=== PATIENT | female | born 1985 | race Caucasian/White ===

== ENCOUNTER 2023-04-09 16:00 | Outpatient (REF) | payer MEDICARE, MEDICAID, SELFPAY ==
[2023-04-10 11:42] LABS: Bilirubin Urine NEGATIVE (NEGATIVE); Blood Urine MODERATE (NEGATIVE); Clarity Urine CLEAR (CLEAR); Color Urine LT. YELLOW (YELLOW); Glucose Urine UA NEGATIVE (NEGATIVE); Ketones Urine NEGATIVE (NEGATIVE); Leukocyte Esterase Urine NEGATIVE (NEGATIVE); Nitrite Urine NEGATIVE (NEGATIVE); Protein Urine NEGATIVE (NEG/TRACE); Urobilinogen Urine 0.2 EU/dL (0.2-1.0)
[2023-04-10 11:44] LABS: Urine Microscopic Indicated YES
[2023-04-10 12:25] LABS: WBC Urine NONE SEEN #/HPF (NONE SEEN)
[2023-04-10 12:26] LABS: Bacteria Urine NONE SEEN #/HPF (NONE SEEN); Crystals Seen? None Seen #/HPF (None Seen); Mucus Urine NONE SEEN (NONE SEEN); Squamous Epithelial Cell Urine FEW #/LPF (NONE/RARE); Transitional Epi Cells Urine RARE #/LPF (NONE SEEN)
[2023-04-10 12:27] LABS: Cast Seen? NONE SEEN #/LPF (NONE SEEN); Urine Culture Indicated NO
== END 2023-04-09 16:01 ==
LOC: LAB 16:00
PROVIDERS: PCP Family Medicine; Visit Provider Family Medicine
DX: R53.1 Weakness (principal); R45.1 Restlessness and agitation; F50.89 Other specified eating disorder
CPT/HCPCS: 81003; 81015

== ENCOUNTER 2023-04-19 06:52 | Outpatient (OUT) | payer MEDICARE, MEDICAID, SELFPAY ==
[2023-04-19 07:39] LABS: Basophils Absolute Auto 0.1 10^3/uL (0.0-0.1); Basophils Percent Auto 2.2 % (0.2-2.0); Eosinophils Percent Auto 0.7 % (0.9-7.0); Hematocrit 38.1 % (36.0-48.0); Hemoglobin 12.7 g/dL (12.0-16.0); Lymphocytes Absolute Auto 1.2 10^3/uL (1.2-3.8); Mean Corpuscular HGB Conc 33.3 g/dL (29.9-35.2); Mean Corpuscular Hemoglobin 27.8 pg (26.7-34.0); Mean Corpuscular Volume 83.4 fL (81.0-99.0); Mean Platelet Volume 10.4 fL (9.5-13.5); Monocytes Absolute Auto 0.4 10^3/uL (0.3-0.8); Monocytes Percent Auto 16.3 % (1.7-12.0); Neutrophils Percent Auto 37.8 % (43.0-75.0); Platelet Count 140 10^3/uL (150-450); Red Blood Count 4.57 10^6/uL (4.20-5.40); Red Cell Distribution Width 12.6 % (11.0-15.0); White Blood Count 2.7 10^3/uL (4.0-11.0)
[2023-04-19 08:58] LABS: Alanine Aminotransferase 26 U/L (14-59); Albumin Globulin Ratio 1.1; Albumin Level 3.6 g/dL (3.4-5.0); Alkaline Phosphatase 105 U/L (46-116); Anion Gap 11.7; Aspartate Amino Transferase 19 U/L (15-37); BUN Creatinine Ratio 21.3; Bilirubin Total 0.3 mg/dL (0.2-1.0); Chloride 103 mmol/L (98-107); Estimated GFR (African America >60 (>=60); Estimated GFR (Non-African Ame >60 (>=60); Globulin 3.4 g/dL; Glucose 86 mg/dL (74-106); Potassium 4.7 mmol/L (3.5-5.1); Sodium 136 mmol/L (136-145)
== END 2023-04-19 06:53 ==
LOC: LAB 06:55
PROVIDERS: PCP Family Medicine; Visit Provider Family Medicine
DX: Z79.899 Other long term (current) drug therapy (principal); K29.70 Gastritis, unspecified, without bleeding
CPT/HCPCS: 36415; 80053; 85025

== ENCOUNTER 2023-12-13 09:22 | Outpatient (OUT) | payer MEDICARE, MEDICAID, SELFPAY ==
[2023-12-13 10:07] LABS: HCG Qualitative NEGATIVE (NEGATIVE)
[2023-12-13 10:36] LABS: HCG Quantitative 2 mIU/mL
[2023-12-14 06:10] LABS: HIV Ab/p24 Ag Screen Non Reactive (Non Reactive)
[2023-12-14 10:11] LABS: Rapid Plasma Reagin, Quant Non Reactive titer (NonRea<1:1)
== END 2023-12-13 09:23 | disposition home or self-care (01) ==
LOC: LAB 09:22
PROVIDERS: PCP Family Medicine; Visit Provider Family Medicine
DX: T76.21XA Adult sexual abuse, suspected, initial encounter (principal); Z32.00 Encounter for pregnancy test, result unknown
CPT/HCPCS: 36415; 84702; 84703; 86592; 87389

== ENCOUNTER 2024-01-15 06:29 | Outpatient (OUT) | payer MEDICARE, MEDICAID, SELFPAY ==
--- OUTSIDE RECORDS SUMMARY | 2024-01-15 06:33 | XMS_ITS | CCD ---
Author Name Unknown Address [address] [place] [address] Organization [facility] Care Team Providers Care Bull Riveter Name Role Phone Unavailable Primary Care Provider UnavailEriberto Edgar Primary Care Provider [phone] Eriberto Layne Primary Care Provider [phone] MD Stephane House Attending Provider ROVERTO, DR ERIBERTO Taylor Primary Care Unavailable CORPUS CHRISTI, DR ROBERT Damian Consulting Unavailable DEVANTE FOSTER Admitting Unavailable DEVANTE FOSTER Attending Unavailable JN ., DEVANTE Consulting Unavailable ROBERT STAHL Consulting Unavailable LAYNE, DR ERIBERTO Taylor Consulting Unavailable LAYNE, DR ERIBERTO Taylor Attending Unavailable LAYNE, DR ERIBERTO Taylor Admitting Unavailable LAYNE, DR ERIBERTO Taylor Primary Care Unavailable KENDRICK, DR ELEANOR Pierre Admitting Unavailable LANGSTON, DR ELEANOR Pierre Consulting Unavailable LANGSTON, DR ELEANOR Pierre Attending Unavailable LAYNE, DR ERIBERTO Taylor Primary Care Unavailable AHOT, LALO Consulting Unavailable April Garnica Attending Unavailable April Garnica Admitting Unavailable Lacy, Stephane Attending Unavailable Stephane House Admitting Unavailable NON STAFF Primary Care Unavailable LIDIA Garnica Attending Provider ERIBERTO LAYNE Primary Care Physician PROVIDER, UNKNOWN Admitting Unavailable PROVIDER, UNKNOWN Attending Unavailable NILDA DAVENPORT Referring Unavailable NILDA DAVENPORT Admitting Unavailable NILDA DAVENPORT Attending Unavailable Unavailable Primary Care Provider UnavailERIBERTO Edgar Attending Unavailable ERIBERTO LAYNE Referring Unavailable ERIBERTO LAYNE Admitting Unavailable LAYNEERIBERTO MEJIA Attending Unavailable LAYNEERIBERTO MEJIA Admitting Unavailable Layne Eriberto OVERTON Primary Care Provider ANTIONETTE DORMAN Attending Unavailable LAYNE, ERIBERTO PARKER Primary Care Unavailab le AL BANMEME, DENISE Attending Unavailable LAYNE, ERIBERTO PARKER Primary Care Unavailab le AL BANNA, DENISE Attending Unavailable NIYA LANDAVERDE Referring Unavailable LAYNE, ERIBERTO PARKER Primary Care Unavailab le RYBARCZJESUS, SUSAN Referring Unavailable LAYNE, ERIBERTO PARKER Primary Care Unavailab le ROSALINA, SUSAN Referring Unavailable LAYNE, ERIBERTO PARKER Primary Care Unavailab le MELISSA, BELLA Escoto Admitting Unavailable SANCHEZ, BELLA Escoto Attending Unavailable LAYNE, ERIBERTO PARKER Primary Care Unavailab le LAYNE, ERIBERTO PARKER Primary Care Unavailab le RYGONZÁLEZ, SUSAN Referring Unavailable LAYNE, ERIBERTO PARKER Primary Care Unavailab le CORIE, KEITH Attending Unavailable LAYNE, ERIBERTO PARKER [facility] Unavailab le BETO, REBECCA Attending Unavailable CORIE, KEITH Referring Unavailable LAYNE, ERIBERTO PARKER Primary Care Unavailab le ROSALINA, SUSAN Attending Unavailable RIA LANGSTON Referring Unavailable LAYNE, ERIBERTO PARKER [facility] Unavailab le LAKIA, ANTIONETTE Pierre Attending Unavailable LAKIA, ANTIONETTE Pierre Referring Unavailable LAYNE, ERIBERTO PARKER [facility] Unavailab le LAKIA, ANTIONETTE Pierre Attending Unavailable LAKIA, ANTIONETTE Pierre Referring Unavailable LAYNE, ERIBERTO PARKER Primary [facility] Unavailab le Unavailable Primary Care Provider Unavailabl e Allergies Allergy Classification Reported Allergen(s) Allergy Type Date of Onset Reaction(s) Facility (13 sources) Lactose; Translations: [LACTOSE] Drug Allergy 5 Diarrhea, GI Upset [facility] (1 source) Lactose Drug Allergy 9 [facility] Medications Current Medications Medication Drug Class(es) Dates Sig (Normalized) Sig (Original) amoxicillin 500 mg oral capsule (1 source) Penicillin-class Antibacterial Start: 08-18-2022 End: 08-25-2022 take 1 capsule by mouth three times daily amoxicillin (AMOXIL) 500 MG capsule Take 1 Capsule by mouth 3 times daily for 7 days. 21 Capsule 0 08/18/2022 08/25/2022 Active chlorhexidine gluconate 1.2 mg/ml mouthwash (5 sources) Start: 09-30-2012 chlorhexidine (PERIDEX) 0.12 % oral solution Soak toothbrush with oral solution and brush 3x/daily. 1 Bottle 3 09/30/2012 Active docusate sodium 100 mg oral tablet (20 sources) Start: 08-02-2022 take 2 tablets by mouth twice daily DOK 100 MG TABS TAKE TWO TABLETS BY MOUTH TWICE A DAY 0 08/02/2022 Active Start: 08-29-2013 End: 09-24-2023 take 1 capsule by mouth three times daily docusate sodium (COLACE) 100 mg capsule Take 1 capsule by mouth three times daily. 0 08/29/2013 09/24/2023 Discontinued take 2 capsules by m out three times daily docusate sodium (COLACE) 100 MG capsule Take 200 mg by mouth 3 times daily. 0 Active Comment on above: Take 1 capsule by mo nch three times daily. ethinyl estradiol 0.035 mg / norethindrone acetate 1 mg oral tablet (4 sources) Estrogen Start: 08-02-2022 take 1 tablet by mouth once daily Nortrel 1/35, 28, 1-35 MG-MCG tablet TAKE ONE TABLET BY MOUTH ONCE DAILY FOR 21 DAYS, SKIP SUGAR PILLS. TAKE SUGAR PILLS EVERY THIRD PACK 0 08/02/2022 Active Start: 07-01-2009 norethindrone- ethinyl estrad(NORTREL 1/35 (21) 1 MG-35 MCG TAB) Take one(1) tablet daily. 0 07/01/2009 Suspended Comment on above: Take one(1) tablet d aily. ibuprofen 600 mg oral tablet (5 sources) Nonsteroidal Anti-inflammatory Drug Start: 2013 take 1 tablet by mouth every six hours as needed for pain ibuprofen (MOTRIN) 600 MG tablet Take 1 Tab by mouth every 6 hours as needed for Pain. 30 Tab 3 01/09/2014 Active iv contrast (will be provided with radiology test) (1 source) Start: 2021 End: 2021 inject 1 dose intravenously once iv contrast (will be provided with radiology test) MRI Brain Inject, intravenously, once for 1 dose.No IV access, insert saline lock prior to beginning of sedation, infusion, injection of imaging exam.Discontinue saline lock post exam. If Pt. has a central line or IVAD, may access for administration according to line specific nursing protocol.Once exam is complete flush line and de-access according to line specific nursing protocol in the MR contrast administration guidelines link 1 Each 0 10/11/2022 10/12/2022 Active Comment on above: MRI Brain Inject, in travenously, once for 1 dose.No IV access, insert saline lock prior to beginning of sedation, infusion, injection of imaging exam.Discontinue saline lock post exam. If Pt. has a central line or IVAD, may access for administration according to line specific nursing protocol.Once exam is complete flush line and de-access according to line specific nursing protocol in the MR contrast administration guidelines link linaclotide 0.29 mg oral capsule (20 sources) Guanylate Cyclase-C Agonist Start: 2021 take 1 capsule by mouth once daily Linzess 290 MCG CAPS capsule Take 290 mcg by mouth daily. 0 08/08/2022 Active Comment on above: Take by mouth once d aily. loperamide hydrochloride 2 mg oral capsule (3 sources) Opioid Agonist Start: 2021 take 2 capsules by mouth every other day loperamide (IMODIUM) 2 MG capsule TAKE 2 CAPSULES (4MG) BY MOUTH FOLLOWING INITIAL STOOL THEN 1 CAPSULE (2MG) AFTER EACH STOOL UNTIL DIARRHEA SUBSIDES UP TO 2 DAYS. MAX 16MG 0 06/27/2022 Active Multiple Vitamins-Minerals (MULTIVITAMIN & MINERAL ORAL) (5 sources) Multiple Vitamins-Minerals (MULTIVITAMIN & MINERAL ORAL) Take by mouth daily. 0 Active omeprazole 20 mg delayed release oral capsule (4 sources) Proton Pump Inhibitor Start: 2021 omeprazole (PRILOSEC) 20 MG capsule Comment on above: Take 20 mg by mouth once daily. raNITIdine 75 mg oral tablet (5 sources) Histamine-2 Receptor Antagonist take 1 tablet by mouth twice daily ranitidine (ZANTAC) 75 MG tablet Take 75 mg by mouth 2 times daily. 0 Active selenium sulfide 25 mg/ml medicated shampoo (3 sources) Start: 2021 selenium sulfide 2.5 % topical suspension Completed/Discontinued Medications Medication Drug Class(es) Dates Sig (Normalized) Sig (Original) acetaminophen 325 mg oral tablet (20 sources) Start: 09-22-2022 take 2 tablets enteral route every four hours as needed acetaminophen (TYLENOL) 325 mg tablet 2 tablets by ORAL/FEEDING TUBE route every 4 hours as needed for pain. 0 09/22/2022 Active Start: 09-22-2022 take 2 tablets by mo uth every four hours as needed acetaminophen (TYLENOL) 325 mg tablet 2 tablets by ORAL/FEEDING TUBE route every 4 hours as needed for pain. 0 09/22/2022 Active Start: 08-18-2022 take 1 tablet by edwige th every six hours as needed for pain acetaminophen (TYLENOL) 500 MG tablet Take 1 Tablet by mouth every 6 hours as needed for Pain or Fever. 30 Tablet 1 08/18/2022 Active Comment on above: 2 tablets by ORAL/FE EDING TUBE route every 4 hours as needed for pain. aluminum hydroxide 40 mg/ml / magnesium hydroxide 40 mg/ml / simethicone 4 mg/ml oral suspension (20 sources) Start: take 30 mL by mouth every six hours as needed aluminum-magnesium hydroxide-simethicon e (MAALOX,MYLANTA,MAG- AL PLUS) 200-200-20 mg/5 mL suspension Take 30 mL by mouth every 6 hours as needed. 0 09/22/2022 Active Comment on above: Take 30 mL by mouth every 6 hours as needed. 1 ml heparin sodium, porcine 5000 unt/ml injection (14 sources) Unfractionated Heparin, Anti-coagulant Start: End: inject 0.5 mL by subcutaneous injection every twelve hours heparin 5,000 unit/mL injection Inject 0.5 mL subcutaneously every 12 hours. 0 09/22/2022 11/28/2022 Discontinued (Course of therapy completed) Comment on above: Inject 0.5 mL subcut aneously every 12 hours. lisinopril 5 mg oral tablet (20 sources) Angiotensin Converting Enzyme Inhibitor Start: take 1 tablet by mouth once daily lisinopril (ZESTRIL, PRINIVIL) 5 mg tablet 1 tablet by ORAL/FEEDING TUBE route once daily. 0 09/23/2022 Active Start: 09-23-2022 take 1 tablet by edwige th once daily lisinopril (ZESTRIL, PRINIVIL) 5 mg tablet 1 tablet by ORAL/FEEDING TUBE route once daily. 0 09/23/2022 Active Comment on above: 1 tablet by ORAL/FEE DING TUBE route once daily. loratadine 10 mg oral tablet (20 sources) Start: 1 take 1 tablet by mouth once daily as needed loratadine (CLARITIN) 10 mg tablet Take 1 tablet by mouth once daily as needed for Cold/Allergy Symptoms (for allergy symptoms). 0 04/07/2011 Active Comment on above: Take 1 tablet by edwige th once daily as needed for Cold/Allergy Symptoms (for allergy symptoms). melatonin 3 mg oral tablet (20 sources) Start: 2 take 1 tablet by mouth once daily at bedtime melatonin 3 mg tablet 1 tablet by ORAL/FEEDING TUBE route daily at bedtime. 0 09/22/2022 Active Start: 09-22-2022 take 1 tablet by edwige th once daily at bedtime melatonin 3 mg tablet 1 tablet by ORAL/FEEDING TUBE route daily at bedtime. 0 09/22/2022 Active Comment on above: 1 tablet by ORAL/FEE DING TUBE route daily at bedtime. montelukast 10 mg oral tablet (20 sources) Leukotriene Receptor Antagonist Start: 05-24-2017 montelukast (SINGULAIR) 10 mg tablet MULTIVITAMIN TAB (20 sources) Start: 07-01-2009 MULTIVITAMIN TAB Take one(1) tablet daily. 0 07/01/2009 Active Start: 07-01-2009 MULTIVITAMIN T AB Take one(1) tablet daily. 0 07/01/2009 Suspended Comment on above: Take one(1) tablet d aily. OLANZapine 15 mg oral tablet (20 sources) Atypical Antipsychotic Start: 2 take 1 tablet by mouth once daily at bedtime OLANZapine (ZYPREXA) 15 mg tablet 1 tablet by ORAL/FEEDING TUBE route daily at bedtime. 0 09/22/2022 Active Start: 09-22-2022 take 1 tablet by edwige th once daily at bedtime OLANZapine (ZYPREXA) 15 mg tablet 1 tablet by ORAL/FEEDING TUBE route daily at bedtime. 0 09/22/2022 Active Start: 07-01-2009 olanzapine(ZYP REXA 10 MG TAB) take 1 tab at bedtime daily 0 07/01/2009 Suspended Comment on above: take 1 tab at bedtim e daily 1 tablet by ORAL/FEE DING TUBE route daily at bedtime. 2 ml ondansetron 2 mg/ml injection (20 sources) Serotonin-3 Receptor Antagonist Start: take 4 mg intravenously every six hours as needed ondansetron, PF, (ZOFRAN) 4 mg/2 mL soln Inject 4 mg intravenously every 6 hours as needed. 0 09/22/2022 Active Comment on above: Inject 4 mg intraven ously every 6 hours as needed. polyethylene glycol 3350 13576 mg powder for oral solution (1 source) Osmotic Laxative Start: polyethylene glycol 3350 (MIRALAX) 17 gram/dose powder Take 17 g by mouth once daily. 0 09/24/2023 Active Comment on above: Take 17 g by mouth o nce daily. sennosides, long term 8.6 mg oral capsule (10 sources) Start: End: Sennosides (SENNA) 8.6 mg cap Take 1 capsule by mouth as needed. 0 10/06/2022 11/28/2022 Discontinued (Discontinued by another Health Care Provider) Comment on above: Take 1 capsule by [facility] as needed. sodium fluoride 2 mg/ml mouthwash (20 sources) Sodium Fluoride, Dental Rinse, (PREVIDENT) 0.2 % soln by DENTAL route. Use every Sunday at bedtime. 0 Active Comment on above: by DENTAL route. Use every Sunday at bedtime. sucralfate 100 mg/ml oral suspension (20 sources) Aluminum Complex Start: take 10 mL by mouth three times daily before mealtime sucralfate (CARAFATE) 100 mg/mL suspension Take 10 mL by mouth three times daily before meals. 900 mL 11 08/23/2016 Active take 1 tablet by mouth three [place] es daily sucralfate (CARAFATE) 1 GM tablet Take 1 g by mouth 3 times daily. 0 Active Comment on above: Take 10 mL by mouth three times daily before meals. 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] Onset: 2 09-12-2022 Chronic Complications of surgical procedures or medical care (1 source) Disorder of stoma; Translations: [Other complications of gastrostomy] Episodic Developmental disorders (2 sources) Unspecified intellectual disabilities; Translations: [Profound intellectual disabilities] Onset: 2 Chronic Esophageal disorders (20 sources) Gastroesophageal reflux disease; Translations: [Gastro-esophageal reflux disease without esophagitis] Onset: 9 08-15-2022 Chronic Hypertension with complications and secondary hypertension (20 sources) Secondary hypertension; Translations: [Secondary hypertension, unspecified] Onset: 2 09-08-2022 Chronic Late effects of cerebrovascular disease (20 sources) 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; Translations: [Dysphagia following nontraumatic intracerebral hemorrhage] Onset: 2 09-06-2022 Chronic Mycoses (1 source) Candidiasis of mouth; Translations: [Candidal stomatitis] Episodic Nutritional deficiencies (20 sources) Undernutrition; Translations: [Mild protein-calorie malnutrition] Onset: 2 09-07-2022 Chronic Other aftercare (1 source) Other correction (current) drug therapy; Translations: [OTH [facility] CURRENT DRUG THERAPY] Onset: 2 Episodic Other congenital anomalies (20 sources) De Hastings syndrome; 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] Onset: 5 08-15-2022 Chronic Other gastrointestinal disorders (20 sources) History of fundoplication; Translations: [Gastrostomy status] Onset: 2 09-07-2022 Chronic Other gastrointestinal disorders (4 sources) Encounter for attention to gastrostomy; Translations: [ENCOUNTER FOR ATTENTION GASTROSTOMY] Onset: 2 Chronic Other gastrointestinal disorders (4 sources) Dysphagia, unspecified; Translations: [DYSPHAGIA UNSPECIFIED] Onset: 2 Episodic Other gastrointestinal disorders (2 sources) Slow transit constipation; Translations: [Slow transit constipation] Episodic Other nutritional; endocrine; and metabolic disorders (20 sources) Hypomagnesemia; Translations: [Hypomagnesemia] Onset: 2 09-12-2022 Chronic Other nutritional; endocrine; and metabolic disorders (1 source) Anorexia; Translations: [ANOREXIA] Onset: 3 Episodic Paralysis (20 sources) Flaccid hemiplegia of left nondominant side; Translations: [Flaccid hemiplegia affecting left nondominant side] Onset: 2 09-06-2022 Chronic Residual codes; unclassified (20 sources) Restlessness and agitation; Translations: [Restlessness and agitation] Onset: 2 09-15-2022 Chronic Residual codes; unclassified (3 sources) Restlessness and agitation; Translations: [RESTLESSNESS AND AGITATION] Onset: 3 Chronic Residual codes; unclassified (1 source) History of fundoplication; Translations: [Other specified postprocedural states] Episodic Unclassified (1 source) OPENED IN ERROR Unclassified (2 sources) 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; Translations: [OTH CNG MLFM SYN PRDM ASC SHRT STAT] Onset: 2 Unclassified (1 source) CONTACT W/AND (SUSP) EXPOS COVID-19; Translations: [CONTACT W/AND (SUSP) EXPOS COVID-19] Onset: 2 Unclassified (1 source) Gynecologic Exam Onset: 4 Past or Other Problems Problem Classification Problem Date Documented Da te Episodic/Chronic Abdominal pain (1 source) Abdominal pain Onset: 04-06-2023 Episodic Disorders of teeth and jaw (6 sources) Dental caries; Translations: [Dental caries, unspecified] Onset: 11-25-2018 08-10-2022 Episodic Fluid and electrolyte disorders (20 sources) Hypokalemia; Translations: [Hypokalemia] Onset: 09-13-2022 09-13-2022 Episodic Neoplasms of unspecified nature or uncertain behavior (1 source) Neoplasm of unspecified behavior of bone, soft tissue, and skin; Translations: [Neoplasm of unspecified behavior of bone, soft tissue, and skin] Onset: 11-15-2022 Episodic Other circulatory disease (1 source) Unspecified disorder of circulatory system; Translations: [Vasculopathy] Onset: 12-27-2022 Episodic Other gastrointestinal disorders (20 sources) Constipation; Translations: [Constipation, unspecified] Onset: 02-15-2010 08-15-2022 Episodic Other nutritional; endocrine; and metabolic disorders (1 source) Unspecified lack of expected normal physiological development in childhood; Translations: [Developmental delay] Onset: 03-28-2023 Episodic Other screening for suspected conditions (not mental disorders or infectious disease) (20 sources) Other specified abnormal findings of blood chemistry; Translations: [Other abnormal blood chemistry] Onset: 09-14-2022 09-14-2022 Episodic Results Test Name Value Interpretation Reference Range Facility [facility] 09-24-2023 [facility] Telephone (GASTMADDIE) CHERYL SCRUGGS ([id number]) 1985 F Date Time Provider Department 09/24/23 ANTIONETTE DORMAN GASTMADDIE During your visit today, we recorded the following information about you: Antionette Dorman MD, PhD 09/24/2023 10:35 AM Signed Missed appt Called mom lm Allergies As of Date: 09/24/2023 Noted Allergy Reaction LACTOSE 1985 6 - Diarrhea 8 - GI Upset Date Reviewed: 04/06/2023 Reviewed by: Blanca Nugent, RN - Fully Assessed Prescriptions as of 09/24/2023 - OLANZapine (ZYPREXA) 15 mg tablet 1 tablet by ORAL/FEEDING TUBE route daily at bedtime. - acetaminophen (TYLENOL) 325 mg tablet 2 tablets by ORAL/FEEDING TUBE route every 4 hours as needed for pain. - aluminum-magnesium hydroxide-simethicon e (MAALOX,MYLANTA,MAG- AL PLUS) 200-200-20 mg/5 mL suspension Take 30 mL by mouth every 6 hours as needed. - lisinopril (ZESTRIL, PRINIVIL) 5 mg tablet 1 tablet by ORAL/FEEDING TUBE route once daily. - melatonin 3 mg tablet 1 tablet by ORAL/FEEDING TUBE route daily at bedtime. - ondansetron, PF, (ZOFRAN) 4 mg/2 mL soln Inject 4 mg intravenously every 6 hours as needed. - linaCLOtide (LINZESS) 290 mcg capsule Take by mouth once daily. - Sodium Fluoride, Dental Rinse, (PREVIDENT) 0.2 % soln by DENTAL route. Use every Sunday at bedtime. - montelukast (SINGULAIR) 10 mg tablet - sucralfate (CARAFATE) 100 mg/mL suspension Take 10 mL by mouth three times daily before meals. - docusate sodium (COLACE) 100 mg capsule Take 1 capsule by mouth three times daily. - loratadine (CLARITIN) 10 mg tablet Take 1 tablet by mouth once daily as needed for Cold/Allergy Symptoms (for allergy symptoms). - MULTIVITAMIN TAB Take one(1) tablet daily. 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] 03/18/2015 Right-sided nontraumatic intracerebral hemorrha*09/05/2022 Flaccid hemiplegia affecting left nondominant s*09/06/2022 03/28/2023 Dysphagia following nontraumatic intracerebral *09/06/2022 S/P Stefanie fundoplication (with gastrostomy tub*09/07/2022 Malnutrition of mild degree (HCC) [E44.1] 09/07/2022 Secondary hypertension [I15.9] 09/08/2022 Hypomagnesemia [E83.42] 09/12/2022 Thrombocytopenia (HCC) [D69.6] 09/12/2022 09/18/2022 Hypokalemia [E87.6] 09/13/2022 Elevated LFTs [R79.89] 09/14/2022 Restlessness and agitation [R45.1] 09/15/2022 Encounter Status:Closed by ANTIONETTE DORMAN on 09/24/23 Normal [facility] Auto Diffon 09-19-2023 Basophils/100 WBC (Bld) 1.6 % Normal 0.0-2.0 [facility] Comment on above: Order Comment: Order Added by Discern Expert. Performed By: #### 2 [id number] #### [facility] [address] [place] [address] Basophils/Leukocytes Auto (Bld) [Pure # fraction] 0.1 E9/L Normal 0.0-0.2 [facility] Comment on above: Order Comment: Order Added by Discern Expert. Performed By: #### 2 [id number] #### [facility] [address] [place] [address] Eosinophils/100 WBC (Bld) 0.0 % Normal 0.0-8.0 [facility] Comment on above: Order Comment: Order Added by Discern Expert. Performed By: #### 2 [id number] #### [facility] [address] [place] [id number] Eosinophils/Leukocyte s Auto (Bld) [Pure # fraction] 0.0 E9/L Normal 0.0-0.5 [facility] Comment on above: Order Comment: Order Added by Discern Expert. Performed By: #### 2 [id number] #### [facility] [address] [place] [address] Lymphocytes/100 WBC (Bld) 36.1 % Normal 14.0-50.0 [facility] Comment on above: Order Comment: Order Added by Discern Expert. Performed By: #### 2 [id number] #### [facility] [address] [place] [id number] Lymphocytes/Leukocyte s Auto (Bld) [Pure # fraction] 1.2 E9/L Normal 1.0-4.0 [facility] Comment on above: Order Comment: Order Added by Discern Expert. Performed By: #### 2 [id number] #### [facility] [address] [place] [address] Monocytes/100 WBC (Bld) 12.9 % Normal 4.0-14.0 [facility] Comment on above: Order Comment: Order Added by Discern Expert. Performed By: #### 2 [id number], [id number] #### [facility] [address] [place] [id number] Monocytes/Leukocytes Auto (Bld) [Pure # fraction] 0.4 E9/L Normal 0.2-1.0 [facility] Comment on above: Order Comment: Order Added by Discern Expert. Performed By: #### 2 [id number] #### [facility] [address] [place] [address] Neutrophils/100 WBC (Bld) 49.4 % Normal 36.0-75.0 [facility] Comment on above: Order Comment: Order Added by Discern Expert. Performed By: #### 2 [id number], [id number] #### [facility] [address] [place] [address] Neutrophils/Leukocyte s Auto (Bld) [Pure # fraction] 1.6 E9/L Low 2.0-7.5 [facility] Comment on above: Order Comment: Order Added by Discern Expert. Performed By: #### 2 [id number] #### [facility] [address] [place] [address] CBC w/ Auto Diffon 3 Erythrocyte distribution width (RBC) [Ratio] 14.3 % High 10.9-14.2 [facility] Comment on above: Performed By: #### 2 [id number] #### [facility] [address] [place] [address] Hematocrit (Bld) [Volume fraction] 39.7 % Normal 34.0-46.0 [facility] Comment on above: Performed By: #### 2 [id number] #### [facility] [address] [place] [address] Hemoglobin (Bld) [Mass/Vol] 13.0 g/dL Normal 12.0-16.0 [facility] Comment on above: Performed By: #### 2 [id number], [id number] #### [facility] [address] [place] [address] MCH (RBC) [Entitic mass] 27.5 pg Normal 27.0-34.0 [facility] Comment on above: Performed By: #### 2 [id number], [id number] #### [facility] [address] [place] [address] MCHC (RBC) [Mass/Vol] 32.6 g/dL Normal 31.4-36.0 [facility] Comment on above: Performed By: #### 2 [id number], [id number] #### [facility] [address] [place] [address] MCV (RBC) [Entitic vol] 84.3 fL Normal 80.0-100.0 [facility] Comment on above: Performed By: #### 2 [id number], [id number] #### [facility] [address] [place] [address] Platelet mean volume (Bld) [Entitic vol] 8.9 fL Normal 6.4-10.8 [facility] Comment on above: Performed By: #### 2 [id number], [id number] #### [facility] [address] [place] [address] Platelets (Bld) [#/Vol] 140.0 E9/L Low 150.0-500.0 [facility] Comment on above: Performed By: #### 2 [id number], [id number] #### [facility] [address] [place] [address] RBC (Bld) [#/Vol] 4.7 E12/L Normal 4.3-5.9 [facility] Comment on above: Performed By: #### 2 [id number], [id number] #### [facility] [address] [place] [address] WBC corrected for nucl RBC Auto (Bld) [#/Vol] 3.3 E9/L Low 4.0-11.0 [facility] Comment on above: Performed By: #### 2 [id number], [id number] #### [facility] [address] [place] [address] HEMATOLOGYOrdered By: SYSTEM SYSTEM on 09-19-2023 Basophils/100 WBC (Bld) 1.6 % Normal 0.0 - 2.0 % [facility] Basophils/Leukocytes Auto (Bld) [Pure # fraction] 0.1 E9/L Normal 0.0 - 0.2 E9/L [facility] Eosinophils/100 WBC (Bld) 0.0 % Normal 0.0 - 8.0 % [facility] Eosinophils/Leukocyte s Auto (Bld) [Pure # fraction] 0.0 E9/L Normal 0.0 - 0.5 E9/L [facility] Lymphocytes/100 WBC (Bld) 36.1 % Normal 14.0 - 50.0 % [facility] Lymphocytes/Leukocyte s Auto (Bld) [Pure # fraction] 1.2 E9/L Normal 1.0 - 4.0 E9/L [facility] Monocytes/100 WBC (Bld) 12.9 % Normal 4.0 - 14.0 % [facility] Monocytes/Leukocytes Auto (Bld) [Pure # fraction] 0.4 E9/L Normal 0.2 - 1.0 E9/L [facility] Neutrophils/100 WBC (Bld) 49.4 % Normal 36.0 - 75.0 % [facility] Neutrophils/Leukocyte s Auto (Bld) [Pure # fraction] 1.6 E9/L Low 2.0 - 7.5 E9/L [facility] HEMATOLOGYOrdered By: Edwin Langston on 09-19-2023 Erythrocyte distribution width (RBC) [Ratio] 14.3 % High 10.9 - 14.2 % [facility] Hematocrit (Bld) [Volume fraction] 39.7 % Normal 34.0 - 46.0 % [facility] S Hemoglobin (Bld) [Mass/Vol] 13.0 g/dL Normal 12.0 - 16.0 gm/dL [facility] MCH (RBC) [Entitic mass] 27.5 pg Normal 27.0 - 34.0 pg [facility] MCHC (RBC) [Mass/Vol] 32.6 g/dL Normal 31.4 - 36.0 gm/dL [facility] MCV (RBC) [Entitic vol] 84.3 fL Normal 80.0 - 100.0 fL [facility] Platelet mean volume (Bld) [Entitic vol] 8.9 fL Normal 6.4 - 10.8 fL [facility] Platelets (Bld) [#/Vol] 140.0 E9/L Low 150.0 - 500.0 E9/L [facility] RBC (Bld) [#/Vol] 4.7 E12/L Normal 4.3 - 5.9 E12/L [facility] WBC corrected for nucl RBC Auto (Bld) [#/Vol] 3.3 E9/L Low 4.0 - 11.0 E9/L [facility] Physician Orderon 09-19-2023 Physician Order [id number] Normal [facility] Progress Noteson 05-09-2023 Hearing Aid Dispenser Authentication Interface Message Text ----- Tuesday, May 09, 2023 at 4:24:15 PM ----- ----- Provider: Coral Reynolds, Resident -- Clinic: [place] ----- [facility] called concerning about pt is grinding and night and chipped one of her teeth. I returned the call back but the nurse she didn't have any idea about the situation. Recommended calling and scheduling appt to address the problem Phone number: [phone] Ext: [phone] Normal [employer] Consent for Treatmenton 04-06 Consent for Treatment [phone] [id number] #1.00CD:127 Normal [facility] XR Adult Swallowing Function w/ Videoon 05-02-2023 XR Adult Swallowing Function w/ Video Exam Date/Time: 05/02/2023 09:20 EDT Reason for Exam: DYSPHAGIA Report IMPRESSION: PLEASE SEE DEDICATED SPEECH PATHOLOGY REPORT FOR FURTHER DETAILS. REASON FOR EXAM: Dysphagia TECHNIQUE: A modified barium swallow study was performed utilizing fluoroscopy in conjunction with speech pathology. Various consistencies of barium were administered. Number of images: 7 series The total radiation time is 3.4 minutes, Radiation dose area product is 192.99mGy*m2 Cumulative radiation dose is 8.30mGy FINDINGS: Fluoroscopic assistance was provided during the course of examination with any of the provided consistencies of pudding, fruit, larry cracker and thin liquids as noted in the final report. Ordering Provider: ERIBERTO LAYNE FINAL REPORT Dictated: 05/02/2023 2:29 pm Jamir Borderick MD, V. Signed (Electronic Signature): 05/02/2023 2:29 pm Signed by: Jamir Broderick MD, V. Transcribed by: DHARA Technologist: RENE Technical Comments Radiation Dose: Ka,r in mGy = 8.30 DAP = 192.99 Normal [facility] Physician Orderon 05-01-2023 Physician Order [id number] #1.00CD:127 Normal [facility] CNPNon 04-26-2023 CNPN Telephone (GASTMN) CHERYL SCRUGGS ([id number]) 1985 F Date Time Provider Department 04/26/23 ANTIONETTE DORMAN During your visit today, we recorded the following information about you: Minda Salinas Pss 04/26/2023 12:14 PM Signed MANUEL Dean with [facility] calling to confirm if appt should be kept for 05/01 because will not have modified barium swallow with Rowe Tino until 05/02. Nurses cell phone Patient has been identified by name and birthdate. Duration of symptoms: N/A Was an appointment scheduled: No Closing statement: Results or non-symptom based questions: Thank you for calling [facility], your call will be returned within the next business day. Minda Ceballos RN 04/26/2023 3:11 PM Signed Patient asking if needs to keep DH 05/01/23. (Not having barium swallow with Rowe Tino until 05/02) Last OV:04/06/23 Will ask MD Antionette Patel MD, PhD 04/26/2023 3:28 PM Signed Can cancel Jazzy Ceballos RN 04/26/2023 4:35 PM Signed Call placed to patient confirm can cancel DH appt on 05/01/23. Spoke to MANUEL Escalante at [facility]. Aware can cancel and would like to confirm with parents. Will confirm cancellation by tomorrow. Allergies As of Date: 04/26/2023 Noted Allergy Reaction LACTOSE 1985 6 - Diarrhea 8 - GI Upset Date Reviewed: 04/06/2023 Reviewed by: Blanca Nugent RN - Fully Assessed Reason for Visit: Appointment [186] Prescriptions as of 04/26/2023 - OLANZapine (ZYPREXA) 15 mg tablet 1 tablet by ORAL/FEEDING TUBE route daily at bedtime. - acetaminophen (TYLENOL) 325 mg tablet 2 tablets by ORAL/FEEDING TUBE route every 4 hours as needed for pain. - aluminum-magnesium hydroxide-simethicon e (MAALOX,MYLANTA,MAG- AL PLUS) 200-200-20 mg/5 mL suspension Take 30 mL by mouth every 6 hours as needed. - lisinopril (ZESTRIL, PRINIVIL) 5 mg tablet 1 tablet by ORAL/FEEDING TUBE route once daily. - melatonin 3 mg tablet 1 tablet by ORAL/FEEDING TUBE route daily at bedtime. - ondansetron, PF, (ZOFRAN) 4 mg/2 mL soln Inject 4 mg intravenously every 6 hours as needed. - linaCLOtide (LINZESS) 290 mcg capsule Take by mouth once daily. - Sodium Fluoride, Dental Rinse, (PREVIDENT) 0.2 % soln by DENTAL route. Use every Sunday at bedtime. - montelukast (SINGULAIR) 10 mg tablet - sucralfate (CARAFATE) 100 mg/mL suspension Take 10 mL by mouth three times daily before meals. - docusate sodium (COLACE) 100 mg capsule Take 1 capsule by mouth three times daily. - loratadine (CLARITIN) 10 mg tablet Take 1 tablet by mouth once daily as needed for Cold/Allergy Symptoms (for allergy symptoms). - MULTIVITAMIN TAB Take one(1) tablet daily. 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 03/28/2023 Dysphagia following nontraumatic intracerebral *09/06/2022 S/P Stefanie fundoplication (with gastrostomy tub*09/07/2022 Malnutrition of mild degree (HCC) [E44.1] 09/07/2022 Secondary hypertension [I15.9] 09/08/2022 Hypomagnesemia [E83.42] 09/12/2022 Thrombocytopenia (HCC) [D69.6] 09/12/2022 09/18/2022 Hypokalemia [E87.6] 09/13/2022 Elevated LFTs [R79.89] 09/14/2022 Restlessness and agitation [R45.1] 09/15/2022 Encounter Status:Closed by JAZZY CEBALLOS on 04/26/23 [facility] 04-19-2023 CNPN Telephone (PGASMN) CHERYL SCRUGGS ([id number]) 1985 F Date Time Provider Department 04/19/23 ANTIONETTE DORMAN During your visit today, we recorded the following information about you: Antionette Dorman MD, PhD 04/19/2023 11:40 AM Signed Called mom Got voice mail Call Quang Says she is doing better She is eating Refusing fluids Going through spurts where she wont eat and hits her selt Holding things in mouth Has a swallow study Trying to do I and 0 Still ripped it out Had excessive burping At times On 2 abx for scalp infection On highter dose carafate Advised may need ppi Allergies As of Date: 04/19/2023 Noted Allergy Reaction LACTOSE 1985 6 - Diarrhea 8 - GI Upset Date Reviewed: 04/06/2023 Reviewed by: Blanca Nugent RN - Fully Assessed Reason for Visit: Patient Update [1234] Prescriptions as of 04/19/2023 - OLANZapine (ZYPREXA) 15 mg tablet 1 tablet by ORAL/FEEDING TUBE route daily at bedtime. - acetaminophen (TYLENOL) 325 mg tablet 2 tablets by ORAL/FEEDING TUBE route every 4 hours as needed for pain. - aluminum-magnesium hydroxide-simethicon e (MAALOX,MYLANTA,MAG- AL PLUS) 200-200-20 mg/5 mL suspension Take 30 mL by mouth every 6 hours as needed. - lisinopril (ZESTRIL, PRINIVIL) 5 mg tablet 1 tablet by ORAL/FEEDING TUBE route once daily. - melatonin 3 mg tablet 1 tablet by ORAL/FEEDING TUBE route daily at bedtime. - ondansetron, PF, (ZOFRAN) 4 mg/2 mL soln Inject 4 mg intravenously every 6 hours as needed. - linaCLOtide (LINZESS) 290 mcg capsule Take by mouth once daily. - Sodium Fluoride, Dental Rinse, (PREVIDENT) 0.2 % soln by DENTAL route. Use every Sunday at bedtime. - montelukast (SINGULAIR) 10 mg tablet - sucralfate (CARAFATE) 100 mg/mL suspension Take 10 mL by mouth three times daily before meals. - docusate sodium (COLACE) 100 mg capsule Take 1 capsule by mouth three times daily. - loratadine (CLARITIN) 10 mg tablet Take 1 tablet by mouth once daily as needed for Cold/Allergy Symptoms (for allergy symptoms). - MULTIVITAMIN TAB Take one(1) tablet daily. 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/2022 03/28/2023 Dysphagia following nontraumatic intracerebral *09/06/2022 S/P Stefanie fundoplication (with gastrostomy tub*09/07/2022 Malnutrition of mild degree (HCC) [E44.1] 09/07/2022 Secondary hypertension [I15.9] 09/08/2022 Hypomagnesemia [E83.42] 09/12/2022 Thrombocytopenia (HCC) [D69.6] 09/12/2022 09/18/2022 Hypokalemia [E87.6] 09/13/2022 Elevated LFTs [R79.89] 09/14/2022 Restlessness and agitation [R45.1] 09/15/2022 Encounter Status:Closed by ANTIONETTE DORMAN on 04/19/23 [facility] 04-09-2023 [facility] Telephone (GASTAV) CHERYL SCRUGGS ([id number]) 1985 F Date Time Provider Department 04/09/23 ANTIONETTE DORMAN During your visit today, we recorded the following information about you: Dunia Whitfield 04/09/2023 10:46 AM Signed Sammie from [facility] calling stating patient went to ED 04/[address] Dorman recommendations at OV / and patient left after 4 hours of being there and not being seen. Sammie would like to know when Dr Dorman would like patient to follow up. Sammie states patient went home with her mom that day and did eat. Sammie can be reached at [phone]. Please advise. Jazzy Ceballos, JUVE 04/13/2023 2:13 PM Signed Will update Dr. Lakia MD (Can I offer 06/08/23 at 1pm-same day?I do not see anything sooner) Susan Barnes OCCClaudia 05/23/2023 2:05 PM Signed Received Barium swallow study on 05/23/2023. Sent down to be scanned on 05/23/23. Susan Barnes KOJO Allergies As of Date: 04/09/2023 Noted Allergy Reaction LACTOSE 1985 6 - Diarrhea 8 - GI Upset Date Reviewed: 04/06/2023 Reviewed by: Blanca Nugent RN - Fully Assessed Reason for Visit: Patient Update [3784] Received Outside Medical Records [3576] Prescriptions as of 05/23/2023 - OLANZapine (ZYPREXA) 15 mg tablet 1 tablet by ORAL/FEEDING TUBE route daily at bedtime. - acetaminophen (TYLENOL) 325 mg tablet 2 tablets by ORAL/FEEDING TUBE route every 4 hours as needed for pain. - aluminum-magnesium hydroxide-simethicon e (MAALOX,MYLANTA,MAG- AL PLUS) 200-200-20 mg/5 mL suspension Take 30 mL by mouth every 6 hours as needed. - lisinopril (ZESTRIL, PRINIVIL) 5 mg tablet 1 tablet by ORAL/FEEDING TUBE route once daily. - melatonin 3 mg tablet 1 tablet by ORAL/FEEDING TUBE route daily at bedtime. - ondansetron, PF, (ZOFRAN) 4 mg/2 mL soln Inject 4 mg intravenously every 6 hours as needed. - linaCLOtide (LINZESS) 290 mcg capsule Take by mouth once daily. - Sodium Fluoride, Dental Rinse, (PREVIDENT) 0.2 % soln by DENTAL route. Use every Sunday at bedtime. - montelukast (SINGULAIR) 10 mg tablet - sucralfate (CARAFATE) 100 mg/mL suspension Take 10 mL by mouth three times daily before meals. - docusate sodium (COLACE) 100 mg capsule Take 1 capsule by mouth three times daily. - loratadine (CLARITIN) 10 mg tablet Take 1 tablet by mouth once daily as needed for Cold/Allergy Symptoms (for allergy symptoms). - MULTIVITAMIN TAB Take one(1) tablet daily. 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/2022 03/28/2023 Dysphagia following nontraumatic intracerebral *09/06/2022 S/P Stefanie fundoplication (with gastrostomy tub*09/07/2022 Malnutrition of mild degree (HCC) [E44.1] 09/07/2022 Secondary hypertension [I15.9] 09/08/2022 Hypomagnesemia [E83.42] 09/12/2022 Thrombocytopenia (HCC) [D69.6] 09/12/2022 09/18/2022 Hypokalemia [E87.6] 09/13/2022 Elevated LFTs [R79.89] 09/14/2022 Restlessness and agitation [R45.1] 09/15/2022 Encounter Status:Closed by SUSAN BARNES on 05/23/23 [facility] CNGianna 04-06-2023 CNOV Office Visit (LAMONTAV) CHERYL SCRUGGS ([id number]) 1985 F Date Time Provider Department 04/06/23 12:00 PM ANTIONETTE DORMAN During your visit today, we recorded the following information about you: Pulse Blood pressure 92/minute 126/90 Antionette Dorman MD, PhD 04/06/2023 12:31 PM Signed EST PT OFFICE VISIT Patient states, not eating well last few days.increase burping. Pain with Bms. Regular stool appearance. No bleeding. CC: Patient presents with: Established Patient Follow-Up: F/u Slow transit constipation Ms. Scruggs is here today for follow-up of: constipation. Mom says she is having a lot of pain Has pain with bm and cries Also burping a lot Was doing ok when she saw nuerologist The burping is bizarre After that is going on Is not wanting to eat Today her mom gave her some water and she is refusing to swallow then drying She is refusing to eat Worried about not swallowing Her peg is out She took the peg out twice and they tried to put it back in then she pulled it out Then she was eating well Not sure what is going on Crying and burping VITALS: Blood pressure 126/90, pulse 92, last menstrual period 04/01/2011. ALLERGIES: Lactose MEDICATIONS: Current Outpatient Medications Medication Sig Dispense Refill OLANZapine (ZYPREXA) 15 mg tablet 1 tablet by ORAL/FEEDING TUBE route daily at bedtime. acetaminophen (TYLENOL) 325 mg tablet 2 tablets by ORAL/FEEDING TUBE route every 4 hours as needed for pain. aluminum-magnesium hydroxide-simethicon e (MAALOX,MYLANTA,MAG- AL PLUS) 200-200-20 mg/5 mL suspension Take 30 mL by mouth every 6 hours as needed. lisinopril (ZESTRIL, PRINIVIL) 5 mg tablet 1 tablet by ORAL/FEEDING TUBE route once daily. melatonin 3 mg tablet 1 tablet by ORAL/FEEDING TUBE route daily at bedtime. ondansetron, PF, (ZOFRAN) 4 mg/2 mL soln Inject 4 mg intravenously every 6 hours as needed. linaCLOtide (LINZESS) 290 mcg capsule Take by mouth once daily. Sodium Fluoride, Dental Rinse, (PREVIDENT) 0.2 % soln by DENTAL route. Use every Sunday at bedtime. montelukast (SINGULAIR) 10 mg tablet sucralfate (CARAFATE) 100 mg/mL suspension Take 10 mL by mouth three times daily before meals. 900 mL 11 docusate sodium (COLACE) 100 mg capsule Take 1 capsule by mouth three times daily. loratadine (CLARITIN) 10 mg tablet Take 1 tablet by mouth once daily as needed for Cold/Allergy Symptoms (for allergy symptoms). 0 MULTIVITAMIN TAB Take one(1) tablet daily. 0 No current facility-administere d medications for this visit. Social History: Social History Tobacco Use Smoking status: Never Smokeless tobacco: Never Vaping Use Vaping Use: Never used Substance Use Topics Alcohol use: Never Drug use: Never Medical History: No changes since last visit. REVIEW OF SYSTEMS: GENERAL: weight stable, no fevers. CARDIOVASCULAR: No chest pain, no edema RESPIRATORY: No dyspnea The remainder of the review of systems are negative. Reviewed with patient during visit today. PHYSICAL EXAMINATION: GENERAL APPEARANCE: Well developed and well nourished. Tearing up SKIN: Skin color, texture, turgor normal. No rashes or lesions. EYES: Conjunctiva normal without icterus. OROPHARYNX: lips, mucosa, and tongue normal, teeth and gums normal NECK: Supple, full range of motion, no lymphadenopathy, normal thyroid, LUNGS: Normal breath sounds, Clear to auscultation, No wheezes, No crackles. HEART:Normal PMI, Regular rate and rhythm, Normal heart sounds, S1 and S2 and No murmurs. NEURO: Alert and oriented in no acute distress. ABDOMEN: Normal bowel sounds, abdomen flat with no distention, Soft, minimally tender, no hepatomegaly. no palpable masses, no abdominal bruits, no rebound and no rigidity. No flank tendernss EXTREMITIES:Extremit ies normal, No deformities, No skin discoloration, No edema . 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 At that time peg was placed but it has since been removed by the patient. Her mom notes that for 2 days she is refusing all intake She has been crying with bm for some time. I am going to send her to ER at this point and communicated this with Main ED It is unclear to me at this point if this is a gi process, her exam is not too concerning, but clearly there is something wrong acutely and she has stopped making urine due to dehydration Per mom she always loves to eat so this is sign something is quite wrong when refusing anything by mouth I would expect this will require admission In regards to oropharygeal dysphagia , this is may be more of a chronic issue. I do have concerns that over time (more content not included)... Normal [facility] Superficial Wound Cultureon 04-04-2023 Superficial Wound Culture ORGANISM: Methicillin Resis Staph Aureus (O:MRSA) Quantity of Growth Moderate Growth Aerobic DM Charge (PCMIC38) ----- SUSCEPTIBILITY ---- ORGANISM: O:MRSA ANTIBIOTIC INTERPRETATION DM Azithromycin S <2 Ceftaroline S <0.5 Ciprofloxacin S <1 Clindamycin S <0.25 Daptomycin S <0.5 Linezolid S 4 Oxacillin R >2 Penicillin R >2 Tetracycline S <4 Trimethoprim/Sulfame thoxazole S <0.5 Vancomycin S 1 S = SUSCEPTIBLE I = INTERMEDIATE R = RESISTANT BLANK = DATA NOT AVAILABLE, OR DRUG NOT ADVISABLE OR TESTED R* = RESISTANCE DUE TO EXTENDED SPECTRUM BETA-LACTAMASES ESBL = EXTENDED SPECTRUM BETA-LACTAMASE TFG = THYMIDINE-DEPENDENT STRAIN DAVEY = BETA-LACTAMASE POSITIVE IB = INDUCIBLE BETA-LACTAMASE. APPEARS IN PLACE OF 'S' WITH SPECIES KNOWN TO POSSESS INDUCIBLE BETA-LACTAMASES. POTENTIALLY THEY MAY BECOME RESISTANT TO ALL B-LACTAM DRUGS. PERFORMED BY: [place] [address] PATHOLOGIST HARMONICA MAKER EN MEEKS M.D. Normal [facility] Comment on above: Performed By: #### C [facility] #### [address] Sal 04-03-2023 BISI Telephone (GASTAV) CHERYL SCRUGGS ([id number]) 1985 F Date Time Provider Department 04/03/23 ANTIONETTE DORMAN During your visit today, we recorded the following information about you: Ronda Higginbotham Ma 04/03/2023 12:38 PM Signed Patient momQuin called and would like to change appointment to a virtual visit. She can be reached at [phone]. Mariah Interiano MD, PhD 04/03/2023 1:00 PM Signed I cannot easily change [place] appointments to virtual It does not work with the 20 patient schedule They could reschedule to 05/01 Antionette Haley RN 04/05/2023 9:47 AM Signed Called and offered Quin on voicemail 05/01/23 virtual visit, and explained that a virtual visit is not possible at [facility]. Instructed Quin to call the office if interested in virtual visit on 05/01/23. [phone]. Antionette Haley RN Allergies As of Date: 04/03/2023 Noted Allergy Reaction LACTOSE 1985 6 - Diarrhea 8 - GI Upset Date Reviewed: 03/28/2023 Reviewed by: Faustina Alejo MA - Fully Assessed Reason for Visit: Appointment [186] Prescriptions as of 04/05/2023 - OLANZapine (ZYPREXA) 15 mg tablet 1 tablet by ORAL/FEEDING TUBE route daily at bedtime. - acetaminophen (TYLENOL) 325 mg tablet 2 tablets by ORAL/FEEDING TUBE route every 4 hours as needed for pain. - aluminum-magnesium hydroxide-simethicon e (MAALOX,MYLANTA,MAG- AL PLUS) 200-200-20 mg/5 mL suspension Take 30 mL by mouth every 6 hours as needed. - lisinopril (ZESTRIL, PRINIVIL) 5 mg tablet 1 tablet by ORAL/FEEDING TUBE route once daily. - melatonin 3 mg tablet 1 tablet by ORAL/FEEDING TUBE route daily at bedtime. - ondansetron, PF, (ZOFRAN) 4 mg/2 mL soln Inject 4 mg intravenously every 6 hours as needed. - linaCLOtide (LINZESS) 290 mcg capsule Take by mouth once daily. - Sodium Fluoride, Dental Rinse, (PREVIDENT) 0.2 % soln by DENTAL route. Use every Sunday at bedtime. - montelukast (SINGULAIR) 10 mg tablet - sucralfate (CARAFATE) 100 mg/mL suspension Take 10 mL by mouth three times daily before meals. - docusate sodium (COLACE) 100 mg capsule Take 1 capsule by mouth three times daily. - loratadine (CLARITIN) 10 mg tablet Take 1 tablet by mouth once daily as needed for Cold/Allergy Symptoms (for allergy symptoms). - MULTIVITAMIN TAB Take one(1) tablet daily. 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 03/28/2023 Dysphagia following nontraumatic intracerebral *09/06/2022 S/P Stefanie fundoplication (with gastrostomy tub*09/07/2022 Malnutrition of mild degree (HCC) [E44.1] 09/07/2022 Secondary hypertension [I15.9] 09/08/2022 Hypomagnesemia [E83.42] 09/12/2022 Thrombocytopenia (HCC) [D69.6] 09/12/2022 09/18/2022 Hypokalemia [E87.6] 09/13/2022 Elevated LFTs [R79.89] 09/14/2022 Restlessness and agitation [R45.1] 09/15/2022 Encounter Status:Closed by ANTIONETTE HALEY RN on 04/05/23 [facility] CNOVon 03-28-2023 CNOV Office Visit (NECVS8) CHERYL SCRUGGS ([id number]) 1985 F Date Time Provider Department 03/28/23 4:00 PM DENISE LUCAS NECVS8 During your visit today, we recorded the following information about you: Temperature Pulse Respiration Blood pressure 97.2 degrees 78/minute 14/minute 121/76 Weight Height 36.3 kg 1.346 m Denise Lucas MD 03/28/2023 7:46 PM [facility] Established Visit CEREBROVASCULAR HISTORY Cheryl Scruggs is a 37 year old female with a 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 I spoke to the patient's parents Bobby and Quin via video visit on 12/28/22. She is here today accompanied by her parents. Per discharge summary dated 09/22/22: MARGARITA 09/04/2022 evening/night. Mother dropped her off at the detention, and she was able to ambulate on her own.On the morning of 09/05/2022, her LLE was noted to be weak. She was noticed to be limping. Later in the day, her LUE was noted to be weak as well. Taken to [facility] ED and found to have a R sided pontine hypodensity on CTH, concerning of IPH (ICH score 2, infratentorial + GCS). Transferred to [facility] ICU for further care. Mother denies patient had past Hx of known vasculopathy, uncontrolled BP, strokes or seizures. No use of AC or AP.Initial NIHSS was 19 significant for 2 for questions, 2 for commands, 4 for motor LUE, 4 for motor LLE, 2 for motor RLE, 3 for aphasia, 2 for dysarthria...Patient did not require coagulation reversal...Repeat CTH non contrast showed stable hemorrhage and CTA head and neck was done for vessel imaging showed no vascular abnormality to cause hemorrhage. MRI brain w/wo contrast was done under anesthesia and was significant for stable pontine hemorrhage with no underlying enhancing mass/lesion or ischemic stroke noted. Further vessel imaging was done with a cerebral angiogram showing no vascular malformation to explain hemorrhage. Etiology of hemorrhage was felt to be hypertensive vs possible cavernous malformation. Interval history: - Per parents, Cheryl seems to be doing well overall. She has regained function in her LUE and is ambulating without assistance. They are noticing some behavioral changes like her hitting her head. Unclear if this is associated with pain. She also has episodes of frequent R eye blinking. Eats a pureed diet, not on PEG as she removed it twice. Less episodes of tightening her lips. BP have when well controlled when checked at her extended care facility. Parents are not reporting any new neurologic symptoms. She is no longer on aspirin. Reason for Visit: cerebral hemorrhage Date of Last Event: 09/05/2022 Residual Deficits: Left-sided weakness Current Living Situation: Extended care MEDICATIONS Current Outpatient Medications Medication Sig OLANZapine (ZYPREXA) 15 mg tablet 1 tablet by ORAL/FEEDING TUBE route daily at bedtime. acetaminophen (TYLENOL) 325 mg tablet 2 tablets by ORAL/FEEDING TUBE route every 4 hours as needed for pain. aluminum-magnesium hydroxide-simethicon e (MAALOX,MYLANTA,MAG- AL PLUS) 200-200-20 mg/5 mL suspension Take 30 mL by mouth every 6 hours as needed. lisinopril (ZESTRIL, PRINIVIL) 5 mg tablet 1 tablet by ORAL/FEEDING TUBE route once daily. melatonin 3 mg tablet 1 tablet by ORAL/FEEDING TUBE route daily at bedtime. ondansetron, PF, (ZOFRAN) 4 mg/2 mL soln Inject 4 mg intravenously every 6 hours as needed. linaCLOtide (LINZESS) 290 mcg capsule Take by mouth once daily. Sodium Fluoride, Dental Rinse, (PREVIDENT) 0.2 % soln by DENTAL route. Use every Sunday at bedtime. montelukast (SINGULAIR) 10 mg tablet sucralfate (CARAFATE) 100 mg/mL suspension Take 10 mL by mouth three times daily before meals. docusate sodium (COLACE) 100 mg capsule Take 1 capsule by mouth three times daily. loratadine (CLARITIN) 10 mg tablet Take 1 tablet by mouth once daily as needed for Cold/Allergy Symptoms (for allergy symptoms). MULTIVITAMIN TAB Take one(1) tablet daily. No current facility-administere d medications for this visit. ALLERGIES Allergen Reactions Lactose Diarrhea, GI Upset EXAM BP 121/76 Pulse 78 Temp (Src) 97.2 (Temporal) Resp 14 Ht 4' 5 (1.35m) Wt 80 lb (36.3kg) SpO2 100% LMP 04/01/2011 BMI 20.03 kg/(m2). General: Sitting in chair and standing up and ambulating, short stature limited eye contact HEENT:Dysmorphic features with hypotelorism and micrognathia Lungs: Normal work of breathing in room air. Extremities: No edema, cyanosis, or clubbing. Neurological: Awake, limited eye contact, restless, non-verbal and not following commands, moving all extremities spontaneously, purposefully and antigravity, no facial asymmetry noted, gaze midline, no abnormal movement noted, normal tone, did no (more content not included)... Normal [facility] CBC AUTO DIFFon 01-17-2023 BASO # 0.0 103/ul Normal 0.0-0.1 [facility] Comment on above: Performed By: #### C BC #### [facility] [address] [place] [address] Dr. Hay Toledo Basophils/100 WBC (Bld) 0.4 % Normal 0.2-2.0 [facility] Comment on above: Performed By: #### C BC #### [facility] [address] [place] [address] Dr. Hay Toledo EO # 0.0 103/ul Normal 0.0-0.7 [facility] Comment on above: Performed By: #### C BC #### [facility] [address] [place] [address] Dr. Hay Toledo Eosinophils/100 WBC (Bld) 0.0 % Critically low 0.9-7.0 [facility] Comment on above: Performed By: #### C BC #### [facility] [address] [place] [address] Dr. Hay Toledo Erythrocyte distribution width (RBC) [Ratio] 13.1 % Normal 11.0-15.0 [facility] Comment on above: Performed By: #### C BC #### [facility] [address] [place] [address] Dr. Hay Toledo Hematocrit (Bld) [Volume fraction] 43.3 % Normal 36.0-48.0 [facility] Comment on above: Performed By: #### C BC #### [facility] [address] [place] [address] Dr. Hay Toledo Hemoglobin (Bld) [Mass/Vol] 14.2 g/dL Normal 12.0-16.0 [facility] Comment on above: Performed By: #### C BC #### [facility] [address] [place] [address] Dr. Hay Toledo IG # 0.02 10e3/ul Normal 0.00-0.03 [facility] Comment on above: Performed By: #### C BC #### [facility] [address] [place] [address] Dr. Hay Toledo IG % 0.3 % Normal 0.0-0.5 [facility] Comment on above: Performed By: #### C BC #### [facility] [address] [place] [address] Dr. Hay Toledo LYMPH # 1.3 103/ul Normal 1.2-3.8 [facility] Comment on above: Performed By: #### C BC #### [facility] [address] [place] [address] Dr. Hay Toledo Lymphocytes/100 WBC (Bld) 18.9 % Critically low 20.5-60.0 [facility] Comment on above: Performed By: #### C BC #### [facility] [address] [place] [address] Dr. Hay Toledo MANUAL DIFF REQ NO Normal [facility] Comment on above: Performed By: #### C BC #### [facility] [address] [place] [address] Dr. Hay Toledo MCH (RBC) [Entitic mass] 27.5 pg Normal 26.7-34.0 [facility] Comment on above: Performed By: #### C BC #### [facility] [address] [place] [address] Dr. Hay Toledo MCHC (RBC) [Mass/Vol] 32.8 g/dL Normal 29.9-35.2 [facility] Comment on above: Performed By: #### C BC #### [facility] [address] [place] [address] Dr. Hay Toledo MCV (RBC) [Entitic vol] 83.9 fL Normal 81.0-99.0 [facility] Comment on above: Performed By: #### C BC #### [facility] [address] [place] [address] Dr. Hay Toledo MONO # 0.4 103/ul Normal 0.3-0.8 [facility] Comment on above: Performed By: #### C BC #### [facility] [address] [place] [address] Dr. Hay Toledo Monocytes/100 WBC (Bld) 6.5 % Normal 1.7-12.0 [facility] Comment on above: Performed By: #### C BC #### [facility] [address] [place] [address] Dr. Hay Toledo NEUT # 5.0 103/ul Normal 1.4-6.5 [facility] Comment on above: Performed By: #### C BC #### [facility] [address] [place] [address] Dr. Hay Toledo Neutrophils/100 WBC (Bld) 73.9 % Normal 43.0-75.0 [facility] Comment on above: Performed By: #### C BC #### [facility] [address] [place] [address] Dr. Hay Toledo Platelet mean volume (Bld) [Entitic vol] 10.3 fL Normal 9.5-13.5 [facility] Comment on above: Performed By: #### C BC #### [facility] [address] [place] [address] Dr. Hay Toledo PLT 168 103/ul Normal 150-450 [facility] Comment on above: Performed By: #### C BC #### [facility] [address] [place] [address] Dr. Hay Toledo RBC 5.16 106/ul Normal 4.20-5.40 [facility] Comment on above: Performed By: #### C BC #### [facility] [address] [place] [address] Dr. Hay Toledo WBC 6.8 103/ul Normal 4.0-11.0 [facility] Comment on above: Performed By: #### C BC #### [facility] [address] [place] [address] Dr. Hay Toledo PROF 14(COMP METB)on 023 Albumin [Mass/Vol] 4.0 g/dL Normal 3.4-5.0 [facility] Comment on above: Performed By: #### T SH, CMP #### [facility] [address] [place] [address] Dr. Hay Toledo Albumin/Globulin [Mass ratio] 1.1 {ratio} Normal [facility] Comment on above: Performed By: #### T SH, CMP #### [facility] [address] [place] [address] Dr. Hay Toledo ALP [Catalytic activity/Vol] 124 U/L Critically high 46-116 [facility] Comment on above: Performed By: #### T SH, CMP #### [facility] [address] [place] [address] Dr. Hay Toledo ALT [Catalytic activity/Vol] 52 U/L Normal 14-59 [facility] Comment on above: Performed By: #### T SH, CMP #### [facility] [address] [place] [address] Dr. Hay Toledo Anion gap [Moles/Vol] 14.4 mmol/L Normal [facility] Comment on above: Performed By: #### T SH, CMP #### [facility] [address] [place] [address] Dr. Hay Toledo AST [Catalytic activity/Vol] 36 U/L Normal 15-37 [facility] Comment on above: Performed By: #### T SH, CMP #### [facility] [address] [address] [address] Hay Toledo Bilirubin [Mass/Vol] 0.4 mg/dL Normal 0.2-1.0 [facility] Comment on above: Performed By: #### T SH, CMP #### [facility] [address] [address] [address] Hay Toledo Calcium [Mass/Vol] 9.5 mg/dL Normal 8.5-10.1 [facility] Comment on above: Performed By: #### T SH, CMP #### [facility] [address] [address] [address] Hay Toledo Chloride [Moles/Vol] 105 mmol/L Normal 98-107 [facility] Comment on above: Performed By: #### T SH, CMP #### [facility] [address] [place] [address] Dr. Hay Toledo CO2 [Moles/Vol] 27.9 mmol/L Normal 21.0-32.0 [facility] Comment on above: Performed By: #### T SH, CMP #### [facility] [address] [place] [address] Dr. Hay Toledo Creatinine [Mass/Vol] 0.53 mg/dL Critically low 0.55-1.02 [facility] Comment on above: Performed By: #### T SH, CMP #### [facility] [address] [place] [address] Dr. Hay Toledo EGFR-AF JAPANESE >60 Normal >=60 [facility] Comment on above: Performed By: #### T SH, CMP #### [facility] [address] [place] [address] Dr. Hay Toledo EGFR-NON AF JAPANESE >60 Normal >=60 [facility] Comment on above: Performed By: #### T SH, CMP #### [facility] [address] [place] [address] Dr. Hay Toledo Globulin (S) [Mass/Vol] 3.5 g/dL Normal [facility] Comment on above: Performed By: #### T SH, CMP #### [facility] [address] [address] [address] Hay Toledo Glucose [Mass/Vol] 91 mg/dL Normal 74-106 [facility] Comment on above: Performed By: #### T SH, CMP #### [facility] [address] [address] [address] Hay Toledo Potassium [Moles/Vol] 4.3 mmol/L Normal 3.5-5.1 [facility] Comment on above: Performed By: #### T SH, CMP #### [facility] [address] [place] [address] Dr. Hay Toledo Protein [Mass/Vol] 7.5 g/dL Normal 6.4-8.2 [facility] Comment on above: Performed By: #### T SH, CMP #### [facility] [address] [place] [address] Dr. Hay Toledo Sodium [Moles/Vol] 143 mmol/L Normal 136-145 [facility] Comment on above: Performed By: #### T SH, CMP #### [facility] [address] [place] [address] Dr. Hay Toledo Urea nitrogen [Mass/Vol] 12.0 mg/dL Normal 7.0-18.0 [facility] Comment on above: Performed By: #### T SH, CMP #### [facility] [address] [place] [address] Dr. Hay Toledo Urea nitrogen/Creatinine [Mass ratio] 22.6 mg/mg Normal [facility] Comment on above: Performed By: #### T SH, CMP #### [facility] [address] [place] [address] Dr. Hay Toledo TSHon 01-17-2023 TSH 0.776 uIU/mL Normal 0.358-3.740 [facility] Comment on above: Performed By: #### T SH, CMP #### [facility] [address] [place] [address] Dr. Hay Huang 01-05-2023 CNPN Telephone (NEURST) CHERYL SCRUGGS ([id number]) 1985 F Date Time Provider Department 01/05/23 ANUP HERNANDEZ During your visit today, we recorded the following information about you: Anup Hernandez 01/05/2023 10:27 AM Signed MODIFIED LADONNA SCORE POST-DISCHARGE Telephone Visit Patient Name: Cheryl Scruggs Today's date: January 05, 2023 Date of discharge: September 22, 2022 Person giving information: Chart Review Contact information: N/A Contact attempt: #3 Patient discharge location: Acute Rehab Patient current location: Home Presentation to ED or readmission after discharge: Yes Modified [place] Score: 90 days post discharge: 2 = Slight disability. Unable to carry out all previous activities but able to look after own affairs w/o assistance. Mortality: No Signature: Anup Hernandez January 05, 2023 10:27 AM Allergies As of Date: 01/05/2023 Noted Allergy Reaction LACTOSE 1985 6 - Diarrhea 8 - GI Upset Date Reviewed: 12/12/2022 Reviewed by: Ava Wade RN - Fully Assessed Reason for Visit: Outcomes [4777] Cmt: 90 day mRS Prescriptions as of 01/05/2023 - OLANZapine (ZYPREXA) 15 mg tablet 1 tablet by ORAL/FEEDING TUBE route daily at bedtime. - acetaminophen (TYLENOL) 325 mg tablet 2 tablets by ORAL/FEEDING TUBE route every 4 hours as needed for pain. - aluminum-magnesium hydroxide-simethicon e (MAALOX,MYLANTA,MAG- [place] PLUS) 200-200-20 mg/5 mL suspension Take 30 mL by mouth every 6 hours as needed. - lisinopril (ZESTRIL, PRINIVIL) 5 mg tablet 1 tablet by ORAL/FEEDING TUBE route once daily. - melatonin 3 mg tablet 1 tablet by ORAL/FEEDING TUBE route daily at bedtime. - ondansetron, PF, (ZOFRAN) 4 mg/2 mL soln Inject 4 mg intravenously every 6 hours as needed. - linaCLOtide (LINZESS) 290 mcg capsule Take by mouth once daily. - Sodium Fluoride, Dental Rinse, (PREVIDENT) 0.2 % soln by DENTAL route. Use every Sunday at bedtime. - montelukast (SINGULAIR) 10 mg tablet - sucralfate (CARAFATE) 100 mg/mL suspension Take 10 mL by mouth three times daily before meals. - docusate sodium (COLACE) 100 mg capsule Take 1 capsule by mouth three times daily. - loratadine (CLARITIN) 10 mg tablet Take 1 tablet by mouth once daily as needed for Cold/Allergy Symptoms (for allergy symptoms). - MULTIVITAMIN TAB Take one(1) tablet daily. 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 Dysphagia following nontraumatic intracerebral *09/06/2022 S/P Stefanie fundoplication (with gastrostomy tub*09/07/2022 Malnutrition of mild degree (HCC) [E44.1] 09/07/2022 Secondary hypertension [I15.9] 09/08/2022 Hypomagnesemia [E83.42] 09/12/2022 Thrombocytopenia (HCC) [D69.6] 09/12/2022 09/18/2022 Hypokalemia [E87.6] 09/13/2022 Elevated LFTs [R79.89] 09/14/2022 Restlessness and agitation [R45.1] 09/15/2022 Encounter Status:Closed by ANUP HERNANDEZ on 01/05/23 Normal [facility] CNPNon 01-03-2023 CNPN Telephone (NECVS8) CHERYL SCRUGGS ([id number]) 1985 F Date Time Provider Department 01/03/23 DENISE LUCAS NECVS8 During your visit today, we recorded the following information about you: Dorina Talbert [facility] 01/03/2023 1:30 PM Signed CV PHONE Name of caller : Braydon Relationship to patient : [facility] If not self Will need patient permission to release results or disclose health information with called documented in . Patient identified by Name and Date of . ( Cheryl Scruggs, 1985). Yes Number to return call [phone] Reason for Call: Patient Question/Update: Braydon is calling to see if a speech evaluation is needed and if so, what is she to be checking her for. Not seeing order, just comment in office note. Please call. Thank you calling [facility]. You will receive a return call within 48 hours ( or 2 business days if close to the weekend). If you feel that this is an urgent issue and needs immediate attention, it is recommended that you contact your primary care provider office or proceed to your nearest Urgent Care Center of Emergency Room ED for evaluation/treatment . Alis Guzman RN 01/03/2023 2:39 PM Signed Returned call to Braydon. No answer, [facility] re: discussed with Dr. Lucas and she recommended that because the patient's mother stated she is having episodes of tightening her lips and still taking in by mouth, it would be to re-evaluate for swallowing safety. Left call back number if needs further information or an order. Alis Guzman RN January 03, 2023 2:37 PM Allergies As of Date: 01/03/2023 Noted Allergy Reaction LACTOSE 1985 6 - Diarrhea 8 - GI Upset Date Reviewed: 12/12/2022 Reviewed by: Ava Wade RN - Fully Assessed Reason for Visit: Question [9107] Prescriptions as of 01/03/2023 - OLANZapine (ZYPREXA) 15 mg tablet 1 tablet by ORAL/FEEDING TUBE route daily at bedtime. - acetaminophen (TYLENOL) 325 mg tablet 2 tablets by ORAL/FEEDING TUBE route every 4 hours as needed for pain. - aluminum-magnesium hydroxide-simethicon e (MAALOX,MYLANTA,MAG- AL PLUS) 200-200-20 mg/5 mL suspension Take 30 mL by mouth every 6 hours as needed. - lisinopril (ZESTRIL, PRINIVIL) 5 mg tablet 1 tablet by ORAL/FEEDING TUBE route once daily. - melatonin 3 mg tablet 1 tablet by ORAL/FEEDING TUBE route daily at bedtime. - ondansetron, PF, (ZOFRAN) 4 mg/2 mL soln Inject 4 mg intravenously every 6 hours as needed. - linaCLOtide (LINZESS) 290 mcg capsule Take by mouth once daily. - Sodium Fluoride, Dental Rinse, (PREVIDENT) 0.2 % soln by DENTAL route. Use every Sunday at bedtime. - montelukast (SINGULAIR) 10 mg tablet - sucralfate (CARAFATE) 100 mg/mL suspension Take 10 mL by mouth three times daily before meals. - docusate sodium (COLACE) 100 mg capsule Take 1 capsule by mouth three times daily. - loratadine (CLARITIN) 10 mg tablet Take 1 tablet by mouth once daily as needed for Cold/Allergy Symptoms (for allergy symptoms). - MULTIVITAMIN TAB Take one(1) tablet daily. 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 Author Type: Physician Type: Anesthesia Postprocedure Evaluation Filed: 12/12/2022 2:44 PM Note Text: POST ANESTHESIA EVALUATION NOTE : 1985 Procedure Summary Date: 12/12/22 Room / Location: [address] ANESTHESIA ONLY Anesthesia Start: 1322 Anesthesia Stop: 1438 Procedure: MRI BRAIN W/O CONTRAST MATERIAL FOLLOWED BY CONTRAST MATERIAL(S) AND FURTHER SEQUENCES Diagnosis: 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) (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) [I61.1]) Surgeons: Bella Sanchez MD Responsible Provider: Flor Mckee DO Anesthesia Type: general ASA Status: 3 Anesthesia Type: general Last Vitals Vitals Value Taken Time BP 126/70 12/12/22 1422 Temp See emr 12/12/22 1443 Pulse 80 12/12/22 1420 Resp 18 12/12/22 1424 SpO2 99 % 12/12/22 1424 Post Anesthesia Patient Status Patient Evaluation: PACU. PACU/ICU Patient Condition: stable. Neurological Status: aware and responsive. Pulmonary Status: breathing comfortably on room air Airway Control: returned to baseline unsupported. Cardiovascular Status: stable. Pain Management: clinically adequate Postoperative Hydration: acceptable. Intraoperative Events: no significant anesthesia events Post Operative Nausea/Vomiting Status: no significant post operative nausea or vomiting Recommendation: continue current plan of care. Anesthesia Observations No Documentation SIGNATURE: Flor Mckee DO PATIENT NAME: Cheryl Scruggs DATE: December 12, 2022 TIME: 2:43 PM CSN: [id number] Normal [facility] ANES PRE-OPon 12-12-2022 ANES PRE-OP HNO ID: [id number] Author: Flor Mckee DO Service: ? Author Type: Physician Type: Anesthesia Preprocedure Evaluation Filed: 12/12/2022 10:55 AM Note Text: ANESTHESIOLOGY DAY OF SURGERY NOTE : 1985 Procedure Information Date/Time: 12/12/22 1115 Procedure: MRI BRAIN W/O CONTRAST MATERIAL FOLLOWED BY CONTRAST MATERIAL(S) AND FURTHER SEQUENCES [facility]: Bella Sanchez MD Estimated body mass index is 18.77 kg/m? as calculated from the following: Height as of 10/24/22: 134.6 cm (4' 5 ). Weight as of 10/24/22: 34 kg (75 lb). 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 Tracheostomy tube not present Mallampati: II. TM distance: >3 FB. Neck ROM: full ROM without neurological symptoms. Mouth opening: adequate. Short neck: no. Thick neck: no Additional comments: Small mouth but adequate. DENTAL Dental findings: missing tooth/teeth. II - ANESTHESIA PLAN ASA Score: 3 Anesthetic Plan: general Airway type: LMA NPO Status: adequate Beta Radha Monitoring Plan Monitoring plan: standard ASA. Post Procedure Analgesic Plan Postoperative analgesic plan: per surgical service. Informed Consent Anesthetic risks, benefits, alternatives, personnel and consent discussed: yes. Patient / Responsible Republican agrees to proceed: yes Patient / Surrogate agrees to blood products: Yes Significant changes in the patient condition since the History and Physical, not otherwise documented in primary service progress note: no. Potential Anesthesia issues that may suggest increased risk of complications or contraindication to planned procedure: none. No vitals data found for the desired time range. No current facility-administere d medications on file as of . Outpatient Medications as of Medication Sig - OLANZapine (ZYPREXA) 15 mg tablet 1 tablet by ORAL/FEEDING TUBE route daily at bedtime. - acetaminophen (TYLENOL) 325 mg tablet 2 tablets by ORAL/FEEDING TUBE route every 4 hours as needed for pain. - aluminum-magnesium hydroxide-simethicon e (MAALOX,MYLANTA,MAG- AL PLUS) 200-200-20 mg/5 mL suspension Take 30 mL by mouth every 6 hours as needed. - lisinopril (ZESTRIL, PRINIVIL) 5 mg tablet 1 tablet by ORAL/FEEDING TUBE route once daily. - melatonin 3 mg tablet 1 tablet by ORAL/FEEDING TUBE route daily at bedtime. - ondansetron, PF, (ZOFRAN) 4 mg/2 mL soln Inject 4 mg intravenously every 6 hours as needed. - linaCLOtide (LINZESS) 290 mcg capsule Take by mouth once daily. - Sodium Fluoride, Dental Rinse, (PREVIDENT) 0.2 % soln by DENTAL route. Use every Sunday at bedtime. - montelukast (SINGULAIR) 10 mg tablet - sucralfate (CARAFATE) 100 mg/mL suspension Take 10 mL by mouth three times daily before meals. - docusate sodium (COLACE) 100 mg capsule Take 1 capsule by mouth three times daily. - loratadine (CLARITIN) 10 mg tablet Take 1 tablet by mouth once daily as needed for Cold/Allergy Symptoms (for allergy symptoms). - MULTIVITAMIN TAB Take one(1) tablet daily. I have interviewed and examined the patient. I have reviewed the medical record and/or the pre-anesthesia evaluation, pertinent labs, and test results. This contains updated information obtained within 48 hours of Surgery/Procedure. SIGNATURE: Flor Mckee DO PATIENT NAME: Cheryl Scruggs DATE: December 12, 2022 TIME: 10:12 AM CSN: [id number] [facility] MRI BRAIN WO/W IVCONon 12-12 MRI BRAIN WO/W IVCON * * *Final Report* * * DATE OF EXAM: Dec 12 2022 2:24PM QBM 0295 - MRI BRAIN WO/W IVCON / PROCEDURE REASON: 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) * * * * Physician Interpretation * * * * EXAMINATION: MRI BRAIN WO/W IVCON CLINICAL HISTORY: Right-sided nontraumatic intracerebral hemorrhage of brainstem. TECHNIQUE: Routine brain MRI protocol without and with contrast including diffusion and gradient echo images. MQ: [id number] Contrast: 7 mL Dotarem IV COMPARISON: MRI brain 09/07/2022. CTA head and neck 09/05/2022. Safe Practice: Patient identification confirmed: Confirmed Imaging procedure: MR brain Sign in Communication with MRI/faucet polisher: 09:52 Body Part: Brain Laterality: N/A Imaging Protocol: MRI brain Review of MR Safety Screening Form: Yes, no concerns eGFR: N/A Radiation Safety Practices Employed: N/A Time out: Confirmation of patient identification, body part, imaging protocol and review of safety issues with food technologist. Sign Out Discussion: 14:16 Discussion: Images were reviewed upon study completion and felt to be satisfactory. RESULT: Acute Change: There is no evidence of restricted diffusion to suggest an acute infarct. Hemorrhage: Redemonstration of confluent susceptibility artifact present in the right aspect of the ventral amaris, compatible with remote hemorrhage. No associated abnormal mass or enhancement. No new areas of hemorrhage. Mass Lesion/ Mass Effect: No evidence of an intracranial mass or extra-axial fluid collection. No abnormal parenchymal or leptomeningeal enhancement is noted following contrast administration. No significant mass effect. Chronic Change: The white matter is within normal limits of signal intensity for age. 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 The brain parenchyma is otherwise within normal limits of signal intensity and morphology. Ventricles: Normal caliber and morphology. Skull Base: Hypothalamic and pituitary region are grossly normal. Craniocervical junction is normal. No significant marrow replacement process. Vasculature: Major intracranial arterial structures, and dural venous sinuses show typical flow void, suggesting patency by spin echo criteria. Other: Likely retention cyst in the right maxillary sinus. Moderate left maxillary sinus mucosal thickening. Mild ethmoid sinus mucosal thickening. Fluid in the left mastoid air cells. The orbits and extracranial soft tissues are unremarkable. 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 No new hemorrhage. Interval improvement of mild confluent T2/FLAIR hyperintensity adjacent to the remote right pontine hemorrhage, suggesting improved edema. Fluid in the left mastoid air cells. Defensive Fire Control Systems Operator: PSCB Transcribe Date/Time: Dec 12 2022 2:27P Dictated by : JHOANA ELLIOTT, DO This examination was interpreted and the report reviewed and electronically signed by: ALBERTO AVILES MD on Dec 12 2022 3:01PM EST [id number] [facility] Tele[facility] (MRIQ) CHERYL SCRUGGS ([id number]) 1985 F Date Time Provider Department 12/01/22 RAYNA WEISS During your visit today, we recorded the following information about you: Rayna Weiss RN 12/01/2022 11:41 AM Signed Radiology Service Pre Anesthesia Telephone Call PATIENT NAME: Cheryl Scruggs DATE OF CALL: December 01, 2022 TIME: 11:25 AM PATIENT TYPE: Adult patient 1. Has the patient ever had an MRI scan before? Yes, can't hold still 2. Does the patient have any implanted devices? no If yes, notify patient that additional follow up will be required., It is required that the patient have a current history and physical within 30 days of the scheduled appointment., 3. Has the patient had a history and physical within this 30 day period? Yes. Make sure have copy is faxed [facility] if not [facility] provider., 4. Diet instructions given. Yes. No solids for 8 hours prior to exam. Patient may take medications with sips of water., 5. Has the patient had lab work within the last 6 months? Yes, 6. Is the patient diabetic? No, 7. Is the patient taking pain medication? No, 8. Parking and Check-in instructions given? Yes, 9. Does the patient have a feeder driver to take them home? Yes, 10. Spoke with patient: No, spoke with JUVE Escalante [facility], and All of the patient's questions were addressed and answered. Patient verbalized understanding. Call back number provided for any future questions. Left VM with mom and dad regarding appointment time and location. SIGNED BY: Rayna Weiss RN December 01, 2022 11:25 AM Allergies As of Date: 12/01/2022 (No Known Allergies) Date Reviewed: 11/28/2022 Reviewed by: Keith Mchugh MD - Fully Assessed Reason for Visit: Radiology Pre Procedure Instructions [1506] Prescriptions as of 12/01/2022 - OLANZapine (ZYPREXA) 15 mg tablet 1 tablet by ORAL/FEEDING TUBE route daily at bedtime. - acetaminophen (TYLENOL) 325 mg tablet 2 tablets by ORAL/FEEDING TUBE route every 4 hours as needed for pain. - aluminum-magnesium hydroxide-simethicon e (MAALOX,MYLANTA,MAG- AL PLUS) 200-200-20 mg/5 mL suspension Take 30 mL by mouth every 6 hours as needed. - lisinopril (ZESTRIL, PRINIVIL) 5 mg tablet 1 tablet by ORAL/FEEDING TUBE route once daily. - melatonin 3 mg tablet 1 tablet by ORAL/FEEDING TUBE route daily at bedtime. - ondansetron, PF, (ZOFRAN) 4 mg/2 mL soln Inject 4 mg intravenously every 6 hours as needed. - linaCLOtide (LINZESS) 290 mcg capsule Take by mouth once daily. - Sodium Fluoride, Dental Rinse, (PREVIDENT) 0.2 % soln by DENTAL route. Use every Sunday at bedtime. - montelukast (SINGULAIR) 10 mg tablet - sucralfate (CARAFATE) 100 mg/mL suspension Take 10 mL by mouth three times daily before meals. - docusate sodium (COLACE) 100 mg capsule Take 1 capsule by mouth three times daily. - loratadine (CLARITIN) 10 mg tablet Take 1 tablet by mouth once daily as needed for Cold/Allergy Symptoms (for allergy symptoms). - MULTIVITAMIN TAB Take one(1) tablet daily. 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 Dysphagia following nontraumatic intracerebral *09/06/2022 S/P Stefanie fundoplication (with gastrostomy tub*09/07/2022 Malnutrition of mild degree (HCC) [E44.1] 09/07/2022 Secondary hypertension [I15.9] 09/08/2022 Hypomagnesemia [E83.42] 09/12/2022 Thrombocytopenia (HCC) [D69.6] 09/12/2022 09/18/2022 Hypokalemia [E87.6] 09/13/2022 Elevated LFTs [R79.89] 09/14/2022 Restlessness and agitation [R45.1] 09/15/2022 Encounter Status:Closed by RAYNA WEISS on 12/01/22 [facility] Sal 11-27-2022 CNPN Telephone ([place]) CHERYL SCRUGGS ([id number]) 1985 F Date Time Provider Department 11/27/22 LEVAR VARMA During your visit today, we recorded the following information about you: Levar Varma RN 11/27/2022 2:21 PM Signed [facility] COORDINATION TELEPHONE ENCOUNTER Chief complaint AND duration :Peg tube pulled out by patient. Sent to local facility to have tube reinserted. Since then patient has pulled out again. Type of procedure: EGD with 20 Fr PEG - inpatient with Dr. Mchugh in September of 2022. Nursing assessment (subjective/objectiv e) Per Ava at [facility] ([phone]). Peg out and site is clean and covered with Telfa. There is a nickel size yellow drainage, but otherwise no signs or symptoms of infection. Patient is eating and drinking fine. Concerned that stoma is not closing/ healing and requesting your opinion. Recommendation: Virtual appointment Levar Varma RN November 27, 2022 2:21 PM Allergies As of Date: 11/27/2022 (No Known Allergies) Date Reviewed: 10/24/2022 Reviewed by: Martínez Aponte RN - Fully Assessed Reason for Visit: Returning Patient's Call [408] Prescriptions as of 11/27/2022 - Sennosides (SENNA) 8.6 mg cap Take 1 capsule by mouth as needed. - OLANZapine (ZYPREXA) 15 mg tablet 1 tablet by ORAL/FEEDING TUBE route daily at bedtime. - acetaminophen (TYLENOL) 325 mg tablet 2 tablets by ORAL/FEEDING TUBE route every 4 hours as needed for pain. - aluminum-magnesium hydroxide-simethicon e (MAALOX,MYLANTA,MAG- AL PLUS) 200-200-20 mg/5 mL suspension Take 30 mL by mouth every 6 hours as needed. - heparin 5,000 unit/mL injection Inject 0.5 mL subcutaneously every 12 hours. - lisinopril (ZESTRIL, PRINIVIL) 5 mg tablet 1 tablet by ORAL/FEEDING TUBE route once daily. - melatonin 3 mg tablet 1 tablet by ORAL/FEEDING TUBE route daily at bedtime. - ondansetron, PF, (ZOFRAN) 4 mg/2 mL soln Inject 4 mg intravenously every 6 hours as needed. - linaCLOtide (LINZESS) 290 mcg capsule Take by mouth once daily. - Sodium Fluoride, Dental Rinse, (PREVIDENT) 0.2 % soln by DENTAL route. Use every Sunday at bedtime. - montelukast (SINGULAIR) 10 mg tablet - sucralfate (CARAFATE) 100 mg/mL suspension Take 10 mL by mouth three times daily before meals. - docusate sodium (COLACE) 100 mg capsule Take 1 capsule by mouth three times daily. - loratadine (CLARITIN) 10 mg tablet Take 1 tablet by mouth once daily as needed for Cold/Allergy Symptoms (for allergy symptoms). - MULTIVITAMIN TAB Take one(1) tablet daily. 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 Dysphagia following nontraumatic intracerebral *09/06/2022 S/P Stefanie fundoplication (with gastrostomy tub*09/07/2022 Malnutrition of mild degree (HCC) [E44.1] 09/07/2022 Secondary hypertension [I15.9] 09/08/2022 Hypomagnesemia [E83.42] 09/12/2022 Thrombocytopenia (HCC) [D69.6] 09/12/2022 09/18/2022 Hypokalemia [E87.6] 09/13/2022 Elevated LFTs [R79.89] 09/14/2022 Restlessness and agitation [R45.1] 09/15/2022 Encounter Status:Closed by LEVAR VARMA on 11/27/22 [facility] Sal 11-24-2022 BISI Telephone (MRIQ) CHERYL SCRUGGS ([id number]) 1985 F Date Time Provider Department 11/24/22 AVA WADEQ During your visit today, we recorded the following information about you: Ava Wade RN 11/24/2022 5:49 PM Signed 11/24/22 @ 0539 Return call back to Nursing staff at [facility] regarding the Anesthesia procedural instructions Jammie Wade RN Allergies As of Date: 11/24/2022 (No Known Allergies) Date Reviewed: 10/24/2022 Reviewed by: Martínez Aponte RN - Fully Assessed Reason for Visit: Radiology Pre Procedure Instructions [1506] Prescriptions as of 11/24/2022 - Sennosides (SENNA) 8.6 mg cap Take 1 capsule by mouth as needed. - OLANZapine (ZYPREXA) 15 mg tablet 1 tablet by ORAL/FEEDING TUBE route daily at bedtime. - acetaminophen (TYLENOL) 325 mg tablet 2 tablets by ORAL/FEEDING TUBE route every 4 hours as needed for pain. - aluminum-magnesium hydroxide-simethicon e (MAALOX,MYLANTA,MAG- AL PLUS) 200-200-20 mg/5 mL suspension Take 30 mL by mouth every 6 hours as needed. - heparin 5,000 unit/mL injection Inject 0.5 mL subcutaneously every 12 hours. - lisinopril (ZESTRIL, PRINIVIL) 5 mg tablet 1 tablet by ORAL/FEEDING TUBE route once daily. - melatonin 3 mg tablet 1 tablet by ORAL/FEEDING TUBE route daily at bedtime. - ondansetron, PF, (ZOFRAN) 4 mg/2 mL soln Inject 4 mg intravenously every 6 hours as needed. - linaCLOtide (LINZESS) 290 mcg capsule Take by mouth once daily. - Sodium Fluoride, Dental Rinse, (PREVIDENT) 0.2 % soln by DENTAL route. Use every Sunday at bedtime. - montelukast (SINGULAIR) 10 mg tablet - sucralfate (CARAFATE) 100 mg/mL suspension Take 10 mL by mouth three times daily before meals. - docusate sodium (COLACE) 100 mg capsule Take 1 capsule by mouth three times daily. - loratadine (CLARITIN) 10 mg tablet Take 1 tablet by mouth once daily as needed for Cold/Allergy Symptoms (for allergy symptoms). - MULTIVITAMIN TAB Take one(1) tablet daily. 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 Dysphagia following nontraumatic intracerebral *09/06/2022 S/P Stefanie fundoplication (with gastrostomy tub*09/07/2022 Malnutrition of mild degree (HCC) [E44.1] 09/07/2022 Secondary hypertension [I15.9] 09/08/2022 Hypomagnesemia [E83.42] 09/12/2022 Thrombocytopenia (HCC) [D69.6] 09/12/2022 09/18/2022 Hypokalemia [E87.6] 09/13/2022 Elevated LFTs [R79.89] 09/14/2022 Restlessness and agitation [R45.1] 09/15/2022 Encounter Status:Closed by AVA WADE on 11/24/22 [facility] Sal 11-23-2022 ODALYSN Telephone (MRIQ) CHERYL SCRUGGS ([id number]) 1985 F Date Time Provider Department 11/23/22 AVA WADE MRIQ During your visit today, we recorded the following information about you: Ava Wade RN 11/23/2022 4:29 PM Signed 11/23/22 @ 1625 A message was left on [facility] to return call for procedural instructions, our contact # was provided Jammie Wade RN Allergies As of Date: 11/23/2022 (No Known Allergies) Date Reviewed: 10/24/2022 Reviewed by: Martínez Aponte RN - Fully Assessed Reason for Visit: Radiology Pre Procedure Instructions [1506] Prescriptions as of 11/23/2022 - Sennosides (SENNA) 8.6 mg cap Take 1 capsule by mouth as needed. - OLANZapine (ZYPREXA) 15 mg tablet 1 tablet by ORAL/FEEDING TUBE route daily at bedtime. - acetaminophen (TYLENOL) 325 mg tablet 2 tablets by ORAL/FEEDING TUBE route every 4 hours as needed for pain. - aluminum-magnesium hydroxide-simethicon e (MAALOX,MYLANTA,MAG- AL PLUS) 200-200-20 mg/5 mL suspension Take 30 mL by mouth every 6 hours as needed. - heparin 5,000 unit/mL injection Inject 0.5 mL subcutaneously every 12 hours. - lisinopril (ZESTRIL, PRINIVIL) 5 mg tablet 1 tablet by ORAL/FEEDING TUBE route once daily. - melatonin 3 mg tablet 1 tablet by ORAL/FEEDING TUBE route daily at bedtime. - ondansetron, PF, (ZOFRAN) 4 mg/2 mL soln Inject 4 mg intravenously every 6 hours as needed. - linaCLOtide (LINZESS) 290 mcg capsule Take by mouth once daily. - Sodium Fluoride, Dental Rinse, (PREVIDENT) 0.2 % soln by DENTAL route. Use every Sunday at bedtime. - montelukast (SINGULAIR) 10 mg tablet - sucralfate (CARAFATE) 100 mg/mL suspension Take 10 mL by mouth three times daily before meals. - docusate sodium (COLACE) 100 mg capsule Take 1 capsule by mouth three times daily. - loratadine (CLARITIN) 10 mg tablet Take 1 tablet by mouth once daily as needed for Cold/Allergy Symptoms (for allergy symptoms). - MULTIVITAMIN TAB Take one(1) tablet daily. 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 Dysphagia following nontraumatic intracerebral *09/06/2022 S/P Stefanie fundoplication (with gastrostomy tub*09/07/2022 Malnutrition of mild degree (HCC) [E44.1] 09/07/2022 Secondary hypertension [I15.9] 09/08/2022 Hypomagnesemia [E83.42] 09/12/2022 Thrombocytopenia (HCC) [D69.6] 09/12/2022 09/18/2022 Hypokalemia [E87.6] 09/13/2022 Elevated LFTs [R79.89] 09/14/2022 Restlessness and agitation [R45.1] 09/15/2022 Encounter Status:Closed by AVA WADE on 11/23/22 [facility] 11-15-2022 L Specimen: [id number] Received: 11/16/221154 Status: POORNIMA Quigley Num: [id number] Spec Type: Surgical Subm Dr: Stephane House MD Tissues: A Skin-Other than Cyst, tag, debridement or plastic repair (POSTERIOR SCALP) Procedures: Devi FRY/Micro L4 Age/ Patient Sex Location Account Attending Physician Cheryl Scruggs 37/F CT [id number] Stephane House MD SPEC NUM: [id number] RECD: 11/16/22 STATUS: POORNIMA QUIGLEY NUM: [id number] RAMILA: 11/15/22[facility] DR: Stephane House MD ENTERED: 11/16/[address] [facility] [address]: TEODORO TYPE: Surgical DEPT: S ORDERED: LISANDRA Gross/Micro L4 ORDERED: Devi FRY/Micro L4 Pathological Diagnosis Skin lesion, posterior scalp, shave biopsy: - Consistent with ruptured epidermal inclusion cyst with acute inflammation. - See Comment. Comment: The diagnostic interpretation is limited due to the nature of superficial specimen. Recommend complete excise of skin lesion for further evaluation if clinically indicated. Clinical Information Nonhealing lesion, primary biopsy, D 49.2 neoplasm of unspecified behavior of bone, soft tissue and skin Gross Description Received in formalin labeled with the patient's name, number and posterior scalp is a 1.2 x 1.0 x 0.1 cm lucio white, nodular, hair bearing skin which is inked and sectioned. Entirely submitted in one cassette labeled A1. Microscopic Description One glass slide with H E stained material has been examined. The microscopic findings support the above pathologic diagnosis. Specimen: [id number] Received: 11/16/22 Status: POORNIMA Srmissy Num: [id number] Spec Type: Surgical Subm Dr: Stephane House MD Tissues: A Skin-Other than Cyst, tag, debridement or plastic repair (POSTERIOR SCALP) Procedures: Devi FRY/America Fontana Patient: Cheryl Scruggs [id number] (Continued) Specimen: [id number] Received: 11/16/22 (Continued) Signed (signature on file) Andrew Molina MD 11/17/22 834 Specimen: [id number] Received: 11/16/22 Status: POORNIMA Quigley Num: [id number] Spec Type: Surgical Subm Dr: Stephane House MD Tissues: A Skin-Other than Cyst, tag, debridement or plastic repair (POSTERIOR SCALP) Procedures: Devi FRY/America L4 Patient: Cheryl Scruggs [id number] (Continued) Specimen: [id number] Received: 11/16/22 (Continued) CPT Codes 04872 Specimen: [id number] Received: 11/16/22 Status: POORNIMA Quigley Num: [id number] Spec Type: Surgical Subm Dr: Stephane House MD Tissues: A Skin-Other than Cyst, tag, debridement or plastic repair (POSTERIOR SCALP) Procedures: Devi FRY/America L4 Patient: Cheryl Scruggs [id number] (Continued) Signed (signature on file) Andrew Molina MD 11/17/22 [id number] [facility] CNPNon 11-08-2022 CNPN Telephone ([place]ST[place]) CHERYL SCRUGGS ([id number]) 1985 F Date Time Provider Department 11/08/22 ANTIONETTE DORMAN During your visit today, we recorded the following information about you: Cheryl Knutson, JOÃO 11/08/2022 2:25 PM Signed Ava from [facility] is calling to get the progress noted from the office visit with Dr. Dorman on 10/06/2022. Please fax to Ava FAX # [phone] PHN# [phone] EXT 1200 Jazzy Ceballos RN 11/08/2022 4:20 PM Signed Received request to fa last OV clinical notes to [facility]. Faxed to [phone]. Received confirmation. Allergies As of Date: 11/08/2022 (No Known Allergies) Date Reviewed: 10/24/2022 Reviewed by: Martínez Aponte RN - Fully Assessed Reason for Visit: Electronic Communication [890] Prescriptions as of 11/08/2022 - Sennosides (SENNA) 8.6 mg cap Take 1 capsule by mouth as needed. - OLANZapine (ZYPREXA) 15 mg tablet 1 tablet by ORAL/FEEDING TUBE route daily at bedtime. - acetaminophen (TYLENOL) 325 mg tablet 2 tablets by ORAL/FEEDING TUBE route every 4 hours as needed for pain. - aluminum-magnesium hydroxide-simethicon e (MAALOX,MYLANTA,MAG- AL PLUS) 200-200-20 mg/5 mL suspension Take 30 mL by mouth every 6 hours as needed. - heparin 5,000 unit/mL injection Inject 0.5 mL subcutaneously every 12 hours. - lisinopril (ZESTRIL, PRINIVIL) 5 mg tablet 1 tablet by ORAL/FEEDING TUBE route once daily. - melatonin 3 mg tablet 1 tablet by ORAL/FEEDING TUBE route daily at bedtime. - ondansetron, PF, (ZOFRAN) 4 mg/2 mL soln Inject 4 mg intravenously every 6 hours as needed. - linaCLOtide (LINZESS) 290 mcg capsule Take by mouth once daily. - Sodium Fluoride, Dental Rinse, (PREVIDENT) 0.2 % soln by DENTAL route. Use every Sunday at bedtime. - montelukast (SINGULAIR) 10 mg tablet - sucralfate (CARAFATE) 100 mg/mL suspension Take 10 mL by mouth three times daily before meals. - docusate sodium (COLACE) 100 mg capsule Take 1 capsule by mouth three times daily. - loratadine (CLARITIN) 10 mg tablet Take 1 tablet by mouth once daily as needed for Cold/Allergy Symptoms (for allergy symptoms). - MULTIVITAMIN TAB Take one(1) tablet daily. 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 Dysphagia following nontraumatic intracerebral *09/06/2022 S/P Stefanie fundoplication (with gastrostomy tub*09/07/2022 Malnutrition of mild degree (HCC) [E44.1] 09/07/2022 Secondary hypertension [I15.9] 09/08/2022 Hypomagnesemia [E83.42] 09/12/2022 Thrombocytopenia (HCC) [D69.6] 09/12/2022 09/18/2022 Hypokalemia [E87.6] 09/13/2022 Elevated LFTs [R79.89] 09/14/2022 Restlessness and agitation [R45.1] 09/15/2022 Encounter Status:Closed by CHERYL KNUTSON on 11/08/22 Normal [facility] XR ABD FLAT UP_PA Jacob 10-26 XR ABD FLAT UP_PA CH Begin Addendum #1 Gastrostomy tube is seen in place within the gastric body. No obvious abnormal extravasation of contrast is seen. Original Report EXAM: XR ABD FLAT UP_PA CH HISTORY: Pain COMPARISON: Chest x-ray dated 09/05/2022. TECHNIQUE: Single frontal view of the chest as well as upright and supine views of the abdomen FINDINGS: The heart size is normal. No dense focal consolidation, pneumothorax or pleural effusion is seen. Gaseous distention of the stomach is seen. Air-fluid level is seen in the upper abdomen, which is felt to represent an air-fluid level in the stomach. Nonspecific bowel gas pattern is otherwise seen. No air-filled distended loops of bowel is seen to suggest bowel obstruction. Large volume of stool is seen in the colon. The visualized osseous structures appear unremarkable. IMPRESSION: Large volume of stool seen in the colon. No radiographic evidence for acute cardiopulmonary disease. Normal [facility] XR KUB 1 VIEWon 10-26-2022 XR KUB 1 VIEW EXAM: XR KUB 1 VIEW HISTORY: Pain COMPARISON: KUB dated 10/25/2022. TECHNIQUE: Single supine view of the abdomen FINDINGS: Nonspecific bowel gas pattern is seen. No air-filled distended loops of bowel is seen to suggest bowel obstruction. Large volume of stool is seen in the colon. No obvious pathologic calcification is seen. The visualized osseous structures appear unremarkable. IMPRESSION: Large volume of stool seen in the colon. Electronically authenticated by: LALO REES Date: 2022-10-25 22:24 Normal [facility] ANES POSTPROC EVALon 022 ANES POSTPROC EVAL HNO ID: [id number] Author: Sunny Araiza DO Service: ? 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 Post Anesthesia Patient Status Patient Evaluation: bedside. Anticipated Disposition: phase 2 then home. Neurological Status: aware and responsive. Pulmonary Status: breathing comfortably on supplemental oxygen Airway Control: returned to baseline unsupported. Cardiovascular Status: stable. Pain Management: clinically adequate Postoperative Hydration: acceptable. Intraoperative Events: no significant anesthesia events Post Operative Nausea/Vomiting Status: no significant post operative nausea or vomiting Recommendation: continue current plan of care. Anesthesia Observations No Documentation SIGNATURE: Sunny Araiza DO PATIENT NAME: Cheryl Scruggs DATE: October 24, 2022 TIME: 4:15 PM CSN: [id number] Normal [facility] ANES PRE-OPon 10-24-2022 ANES PRE-OP HNO ID: [id number] Author: Sunny Araiza DO Service: ? 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 as calculated from the following: Height as of this encounter: 134.6 cm (4' 5 ). Weight as of this encounter: 34 kg (75 lb). Most recent hematocrit and potassium results: Hematocrit 37.1 09/21/2022 Potassium 4.5 09/21/2022 Relevant Problems CARDIO (+) Secondary hypertension GI (+) GERD (gastroesophageal reflux disease) I - PHYSICAL EVALUATION AIRWAY Patient intubated: No. Tracheostomy tube not present Mallampati: II. TM distance: >3 FB. Neck ROM: full ROM without neurological symptoms. Mouth opening: adequate. Short neck: no. Thick neck: no Joe present: no Additional exam findings: no II - ANESTHESIA PLAN ASA Score: 3 Anesthetic Plan: general Airway type: anesthesia mask NPO Status: adequate Anesthetic plan additional comments: Chart reviewed. Pertinent pt's history reviewed and discussed with patient.. Beta Radha Monitoring Plan Monitoring plan: standard ASA. Post Procedure Analgesic Plan Postoperative analgesic plan: parenteral or oral opioids. Informed Consent Anesthetic risks, benefits, alternatives, personnel and consent discussed: no. Reason: Patient mentally impaired (consent obtained from dad) Patient / Responsible Republican agrees to proceed: no Reason: Patient mentally impaired (consent obtained from dad) Patient / Surrogate agrees to blood products: Yes DNR status not reviewed with patient and/or family prior to surgery. Significant changes in the patient condition since the History and Physical, not otherwise documented in primary service progress note: no. Potential Anesthesia issues that may suggest increased risk of complications or contraindication to planned procedure: none. Vitals Value Taken Time BP 140/97 10/24/22 1236 Pulse 63 10/24/22 1236 Resp 14 10/24/22 1236 Temp 36 ?C (96.8 ?F) 10/24/22 1236 SpO2 98 % 10/24/22 1236 Outpatient Medications as of 10/24/2022 Medication Sig - Sennosides (SENNA) 8.6 mg cap Take 1 capsule by mouth as needed. - OLANZapine (ZYPREXA) 15 mg tablet 1 tablet by ORAL/FEEDING TUBE route daily at bedtime. - acetaminophen (TYLENOL) 325 mg tablet 2 tablets by ORAL/FEEDING TUBE route every 4 hours as needed for pain. - aluminum-magnesium hydroxide-simethicon e (MAALOX,MYLANTA,MAG- AL PLUS) 200-200-20 mg/5 mL suspension Take 30 mL by mouth every 6 hours as needed. - heparin 5,000 unit/mL injection Inject 0.5 mL subcutaneously every 12 hours. - lisinopril (ZESTRIL, PRINIVIL) 5 mg tablet 1 tablet by ORAL/FEEDING TUBE route once daily. - melatonin 3 mg tablet 1 tablet by ORAL/FEEDING TUBE route daily at bedtime. - ondansetron, PF, (ZOFRAN) 4 mg/2 mL soln Inject 4 mg intravenously every 6 hours as needed. - linaCLOtide (LINZESS) 290 mcg capsule Take by mouth once daily. - Sodium Fluoride, Dental Rinse, (PREVIDENT) 0.2 % soln by DENTAL route. Use every Sunday at bedtime. - montelukast (SINGULAIR) 10 mg tablet - sucralfate (CARAFATE) 100 mg/mL suspension Take 10 mL by mouth three times daily before meals. - docusate sodium (COLACE) 100 mg capsule Take 1 capsule by mouth three times daily. - loratadine (CLARITIN) 10 mg tablet Take 1 tablet by mouth once daily as needed for Cold/Allergy Symptoms (for allergy symptoms). - MULTIVITAMIN TAB Take one(1) tablet daily. Facility-Administere d Medications as of 10/24/2022 Medication Dose Route Frequency - lactated ringers iv infusion 30 mL/hr INTRAVENOUS CONTINUOUS I have interviewed and examined the patient. I have reviewed the medical record and/or the pre-anesthesia evaluation, pertinent labs, and test results. This contains updated information obtained within 48 hours of Surgery/Procedure. SIGNATURE: Sunny Araiza DO PATIENT NAME: Cheryl Scruggs DATE: October 24, 2022 TIME: 3:23 PM CSN: [id number] Normal [facility] B-HCG SerPl-aCncon 2 HCG.beta subunit Qn m[IU]/mL Normal <5.0 [facility] Comment on above: Order Comment: Speci men Type: BLOOD SPECIMENOrdering Facility: [facility] Address: [address] [place] [address] Result Comment: Nega tive Performed By: #### 2 1198-7 ####[facility] LABCLIA [id number] [place] [address] [place] EGD - THERAPEUTIC, EUS, OR T UBE INTERVENTIONSon 10-24-2022 [facility] HCG QUANTITATIVEon 2 HCG.beta subunit Qn <5.0 mIU/mL [facility] NURSING PROGon 10-24-2022 NURSING PROG HNO ID: [id number] Author: Alesia Yu RN Service: Nursing Author Type: Registered Nurse Type: Nursing Progress Note Filed: 10/24/2022 12:41 PM Note Text: Patient non verbal with Father by her side answering questions, giving care and consent. Normal [facility] NURSING PROG HNO ID: [id number] Author: Alesia Yu RN Service: Nursing Author Type: Registered Nurse Type: Nursing Progress Note Filed: 10/24/2022 12:40 PM Note Text: PRE OP LEARNING ASSESSMENT PROCEDURE/SURGERY: GI PROCEDURES: EGD READINESS TO LEARN COGNITIVE ABILITY: Developmentally Disabled MOTIVATION TO LEARN: Disinterested / avoidant FAMILY SUPPORT: High - Very involved in pt care PATIENT LEARNS BEST BY: Unable to Assess FACTORS AFFECTING LEARNING: Unable to assess PHYSICAL LIMITATIONS AFFECTING LEARNING: Sensory Deficit Speech: Aphasic Electronically Signed By: Alesia Yu RN In Department: GASTROENTEROLOGY Normal [facility] BNPon 09-05-2022 Natriuretic peptide B (Bld) [Mass/Vol] 123.0 pg/mL Normal <=450.0 [facility] Comment on above: Performed By: #### C MP, BNP, CMADM #### [facility] [address] [place], [place] [address] Dr. Hay Toledo CARDIAC ELEANOR ADMITon 022 CK [Catalytic activity/Vol] 113 U/L Normal 26-192 [facility] Comment on above: Performed By: #### C MP, BNP, CMADM ####[facility] [id number] [place] [address]Dr. Hay Toledo CK.MB [Mass/Vol] 1.02 ng/mL Normal <=3.60 [facility] Comment on above: Performed By: #### C MP, BNP, CMADM ####[facility] [address] [place] [address]Dr. Hay Toledo HSTROP 6.5 pg/mL Normal 4.0-51.3 [facility] Comment on above: Result Comment: CUT- OFF POINTS HAVE BEEN ESTABLISHED BASED ON THE FOURTH UNIVERSAL DEFINITIONS OF MYOCARDIAL INFARCTION. THE UPPER REFERENCE LIMIT (URL) OF TROPONIN, DEFINED THE 99TH PERCENTILE OF cTnI DISTRIBUTION IN A REFERENCE POPULATION, HAS BEEN CONFIRMED THE DECISION THRESHOLD FOR NV DIAGNOSIS. Performed By: #### C MP, BNP, CMADM ####[facility] [id number] [place] [address]Dr. Hay Toledo HANNAH 61 ng/mL Normal 9-82 [facility] Comment on above: Performed By: #### C MP, BNP, CMADM ####[facility] [address] [place] [address]Dr. Hay Toledo CBC AUTO DIFFon 11-01-2022 BASO # 0.0 103/ul Normal 0.0-0.1 [facility] Comment on above: Performed By: #### C BC #### [facility] [address] [place] [address] Dr. Hay Toledo Basophils/100 WBC (Bld) 0.6 % Normal 0.2-2.0 [facility] Comment on above: Performed By: #### C BC #### [facility] [address] [place] [address] Dr. Hay Toledo EO # 0.0 103/ul Normal 0.0-0.7 [facility] Comment on above: Performed By: #### C BC #### [facility] [address] [place] [address] Dr. Hay Toldeo Eosinophils/100 WBC (Bld) 0.0 % Critically low 0.9-7.0 [facility] Comment on above: Performed By: #### C BC #### [facility] [address] [place] [address] Dr. Hay Toledo Erythrocyte distribution width (RBC) [Ratio] 13.8 % Normal 11.0-15.0 [facility] Comment on above: Performed By: #### C BC #### [facility] [address] [place] [address] Dr. Hay Toledo Hematocrit (Bld) [Volume fraction] 41.4 % Normal 36.0-48.0 [facility] Comment on above: Performed By: #### C BC #### [facility] [address] [place] [address] Dr. Hay Toledo Hemoglobin (Bld) [Mass/Vol] 13.5 g/dL Normal 12.0-16.0 [facility] Comment on above: Performed By: #### C BC #### [facility] [address] [place] [address] Dr. Hay Toledo IG # 0.01 10e3/ul Normal 0.00-0.03 [facility] Comment on above: Performed By: #### C BC #### [facility] [address] [place] [address] Dr. Hay Toledo IG % 0.2 % Normal 0.0-0.5 [facility] Comment on above: Performed By: #### C BC #### [facility] [address] [place] [address] Dr. Hay Toledo LYMPH # 1.4 103/ul Normal 1.2-3.8 [facility] Comment on above: Performed By: #### C BC #### [facility] [address] [place] [address] Dr. Hay Toledo Lymphocytes/100 WBC (Bld) 26.7 % Normal 20.5-60.0 [facility] Comment on above: Performed By: #### C BC #### [facility] [address] [place] [address] Dr. Hay Toledo MANUAL DIFF REQ NO Normal [facility] Comment on above: Performed By: #### C BC #### [facility] [address] [place] [address] Dr. Hay Toledo MCH (RBC) [Entitic mass] 27.0 pg Normal 26.7-34.0 [facility] Comment on above: Performed By: #### C BC #### [facility] [address] [place] [address] Dr. Hay Toledo MCHC (RBC) [Mass/Vol] 32.6 g/dL Normal 29.9-35.2 [facility] Comment on above: Performed By: #### C BC #### [facility] [address] [place] [address] Dr. Hay Toledo MCV (RBC) [Entitic vol] 82.8 fL Normal 81.0-99.0 [facility] Comment on above: Performed By: #### C BC #### [facility] [address] [place] [address] Dr. Hay Toledo MONO # 0.6 103/ul Normal 0.3-0.8 [facility] Comment on above: Performed By: #### C BC #### [facility] [address] [place] [address] Dr. Hay Toledo Monocytes/100 WBC (Bld) 11.0 % Normal 1.7-12.0 [facility] Comment on above: Performed By: #### C BC #### [facility] [address] [place] [address] [address] Hay Toledo NEUT # 3.2 103/ul Normal 1.4-6.5 [facility] Comment on above: Performed By: #### C BC #### [facility] [address] [place] [address] [address] Hay Toledo Neutrophils/100 WBC (Bld) 61.5 % Normal 43.0-75.0 [facility] Comment on above: Performed By: #### C BC #### [facility] [address] [place] [address] [address] Hay Toledo Platelet mean volume (Bld) [Entitic vol] 9.7 fL Normal 9.5-13.5 [facility] Comment on above: Performed By: #### C BC #### [facility] [address] [place] [address] Dr. Hay Toledo PLT 236 103/ul Normal 150-450 [facility] Comment on above: Performed By: #### C BC #### [facility] [address] [place] [address] [address] Hay Toledo RBC 5.00 106/ul Normal 4.20-5.40 [facility] Comment on above: Performed By: #### C BC #### [facility] [address] [place] [address] Dr. Hay Toledo WBC 5.3 103/ul Normal 4.0-11.0 [facility] Comment on above: Performed By: #### C BC #### [facility] [address] [place] [address] STROKE HEAD WOon 09-05-20 CT STROKE HEAD WO EXAMINATION: CT STROKE HEAD WO, 09/05/2022 2:13 PM EDT HISTORY: Cerebrovascular accident COMPARISON: None. TECHNIQUE: CT scan of the head was performed without IV contrast. CT dose reduction technique was used, including Automated Exposure Control. FINDINGS: BRAIN: Round/curvilinear hyperdensity identified in the right amaris best seen on axial image 9 and sagittal image 24 with the most dense central portion measuring 7.7 x 8.6 x 6.1 mm. 7.7 x 6.3 x 8.6 mm area of hyperdensity with slightly decreased CSF SPACES: No hydrocephalus, subarachnoid hemorrhage, or mass. Appropriate for age. SKULL: No fracture, mass, or other significant visible lesion. SINUSES: No significant mucosal thickening or fluid on the limited views. ORBITS: No appreciable abnormality on the limited views. OTHER: Findings discussed with Dr. Hogan by telephone at 2:34 PM IMPRESSION: Area of hyperdensity in the right amaris. I suspect an area of acute hemorrhage. Consideration should be given to an underlying vascular malformation versus malignancy Electronically authenticated by: ROBERT ROMO Date: 2022-09-05 14:37 Normal [facility] Covid-19 PCR ([facility])on SARS-CoV-2 (COVID-19) RNA LAURIE+probe Ql (Unsp spec) Not detected Normal NOT DETECTED [facility] Comment on above: Result Comment: When diagnostic testing is negative, the possibility of a false negative should be considered in the context of a patient's recent exposures and the presence of clinical signs and symptoms consistent with SARS-CoV-2. This test is not yet approved or cleared by the [place] FDA. When there are no FDA-approved or cleared tests available, and other criteria are met, FDA can make tests available under an emergency access mechanism called an Emergency Use Authorization (EUA). The EUA for this test is supported by the [place] of Health and Human Service's declaration that circumstances exist to justify the emergency use of in vitro diagnostics for the detection and/or diagnosis of the virus that causes COVID-19. This EUA will remain in effect for the duration of the COVID-19 declaration justifying emergency of IVDs, unless it is terminated or revoked by the FDA (after which the test may no longer be used). Performed By: #### C VDTB ####[facility] [address] [place], [place] [address]Dw. Hay Toledo PROF 14(COMP METB)on 022 Albumin [Mass/Vol] 3.4 g/dL Normal 3.4-5.0 [facility] Comment on above: Performed By: #### C MP, BNP, CMADM #### [facility] [address] [place] [address] [address] Hay Toledo Albumin/Globulin [Mass ratio] 0.9 {ratio} Normal [facility] Comment on above: Performed By: #### C MP, BNP, CMADM #### [facility] [address] [place] [address] [address] Hay Toledo ALP [Catalytic activity/Vol] 87 U/L Normal 46-116 [facility] Comment on above: Performed By: #### C MP, BNP, CMADM #### [facility] [address] [place] [address] [address] Hay Toledo ALT [Catalytic activity/Vol] 25 U/L Normal 14-59 [facility] Comment on above: Performed By: #### C MP, BNP, CMADM #### [facility] [address] [place] [address] Dr. Hay Toledo Anion gap [Moles/Vol] 11.1 mmol/L Normal [facility] Comment on above: Performed By: #### C MP, BNP, CMADM #### [facility] [address] [place] [address] [address] Hay Toledo AST [Catalytic activity/Vol] 18 U/L Normal 15-37 [facility] Comment on above: Performed By: #### C MP, BNP, CMADM #### [facility] [address] [place] [address] Dr. aHy Toledo Bilirubin [Mass/Vol] 0.3 mg/dL Normal 0.2-1.0 [facility] Comment on above: Performed By: #### C MP, BNP, CMADM #### [facility] [address] [place] [address] Dr. Hay Toledo Calcium [Mass/Vol] 9.0 mg/dL Normal 8.5-10.1 [facility] Comment on above: Performed By: #### C MP, BNP, CMADM #### [facility] [address] [place] [address] Dr. Hay Toledo Chloride [Moles/Vol] 104 mmol/L Normal 98-107 [facility] Comment on above: Performed By: #### C MP, BNP, CMADM #### [facility] [address] [place] [address] [address] Hay Toledo CO2 [Moles/Vol] 30.5 mmol/L Normal 21.0-32.0 [facility] Comment on above: Performed By: #### C MP, BNP, CMADM #### [facility] [address] [place] [address] [address] Hay Toledo Creatinine [Mass/Vol] 0.70 mg/dL Normal 0.55-1.02 [facility] Comment on above: Performed By: #### C MP, BNP, CMADM #### [facility] [address] [place] [address] [address] Hay Toledo EGFR-AF JAPANESE >60 Normal >=60 [facility] Comment on above: Performed By: #### C MP, BNP, CMADM #### [facility] [address] [place] [address] [address] Hay Toledo EGFR-NON AF JAPANESE >60 Normal >=60 [facility] Comment on above: Performed By: #### C MP, BNP, CMADM #### [facility] [address] [place] [address] [address] Hay Toledo Globulin (S) [Mass/Vol] 3.9 g/dL Normal [facility] Comment on above: Performed By: #### C MP, BNP, CMADM #### [facility] [address] [place] [address] [address] Hay Toledo Glucose [Mass/Vol] 95 mg/dL Normal 74-106 [facility] Comment on above: Performed By: #### C MP, BNP, CMADM #### [facility] [address] [place] [address] [address] Hay Toledo Potassium [Moles/Vol] 4.6 mmol/L Normal 3.5-5.1 [facility] Comment on above: Performed By: #### C MP, BNP, CMADM #### [facility] [address] [place] [address] [address] Hay Toledo Protein [Mass/Vol] 7.3 g/dL Normal 6.4-8.2 [facility] Comment on above: Performed By: #### C MP, BNP, CMADM #### [facility] [address] [place] [address] [address] Hay Toledo Sodium [Moles/Vol] 141 mmol/L Normal 136-145 [facility] Comment on above: Performed By: #### C MP, BNP, CMADM #### [facility] [address] [place] [address] [address] Hay Toledo Urea nitrogen [Mass/Vol] 16.0 mg/dL Normal 7.0-18.0 [facility] Comment on above: Performed By: #### C MP, BNP, CMADM #### [facility] [address] [place] [address] [address] Hay Toledo Urea nitrogen/Creatinine [Mass ratio] 22.9 mg/mg Normal [facility] Comment on above: Performed By: #### C MP, BNP, CMADM #### [facility] [address] [place] [address] [address] Hay Toledo PROTIMEon 09-05-2022 INR Coag (PPP) [Relative time] 1.06 {INR} Normal [facility] Comment on above: Performed By: #### P T, PTT ####[facility] [address] [place] [address]Dr. Hay Toledo INR GUIDELINES SEE BELOW Normal The [facility] Comment on above: Result Comment: MARSHALL RED INR: 2.0 - 3.0 CONDITIONS NOT LISTED BELOW 2.5 - 3.5 FOR PROSTHETIC HEART VALVE REPLACEMENT 2.5 - 3.5 RECURRENT THROMBOSIS Performed By: #### P T, PTT ####[facility] [id number] [place] [address]Dr. Hay Toledo PT Coag (PPP) [Time] 11.4 s Normal 9.0-11.6 [facility] Comment on above: Performed By: #### P T, PTT ####[facility] [id number] [place] [address]Dr. Hay Toledo PTTon 09-05-2022 aPTT Coag (Bld) [Time] 30.0 s Normal 22.3-36.2 [facility] Comment on above: Performed By: #### P T, PTT ####[facility] [id number] [place], [place] [address]OeSeth Toledo XR CHEST 1 Von 09-05-2022 XR CHEST 1 V EXAM: XR CHEST 1 V HISTORY: Not moving left side of body COMPARISON: Chest x-ray 11/24/2019 TECHNIQUE: Portable chest FINDINGS: The lung parenchyma is free of consolidation or infiltrate. No pneumothorax or pleural effusion. The cardiac, mediastinal and hilar contours are normal. The visualized osseous structures exhibit no gross abnormality. IMPRESSION: No acute cardiopulmonary abnormality. Electronically authenticated by: ROBERT STAHL Date: 2022-09-05 15:58 Normal [facility] Anesthesia Attestationon Hearing Aid Dispenser Authentication Interface Message Text Anesthesia Attestation ATTESTATION OF INFORMED CONSENT FOR ANESTHESIA Anesthesia options were discussed with the patient and/or legal financial services representative. The risks, benefits and alternatives were reviewed. Questions regarding anesthesia were answered. Patient and/or legal financial services representative knows such anesthetics and procedures may be performed by Resident physicians, Certified Anesthesiologist Assistants, or Certified Nurse Anesthetists under the supervision of a physician. The patient /or the patient's legal financial services representative agree with the plan for anesthesia. Normal The [facility] Anesthesia Postprocedure Omayra luationon 08-18-2022 Hearing Aid Dispenser Authentication Interface Message Text Anesthesia Postoperative Assessment: Vital Signs (most recent): BP 184/80 Temp 36.4 ???C (97.5 ???F) (Temporal) Ht 4' (1.219 m) Wt 78 lb (35.4 kg) SpO2 93% BMI 23.80 kg/m??? Anesthesia Post Evaluation Level of consciousness: awake Post-procedure exam normal. Body temperature, hydration status, PONV and pain evaluated and addressed. Pain management: adequate Hydration status: normal PONV:No nausea/vomiting reported Cardiopulmonary status stable Respiratory status: acceptable Cardiovascular status: acceptable ANESTHESIA NOTABLE EVENTS: No notable events documented. 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 Most people with [place] de Hastings syndrome also have distinctive facial features, including arched eyebrows that often meet in the middle (synophrys), long eyelashes, low-set ears, small and widely spaced teeth, and a small and upturned nose. Many affected individuals also have behavior problems similar to autism, a developmental condition that affects communication and social interaction. Additional signs and symptoms of Edwina de Hastings syndrome can include excessive body hair (hypertrichosis), an unusually small head (microcephaly), hearing loss, and problems with the digestive tract. Some people with this condition are born with an opening in the roof of the mouth called a cleft palate. Seizures, heart defects, and eye problems have also been reported in people with this condition. - [place] de Hastings Syndrome: Edwina de Hastings syndrome (CdLS) is a genetic disorder caused by mutations in the cohesin complex and its regulators with hypoplasia of the mesenchyme as the suggested main pathophysiology. The majority of cases are sporadic. The clinical characteristics include growth retardation, gastrointestinal transport problems, hirsutism, limb abnormalities and facial abnormalities, such as brachycephaly, short neck, high arched eyebrows, short nose, low-set ears, wide nasal bridge, sometimes cleft palate, laryngeal anomalies and micrognathia (2). The mental development is compromised and might be accompanied by aggressive, autistic or self-destructive tendencies (8). Epilepsy and congenital cardiac defects are sometimes associated, as well as immunodeficiency. Anesthetic management concentrates on airway management (which can be challenging) and in prevention of aspiration, the leading cause of in CdLS (https://www.orphana nesthesia.eu/en/rare -diseases/published- guidelines/edwina- lq-rwops-sjijhcez/28 7-kjlnbtqj-rv-hastings- syndrome/file.html) - Patient is vaccinated for COVID-19 Pfizer x3 doses. Vaccinations are documented in Epic. Vaccination record scanned into [facility]. Patient does not require pre-op COVID testing per current guidelines. - Hx. Of dental restorations x3 Physical Exam Airway Mallampati: unable to assess Dental Dentition: dental caries Pulmonary - pulmonary exam normal Comment: Chest clear to auscultation bilaterally Cardiovascular - cardiovascular exam normal Comment: RRR with S1S2; no murmurs, gallops, or rubs Neuro Comment: - Pt. Is non-verbal and not ambulating Plan Anesthesia plan: general (ETT) Medications may include (but not limited to): anxiolytics, narcotic analgesics, IV hypnotics, neuromuscular blockers and inhalational analgesics Pain management: May include (but not limited to): IV, oral, anxiolytics and narcotic analgesics Anesthesia risks / alternatives discussed pre-op ( Informed Consent for dental surgery AND Anesthesia consent obtained and scanned into EPIC. Scheduled for surgery 08/18/2022. ; D/w the pt.'s father in the pre-op) Questions answered / anesthesia plan accepted Past medical history, surgical history, allergies, and medications reviewed. Pertinent laboratory tests, EKG, imaging, and consults reviewed and I have personally seen and evaluated the patient, repeating delgadillo portions of the history and physical examination. Normal [facility] Anesthesia Transfer Of Careo n 08-18-2022 Hearing Aid Dispenser Authentication Interface Message Text Patient taken to PACU. Patient was awake, comfortable and stable on arrival. Anesthesia Transfer of Care Note Past Medical History: No past medical history on file. 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] GERD (gastroesophageal reflux disease) [K21.9] Past Surgical History: Review of patient's past surgical history indicates: DENTAL RESTORATIONS (01/09/2014) Procedure: DENTAL RESTORATIONS; Surgeon: Neptali Chávez DDS; Location: PERIOPERATIVE SERVICES; Service: Dental DENTAL RESTORATIONS (07/21/2016) Procedure: DENTAL RESTORATIONS; Surgeon: Silvano Rain DDS; Location: PERIOPERATIVE SERVICES; Service: Dental DENTAL RESTORATIONS (11/29/2018) Procedure: DENTAL RESTORATIONS, FULL MOUTH EXAM, X-RAYS, CLEANING; Surgeon: Quinton Barrett DDS; Location: PERIOPERATIVE SERVICES; Service: Dental Allergies: Patient has no known allergies. Basic Operating Room Facts: Surgeon(s): Nilda Davenport DDS Anesthesiologist: Samuel Wilson MD CAA: Anat Alvarado CAA NICKING MACHINE OPERATOR: Nate Delcid APRN-CRNA DENTAL RESTORATIONS (Bilateral) EXTRACTION, TOOTH Intraoperative Events: No acute event ASA: 3 EBL: 5 mL Urine Not documented Lactated Ringers and NaCl 0.9%: Fluid Totals (Filter: LR and NaCl 0.9% Medications Shown) Medication Calculated Total Lactated Ringers 400 mL / 1 bag Cell Saver: Not documented Blood Volume Values: Blood Products None MTP Blood: MTP PRBC: Not documented MTP FFP: Not documented MTP PLT: Not documented MTP Cryo: Not documented MTP Whole Blood: Not documented Current Vasoactive Medications: {Vasoactive Medications: None Lines, Drains, Airways Peripheral IV Access: 11/29/18 1031 (Active) Peripheral IV Access: 08/18/22 1233 22 gauge Left Forearm (Active) Site Assessment WN 08/18/22 1447 Infusion Status Port #1 Infusing 08/18/22 1447 Airway Insertion Details [REMOVED] Advanced Airway: ETT, Nasal;Cuffed #6 (Removed) 08/18/22 1238 Pre-Oxygenation/ Induction: Mask Rapid Sequence Induction?: Mask Ventilation: Easy Blade size: Mac 3 Visualization: Grade 1 Airway Type: ETT, Nasal;Cuffed Airway Size: #6 Post Insertion Assessment: Confirmation: Equal bilateral breath sounds, CO2 confirmed # Attempts >1: Special Equipment: Present on Admission?: Previously Removed / Not Present: Removal Reason: Not Removed at Discharge: Removed 08/18/22 1437 Location (cm) 27 08/18/22 1238 Measured from: Naris 08/18/22 1238 Secured via: Taped 08/18/22 1238 Site Assessment WNL 08/18/22 1238 All non-working IVs have been removed: N/A Laboratory Data: CBC (last 3 years, up to 5 values) None Basic Metabolic Panel None Basic Metabolic Panel None No results found for: INR No result for BNP LFT's (last 3 years, up to 5 values) None Arterial Blood Gases None Hand off Completed: Yes 1. The patient was identified. 2. Pertinent medical history was relayed. 3. A brief discussion was had about any pertinent surgical/ procedural issues. 4. Intraoperative/ anesthetic management issue and concerns were discussed. 5. Plans for the early post-operative period relayed. 6. An opportunity for questions and acknowledgment of understanding of the report was received. OSEAS Adan Normal [facility] Blood Attestationon 08-18-20 Hearing Aid Dispenser Authentication Interface Message Text Blood Attestation ATTESTATION OF INFORMED CONSENT FOR BLOOD The transfusion of blood and/or blood components were discussed with the patient and/or legal financial services representative. The risks, benefits and alternatives were reviewed. Questions regarding blood transfusions were answered. The patient /or the patient's legal financial services representative agree with the plan for transfusion of blood and/or blood components. 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 Postoperative Diagnosis: [place] de Hastings Syndrome Q87.19 Profound Intellectual Disability F 79 Procedures: Exam 24551 Full mouth x-rays 71215 Restorations 73891 Extractions 74237 Prophy 71369 Surgeon(s): Surgeon(s): Nilda Davenport DDS Staff: Warranty Coordinator Nurse: Roxana Marshall RN Guard Rail Installer: Suri Reynolds DDS Anesthesia: General Anesthesiologist: Samuel Wilson MD CAA: Anat Alvarado CAA NICKING MACHINE OPERATOR: Nate Delcid APRN-CRNA Specimen(s): * No specimens in log * Estimated Blood Loss: less than 5 cc Lines/Drains: Peripheral IV Access: 11/29/18 1031 (Active) Peripheral IV Access: 08/18/22 1233 22 gauge Left Forearm (Active) Site Assessment WNL;Dressing intact 08/18/22 1233 Infusion Status Port #1 Infusing;Patent;Posi tive blood return 08/18/22 1233 Temporarily Retained Foreign Object: No Findings: Normal Complications: None Status at end of surgery: Stable Activity: Ad Suma and weight bearing as tolerated Surgical wound class: No wound. Patient Class: Outpatient Surgery. Is this a patient scheduled as an outpatient that needs to be admitted as an inpatient? No Dr. Nilda Alvarado was present in the OR for the critical portion of the procedure and procedure sign-out. 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 Findings: The patient was brought to the operating room and placed in the supine position on the operating room table. Following satisfactory induction of GA. The patient was intubated with a nasal endotracheal tube. She was then prepped and drapped in the usual sterile fashion for dental procedures. Full mouth series were then taken and an oral examination was completed. A moistened throat pack was then placed. Full mouth scaling and root planing was then performed. The radiographs were examined by the attending and the resident and used in conjunction with th oral exam to formulate a treatment plan. The restorative aspect of the treatment plan included the following: Composite Restorations: #6 FD, 11 FD, 23 FD, 10 FD, 26 FD. Amalgam Restorations: #2 B5, 18 OB, 12 O. These restorations were placed following excavation of the carious lesions on each tooth. The surgical aspect of the treatment plan included the following extraction(s) and/or root removal: Teeth # 5 and #K. Gel foam and 3.0 chromic gut sutures were placed in all extraction sites. NOTE: Decay on #5 was very deep, pulp exposed, ext was recommended. The remaining dentition was then polished with prophy paste. The oral cavity was irrigated and suctioned then the throat pack was removed. Fluoride treament was placed on the remaining dentition. The patient tolerated the procedure well was extubated in the operating room, and taken to the PACU in stable condition. Complications: None Status at end of surgery: Stable Medications: Outpatient Medications Marked as Taking for the 08/18/22 encounter (Hospital Encounter) Medication Sig Dispense Refill omeprazole (PRILOSEC) 20 MG capsule sucralfate (CARAFATE) 1 GM/10ML oral suspension TAKE 2 TEASPOONSFUL (1GM) BY MOUTH 3 TIMES DAILY BEFORE MEALS CARAFATE Nortrel 1/35, 28, 1-35 MG-MCG tablet TAKE ONE TABLET BY MOUTH ONCE DAILY FOR 21 DAYS, SKIP SUGAR PILLS. TAKE SUGAR PILLS EVERY THIRD PACK OLANZapine (ZyPREXA) 10 MG tablet Take 10 mg by mouth daily. sucralfate (CARAFATE) 1 GM tablet Take 1 g by mouth 3 times daily. ranitidine (ZANTAC) 75 MG tablet Take 75 mg by mouth 2 times daily. Dictated by: Suri Reynolds DDS: Nilda Alvarado DDS was present for the critical portions of the procedure. Suri Reynolds DDS 08/18/2022 2:36 PM Normal [facility] [facility] Progress Noteson 08-18-2022 Hearing Aid Dispenser Authentication Interface Message Text Pt arrived from OR with Anesthesia at bedside. Very restless and not cooperating in care. Pulling off all monitoring devices. One set of vitals obtained. 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 Findings: The patient was brought to the operating room and placed in the supine position on the operating room table. Following satisfactory induction of GA. The patient was intubated with a nasal endotracheal tube. She was then prepped and drapped in the usual sterile fashion for dental procedures. Full mouth series were then taken and an oral examination was completed. A moistened throat pack was then placed. Full mouth scaling and root planing was then performed. The radiographs were examined by the attending and the resident and used in conjunction with th oral exam to formulate a treatment plan. The restorative aspect of the treatment plan included the following: Composite Restorations: #6 FD, 11 FD, 23 FD, 10 FD, 26 FD. Amalgam Restorations: #2 B5, 18 OB, 12 O. These restorations were placed following excavation of the carious lesions on each tooth. The surgical aspect of the treatment plan included the following extraction(s) and/or root removal: Teeth # 5 and #K. Gel foam and 3.0 chromic gut sutures were placed in all extraction sites. NOTE: Decay on #5 was very deep, pulp exposed, ext was recommended. The remaining dentition was then polished with prophy paste. The oral cavity was irrigated and suctioned then the throat pack was removed. Fluoride treament was placed on the remaining dentition. The patient tolerated the procedure well was extubated in the operating room, and taken to the PACU in stable condition. Complications: None Status at end of surgery: Stable Medications: Medications Taking Outpatient Medications Marked as Taking for the 08/18/22 encounter (Hospital Encounter) Medication Sig Dispense Refill * omeprazole (PRILOSEC) 20 MG capsule * sucralfate (CARAFATE) 1 GM/10ML oral suspension TAKE 2 TEASPOONSFUL (1GM) BY MOUTH 3 TIMES DAILY BEFORE MEALS CARAFATE * Nortrel 1/35, 28, 1-35 MG-MCG tablet TAKE ONE TABLET BY MOUTH ONCE DAILY FOR 21 DAYS, SKIP SUGAR PILLS. TAKE SUGAR PILLS EVERY THIRD PACK * OLANZapine (ZyPREXA) 10 MG tablet Take 10 mg by mouth daily. * sucralfate (CARAFATE) 1 GM tablet Take 1 g by mouth 3 times daily. * ranitidine (ZANTAC) 75 MG tablet Take 75 mg by mouth 2 times daily. Dictated by: Suri Reynolds DDS: Nilda Alvarado DDS was present for the critical portions of the procedure. Suriclaudia Reynolds DDS 08/18/2022 2:36 PM Normal [facility] [employer] [facility] Anesthesia Preprocedure Chitra barrientos 08-17-2022 Hearing Aid Dispenser Authentication Interface Message Text ASA: 3 Past Medical History and Review of Systems Pulmonary (-) non-smoker Dental Comment: Dental caries Endo Neuro/Psych Comment: - Intellecctual disability Cardiovascular (+) Surgical risk: intermediate; Cardiac condition: no apparent No previous ECG available GI/Hepatic/Renal (+) GERD, Heme/Other Other ROS: - Edwina de Hastings syndrome: Edwina de Hastings syndrome is characterized by slow growth before and after leading to short stature; intellectual disability that is usually moderate to severe; and abnormalities of bones in the arms, hands, and fingers. Most people with [place] de Hastings syndrome also have distinctive facial features, including arched eyebrows that often meet in the middle (synophrys), long eyelashes, low-set ears, small and widely spaced teeth, and a small and upturned nose. Many affected individuals also have behavior problems similar to autism, a developmental condition that affects communication and social interaction. Additional signs and symptoms of [place] de Hastings syndrome can include excessive body hair (hypertrichosis), an unusually small head (microcephaly), hearing loss, and problems with the digestive tract. Some people with this condition are born with an opening in the roof of the mouth called a cleft palate. Seizures, heart defects, and eye problems have also been reported in people with this condition. - Edwina de Hastings Syndrome: Edwina de Hastings syndrome (CdLS) is a genetic disorder caused by mutations in the cohesin complex and its regulators with hypoplasia of the mesenchyme as the suggested main pathophysiology. The majority of cases are sporadic. The clinical characteristics include growth retardation, gastrointestinal transport problems, hirsutism, limb abnormalities and facial abnormalities, such as brachycephaly, short neck, high arched eyebrows, short nose, low-set ears, wide nasal bridge, sometimes cleft palate, laryngeal anomalies and micrognathia (2). The mental development is compromised and might be accompanied by aggressive, autistic or self-destructive tendencies (8). Epilepsy and congenital cardiac defects are sometimes associated, as well as immunodeficiency. Anesthetic management concentrates on airway management (which can be challenging) and in prevention of aspiration, the leading cause of in CdLS (https://www.[employer].eu/en/rare -diseases/published- guidelines/edwina- hw-pzgyb-fatgtckv/28 0-hxojepeh-mb-hastings- syndrome/file.html) - Patient is vaccinated for COVID-19 Pfizer x3 doses. Vaccinations are documented in Epic. Vaccination record scanned into [facility]. Patient does not require pre-op COVID testing per current guidelines. - Hx. Of dental restorations x3 Physical Exam Airway Dental Dentition: dental caries Pulmonary Cardiovascular Neuro Plan Anesthesia plan: general (ETT) Medications may include (but not limited to): anxiolytics, narcotic analgesics, IV hypnotics, neuromuscular blockers and inhalational analgesics Pain management: May include (but not limited to): IV, oral, anxiolytics and narcotic analgesics Anesthesia risks / alternatives discussed pre-op ( Informed Consent for dental surgery AND Anesthesia consent obtained and scanned into [email or web address]. Scheduled for surgery 08/18/2022. ) Questions answered / anesthesia plan accepted Past medical history, surgical history, allergies, and medications reviewed and Pertinent laboratory tests, EKG, imaging, and consults reviewed Normal [facility] [employer] [facility] [facility] Telephone Encounteron 2021 Hearing Aid Dispenser Authentication Interface Message Text Informed Consent for dental surgery AND Anesthesia consent obtained and scanned into [email or web address]. Scheduled for surgery 08/18/2022. Normal [facility] Progress Noteson 08-10-2022 Hearing Aid Dispenser Authentication Interface Message Text Received call from Dorota [employer] - regarding OR visit -- returned call, no answer -- left voicemail message.----- August at 8:36:16 AM ----- ----- Provider: Hilary iJmenez Specialist -- Clinic: [place] ----- Normal [facility] [employer] [facility] [facility] Vital Signs Date Time Vital Sign Value Performing Clinician León lundberg 12-20-2023 11:06-0500 Body height 130.8 cm Pfws Broach Grinder [facility] 12-20-2023 11:06-0500 Body mass index (BMI) [Ratio] 22.19 kg/m2 Pfws [employer]ach Gr[employer] [facility] 12-20-2023 11:06-0500 Body weight 37.97 kg Pfws Broach Grinder [facility] 04-06-2023 11:58-0400 Diastolic blood pressure 90 mm[Hg] Antionette Dorman MD, PhD Work Phone: [facility] 04-06-2023 11:58-0400 Heart rate 92 /min Antionette Dorman MD, PhD Work Phone: [facility] 04-06-2023 11:58-0400 Systolic blood pressure 126 mm[Hg] Antionette Dorman MD, PhD Work Phone: [facility] 10-24-2022 16:20-0500 Diastolic blood pressure 77 mm[Hg] Rc Garza MD Work Phone: [facility] 10-24-2022 16:20-0500 Heart rate 92 /min Rc Garza MD Work Phone: [facility] 10-24-2022 16:20-0500 SaO2% (BldA) [Mass fraction] 100 % Rc Garza MD Work Phone: [facility] 10-24-2022 16:20-0500 Systolic blood pressure 128 mm[Hg] Rc Garza MD Work Phone: [facility] 10-24-2022 15:56-0500 Body temperature 97.5 [degF] Rc Garza MD Work Phone: [facility] 10-24-2022 12:36-0500 Body height 134.6 cm Rc Garza MD Work Phone: [facility] 10-24-2022 12:36-0500 Body weight 34.02 kg Rc Garza MD Work Phone: [facility] 10-24-2022 12:36-0500 Respiratory rate 14 /min Rc Garza MD Work Phone: [facility] Encounters Encounter Date Encounter Type Care Provider Facility Start: 12-20-2023 [facility] Start: 12-20-2023 Encounter for gynecological examination (general) (routine) without abnormal findings [facility] Start: 12-20-2023 End: 12-20-2023 Manual pelvic examination Pfws Broach Grinder [facility] Work Phone: Start: 12-20-2023 End: 12-20-2023 Patient encounter procedure Pfws Ob Broach Grinder [facility] Obstetrics/Gynecology Comment on above: Encounter for breast and pelvic examination (Primary Dx) Start: 09-24-2023 Telephone encounter Antionette Dorman MD, PhD Work Phone: Gastroenterology Start: 09-24-2023 End: 09-24-2023 ambulatory ANTIONETTE DORMAN Facility:[facility] Start: 09-24-2023 End: 09-24-2023 ambulatory Antionette Dorman MD, PhD Work Phone: Gastroenterology Comment on above: Gastroesophageal ref lux disease without esophagitis (Primary Dx); Slow transit constipation; Dysphagia following nontraumatic intracerebral hemorrhage Start: 09-24-2023 End: 09-24-2023 Telemedicine consultation with patient Antionette Dorman MD, PhD Work Phone: [facility] Start: 09-19-2023 End: 09-20-[address] [facility] Facility:[facility] Start: 09-19-2023 End: 09-19-2023 Lab Drop off ERIBERTO ROVERTO [facility] Start: 08-18-2023 Letter encounter Richi dutton Start: 05-02-2023 End: 05-03-2023 ambulatory ERIBERTO LAYNE Facility:[facility] Start: 05-02-2023 End: 05-02-2023 Patient encounter procedure ERIBERTO LAYNE [facility] Start: 04-26-2023 Telephone encounter Antionette Dorman MD, PhD Work Phone: Gastroenterology Comment on above: Appointment Start: 04-19-2023 Telephone encounter Antionette Dorman MD, PhD Work Phone: Peds Gastroenterology Comment on above: Patient Update Start: 04-09-2023 Telephone encounter Antionette Dorman MD, PhD Work Phone: Gastroenterology Comment on above: Patient Update; Rece ived Outside Medical Records Start: 04-06-2023 End: 04-06-2023 Emergency department patient visit ERIBERTO LAYNE Facility:[facility] Start: 04-06-2023 End: 04-06-2023 ambulatory ANTIONETTE DORMAN Facility:[facility] Start: 04-06-2023 End: 04-06-2023 Patient encounter procedure Antionette Dorman MD, PhD Work Phone: Gastroenterology Comment on above: Slow transit constip ation (Primary Dx); Dehydration; Malnutrition of mild degree (HCC) Start: 04-04-2023 End: 04-04-2023 ambulatory April Garnica Facility:[facility] Start: 04-04-2023 End: 04-04-2023 ambulatory LIDIA Garnica Work Phone: [facility] Work Phone: Start: 04-04-2023 End: 04-04-2023 Departed Referred LIDIA Garnica Work Phone: [facility] [place] Work Phone: Start: 04-03-2023 Telephone encounter Antionette Dorman MD, PhD Work Phone: Gastroenterology Comment on above: Appointment Start: 03-28-2023 End: 03-29-2023 ambulatory DENISE LUCAS Facility:[facility] Start: 01-17-2023 End: 01-18-[address] ERIBERTO LAYNE Facility: Start: 01-05-2023 Telephone encounter Anup Mason Research Coordinator Neuro Stroke Comment on above: Outcomes (90 day mRS ) Start: 12-27-2022 End: 12-27-2022 ambulatory Denise Lucas MD Work Phone: [facility] Comment on above: 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) Start: 12-27-2022 End: 12-27-2022 Telemedicine consultation with patient Denise Lucas MD Work Phone: [facility] Start: 12-25-2022 E-mail encounter kiara m caregiver Denise Lucas MD Work Phone: [facility] Start: 12-25-2022 Patient encounter procedure Denise Lucas MD Work Phone: [facility] Comment on above: Appointment Informat ion Start: 12-12-2022 End: 12-12-2022 ambulatory BELLA SANCHEZ Facility:[facility] Start: 12-12-2022 End: 12-12-2022 ambulatory SUSAN CHAVARRIA Facility:[facility] Start: 12-12-2022 End: 12-12-2022 Subsequent hospital visit by physician Jake [employer] [facility] Work Phone: [facility] Start: 12-12-2022 End: 12-12-2022 Subsequent hospital visit by physician Jake [employer] [facility] Work Phone: [facility] Comment on above: Nontraumatic cortica l hemorrhage of right cerebral hemisphere (HCC) [I61.1] Start: 12-01-2022 Telephone encounter Rayna Weiss RN MRI Q Comment on above: Radiology Pre Proced ure Instructions Start: 11-28-2022 End: 11-28-2022 ambulatory KEITH MCHUGH Facility:[facility] Start: 11-28-2022 End: 11-28-2022 ambulatory Keith Mchugh MD Work Phone: General Surgery Comment on above: Skin breakdown at ga strostomy tube site (HCC) (Primary Dx); S/P Stefanie fundoplication (with gastrostomy tube placement) (HCC) Start: 11-28-2022 End: 11-28-2022 Telemedicine consultation with patient Keith Mchugh MD Work Phone: [facility] Start: 11-27-2022 Telephone encounter Levar Varma RN General Surgery Comment on above: Returning Patient's Call Start: 11-24-2022 Telephone encounter Ava Wade RN M RI Q Comment on above: Radiology Pre Proced ure Instructions Start: 11-23-2022 Telephone encounter Ava Wade RN M RI Q Comment on above: Radiology Pre Proced ure Instructions Start: 11-19-2022 Letter encounter Richi dutton Start: 11-15-2022 End: 11-15-2022 ambulatory Stephane House Facility:[facility] Start: 11-15-2022 End: 11-15-2022 ambulatory MD Stephane House Work Phone: [facility] Work Phone: Start: 11-15-2022 End: 11-15-2022 Departed Referred MD Stephane House Work Phone: [facility] [place] Work Phone: Start: 11-08-2022 Telephone encounter Antionette Dorman MD, PhD Work Phone: Gastroenterology Comment on above: Electronic Communica tion Start: 10-25-2022 End: 10-26-[address] ELEANOR LANGSTON Facility: Start: 10-24-2022 End: 10-24-2022 ambulatory Belinda Crespo SARAN.PARACHUTE REPAIRER Work Phone: [facility] Comment on above: OPENED IN ERROR (Eileen gaby Dx); 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); [place] de Hastings syndrome; Secondary hypertension Start: 10-24-2022 Telemedicine consultation with patient Belinda Crespo APRN.PARACHUTE REPAIRER Work Phone: [facility] Start: 10-24-2022 End: 10-24-2022 Subsequent hospital visit by physician Rc Garza MD Work Phone: Gastroenterology Comment on above: [place] de Hastings sy ndrome [Q87.19] Start: 10-17-2022 ambulatory Belinda David tejeda GOLD MARKER.PARACHUTE REPAIRER Work Phone: [facility] Comment on above: 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) Start: 10-17-2022 Telemedicine consultation with patient Belinda Crespo APRN.PARACHUTE REPAIRER Work Phone: [facility] Start: 10-12-2022 ambulatory Belinda Hernandez n GOLD MARKER.PARACHUTE REPAIRER Work Phone: [facility] Comment on above: 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) Start: 10-12-2022 Telemedicine consultation with patient Belinda Crespo APRN.PARACHUTE REPAIRER Work Phone: [facility] Start: 10-10-2022 ambulatory Belinda Gallova n GOLD MARKER.PARACHUTE REPAIRER Work Phone: [facility] Comment on above: 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) Start: 10-10-2022 Telemedicine consultation with patient Belinda Crespo APRN.PARACHUTE REPAIRER Work Phone: [facility] Start: 10-06-2022 End: 10-06-2022 ambulatory SUSAN CHAVARRIA Facility:[facility] Start: 10-06-2022 End: 10-06-2022 ambulatory ANTIONETTE Gabby DISLAT Facility:[facility] Start: 10-03-2022 ambulatory [facility] GOLD MARKER.PARACHUTE REPAIRER Work Phone: [facility] Comment on above: Oral thrush (Primary Dx) Start: 10-03-2022 Telemedicine consultation with patient Belinda Crespo APRN.PARACHUTE REPAIRER Work Phone: [facility] Start: 09-29-2022 ambulatory Belinda Hernandez n GOLD MARKER.PARACHUTE REPAIRER Work Phone: [facility] Comment on above: 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) Start: 09-29-2022 Telemedicine consultation with patient Belinda Crespo APRN.PARACHUTE REPAIRER Work Phone: [facility] Start: 09-26-2022 ambulatory Belinda Gallova n GOLD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 MEDICATIONS: Current Outpatient Medications Medication Sig Dispense Refill OLANZapine (ZYPREXA) 15 mg tablet 1 tablet by ORAL/FEEDING TUBE route daily at bedtime. acetaminophen (TYLENOL) 325 mg tablet 2 tablets by ORAL/FEEDING TUBE route every 4 hours as needed for pain. aluminum-magnesium hydroxide-simethicone (MAALOX,MYLANTA,MAG-AL PLUS) 200-200-20 mg/5 mL suspension Take 30 mL by mouth every 6 hours as needed. lisinopril (ZESTRIL, PRINIVIL) 5 mg tablet 1 tablet by ORAL/FEEDING TUBE route once daily. melatonin 3 mg tablet 1 tablet by ORAL/FEEDING TUBE route daily at bedtime. ondansetron, PF, (ZOFRAN) 4 mg/2 mL soln Inject 4 mg intravenously every 6 hours as needed. linaCLOtide (LINZESS) 290 mcg capsule Take by mouth once daily. Sodium Fluoride, Dental Rinse, (PREVIDENT) 0.2 % soln by DENTAL route. Use every Sunday at bedtime. montelukast (SINGULAIR) 10 mg tablet sucralfate (CARAFATE) 100 mg/mL suspension Take 10 mL by mouth three times daily before meals. 900 mL 11 docusate sodium (COLACE) 100 mg capsule Take 1 capsule by mouth three times daily. loratadine (CLARITIN) 10 mg tablet Take 1 tablet by mouth once daily as needed for Cold/Allergy Symptoms (for allergy symptoms). 0 MULTIVITAMIN TAB Take one(1) tablet daily. 0 No current facility-administered medications for this visit. Social History: Social History Tobacco Use Smoking status: Never Smokeless tobacco: Never Vaping Use Vaping Use: Never used Substance Use Topics Alcohol use: Never Drug use: Never Medical History: No changes since last visit. REVIEW OF SYSTEMS: GENERAL: weight stable, no fevers. CARDIOVASCULAR: No chest pain, no edema RESPIRATORY: No dyspnea The remainder of the review of systems are negative. Reviewed with patient during visit today. PHYSICAL EXAMINATION: GENERAL APPEARANCE: Well developed and well nourished. Tearing up SKIN: Skin color, texture, turgor normal. No rashes or lesions. EYES: Conjunctiva normal without icterus. OROPHARYNX: lips, mucosa, and tongue normal, teeth and gums normal NECK: Supple, full range of motion, no lymphadenopathy, normal thyroid, LUNGS: Normal breath sounds, Clear to auscultation, No wheezes, No crackles. HEART:Normal PMI, Regular rate and rhythm, Normal heart sounds, S1 and S2 and No murmurs. NEURO: Alert and oriented in no acute distress. ABDOMEN: Normal bowel sounds, abdomen flat with no distention, Soft, minimally tender, no hepatomegaly. no palpable masses, no abdominal bruits, no rebound and no rigidity. No flank tendernss EXTREMITIES:Extremities normal, No deformities, No skin discoloration, No edema . ASSESSMENT/PLAN: (K59.01) Slow transit constipation (primary encounter diagnosis) (E86.0) Dehydration 34 yo with Edwina San, She has history of stefanie and pyloroplasty for pyloric stenosis as with constipation and some feeding difficulties 09/26 she had CVA. At that time peg was placed but it has since been removed by the patient. Her mom notes that for 2 days she is refusing all intake She has been crying with bm for some time. I am going to send her to ER at this point and communicated this with Main ED It is unclear to me at this point if this is a gi process, her exam is not too concerning, but clearly there is something wrong acutely and she has stopped making urine due to dehydration Per mom she always loves to eat so this is sign something is quite wrong when refusing anything by mouth I would expect this will require admission In regards to oropharygeal dysphagia , this is may be more of a chronic issue. I do have concerns that over time may need enteral feeding Her mom was concerned about motility issue 2nd to stefanie, there is not stricture as per last egd. If this is the case, unfortunately in her situation might be again looking at some tube feed (more content not included)... [facility] 04-06-2023 History of Presen t illness Narrative EST PT OFFICE VISIT Patient states, not eating well last few days.increase burping. Pain with Bms. Regular stool appearance. No bleeding. CC: Patient presents with: Established Patient Follow-Up: F/u Slow transit constipation Ms. Scruggs is here today for follow-up of: constipation. Mom says she is having a lot of pain Has pain with bm and cries Also burping a lot Was doing ok when she saw nuerologist The burping is bizarre After that is going on Is not wanting to eat Today her mom gave her some water and she is refusing to swallow then drying She is refusing to eat Worried about not swallowing Her peg is out She took the peg out twice and they tried to put it back in then she pulled it out Then she was eating well Not sure what is going on Crying and burping VITALS: Blood pressure 126/90, pulse 92, last menstrual period 04/01/2011. ALLERGIES: Lactose MEDICATIONS: Current Outpatient Medications Medication Sig Dispense Refill OLANZapine (ZYPREXA) 15 mg tablet 1 tablet by ORAL/FEEDING TUBE route daily at bedtime. acetaminophen (TYLENOL) 325 mg tablet 2 tablets by ORAL/FEEDING TUBE route every 4 hours as needed for pain. aluminum-magnesium hydroxide-simethicone (MAALOX,MYLANTA,MAG-AL PLUS) 200-200-20 mg/5 mL suspension Take 30 mL by mouth every 6 hours as needed. lisinopril (ZESTRIL, PRINIVIL) 5 mg tablet 1 tablet by ORAL/FEEDING TUBE route once daily. melatonin 3 mg tablet 1 tablet by ORAL/FEEDING TUBE route daily at bedtime. ondansetron, PF, (ZOFRAN) 4 mg/2 mL soln Inject 4 mg intravenously every 6 hours as needed. linaCLOtide (LINZESS) 290 mcg capsule Take by mouth once daily. Sodium Fluoride, Dental Rinse, (PREVIDENT) 0.2 % soln by DENTAL route. Use every Sunday at bedtime. montelukast (SINGULAIR) 10 mg tablet sucralfate (CARAFATE) 100 mg/mL suspension Take 10 mL by mouth three times daily before meals. 900 mL 11 docusate sodium (COLACE) 100 mg capsule Take 1 capsule by mouth three times daily. loratadine (CLARITIN) 10 mg tablet Take 1 tablet by mouth once daily as needed for Cold/Allergy Symptoms (for allergy symptoms). 0 MULTIVITAMIN TAB Take one(1) tablet daily. 0 No current facility-administered medications for this visit. Social History: Social History Tobacco Use Smoking status: Never Smokeless tobacco: Never Vaping Use Vaping Use: Never used Substance Use Topics Alcohol use: Never Drug use: Never Medical History: No changes since last visit. REVIEW OF SYSTEMS: GENERAL: weight stable, no fevers. CARDIOVASCULAR: No chest pain, no edema RESPIRATORY: No dyspnea The remainder of the review of systems are negative. Reviewed with patient during visit today. PHYSICAL EXAMINATION: GENERAL APPEARANCE: Well developed and well nourished. Tearing up SKIN: Skin color, texture, turgor normal. No rashes or lesions. EYES: Conjunctiva normal without icterus. OROPHARYNX: lips, mucosa, and tongue normal, teeth and gums normal NECK: Supple, full range of motion, no lymphadenopathy, normal thyroid, LUNGS: Normal breath sounds, Clear to auscultation, No wheezes, No crackles. HEART:Normal PMI, Regular rate and rhythm, Normal heart sounds, S1 and S2 and No murmurs. NEURO: Alert and oriented in no acute distress. ABDOMEN: Normal bowel sounds, abdomen flat with no distention, Soft, minimally tender, no hepatomegaly. no palpable masses, no abdominal bruits, no rebound and no rigidity. No flank tendernss EXTREMITIES:Extremities normal, No deformities, No skin discoloration, No edema . ASSESSMENT/PLAN: (K59.01) Slow transit constipation (primary encounter diagnosis) (E86.0) Dehydration 34 yo with Edwina San, She has history of stefanie and pyloroplasty for pyloric stenosis as with constipation and some feeding difficulties 09/26 she had CVA. At that time peg was placed but it has since been removed by the patient. Her mom notes that for 2 days she is refusing all intake She has been crying with bm for some time. I am going to send her to ER at this point and communicated this with Main ED It is unclear to me at this point if this is a gi process, her exam is not too concerning, but clearly there is something wrong acutely and she has stopped making urine due to dehydration Per mom she always loves to eat so this is sign something is quite wrong when refusing anything by mouth I would expect this will require admission In regards to oropharygeal dysphagia , this is may be more of a chronic issue. I do have concerns that over time may need enteral feeding Her mom was concerned about motility issue 2nd to stefanie, there is not stricture as per last egd. If this is the case, unfortunately in her situation might be again looking at some tube feedings Antionette Dorman MD, PhD documented in this encounter [facility] 04-05-2023 Miscellaneous Notes Called and offered Quin on voicemail 05/01/23 virtual visit, and explained that a virtual visit is not possible at [facility]. Instructed Quin to call the office if interested in virtual visit on 05/01/23. [phone]. Antionette Haley RN I cannot easily change [place] appointments to virtual It does not work with the 20 patient schedule They could reschedule to 05/01 Patient mom, Quin called and would like to change appointment to a virtual visit. She can be reached at [phone]. Ronda Higginbotham Ma documented in this encounter [facility] 03-28-2023 Note HNO ID: [id number] Author: Denise Lucas MD Service: ? 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 I spoke to the patient's parents Almaz via video visit on 12/28/22. She is here today accompanied by her parents. Per discharge summary dated 09/22/22: MARGARITA 09/04/2022 evening/night. Mother dropped her off at the detention, and she was able to ambulate on her own.On the morning of 09/05/2022, her LLE was noted to be weak. She was noticed to be limping. Later in the day, her LUE was noted to be weak as well. Taken to [facility] ED and found to have a R sided pontine hypodensity on CTH, concerning of IPH (ICH score 2, infratentorial + GCS). Transferred to [facility] ICU for further care. Mother denies patient had past Hx of known vasculopathy, uncontrolled BP, strokes or seizures. No use of AC or AP.Initial NIHSS was 19 significant for 2 for questions, 2 for commands, 4 for motor LUE, 4 for motor LLE, 2 for motor RLE, 3 for aphasia, 2 for dysarthria...Patient did not require coagulation reversal...Repeat CTH non contrast showed stable hemorrhage and CTA head and neck was done for vessel imaging showed no vascular abnormality to cause hemorrhage. MRI brain w/wo contrast was done under anesthesia and was significant for stable pontine hemorrhage with no underlying enhancing mass/lesion or ischemic stroke noted. Further vessel imaging was done with a cerebral angiogram showing no vascular malformation to explain hemorrhage. Etiology of hemorrhage was felt to be hypertensive vs possible cavernous malformation. Interval history: - Per parents, Cheryl seems to be doing well overall. She has regained function in her LUE and is ambulating without assistance. They are noticing some behavioral changes like her hitting her head. Unclear if this is associated with pain. She also has episodes of frequent R eye blinking. Eats a pureed diet, not on PEG as she removed it twice. Less episodes of tightening her lips. BP have when well controlled when checked at her extended care facility. Parents are not reporting any new neurologic symptoms. She is no longer on aspirin. Reason for Visit: cerebral hemorrhage Date of Last Event: 09/05/2022 Residual Deficits: Left-sided weakness Current Living Situation: Extended care MEDICATIONS Current Outpatient Medications Medication Sig OLANZapine (ZYPREXA) 15 mg tablet 1 tablet by ORAL/FEEDING TUBE route daily at bedtime. acetaminophen (TYLENOL) 325 mg tablet 2 tablets by ORAL/FEEDING TUBE route every 4 hours as needed for pain. aluminum-magnesium hydroxide-simethicone (MAALOX,MYLANTA,MAG-AL PLUS) 200-200-20 mg/5 mL suspension Take 30 mL by mouth every 6 hours as needed. lisinopril (ZESTRIL, PRINIVIL) 5 mg tablet 1 tablet by ORAL/FEEDING TUBE route once daily. melatonin 3 mg tablet 1 tablet by ORAL/FEEDING TUBE route daily at bedtime. ondansetron, PF, (ZOFRAN) 4 mg/2 mL soln Inject 4 mg intravenously every 6 hours as needed. linaCLOtide (LINZESS) 290 mcg capsule Take by mouth once daily. Sodium Fluoride, Dental Rinse, (PREVIDENT) 0.2 % soln by DENTAL route. Use every Sunday at bedtime. montelukast (SINGULAIR) 10 mg tablet sucralfate (CARAFATE) 100 mg/mL suspension Take 10 mL by mouth three times daily before meals. docusate sodium (COLACE) 100 mg capsule Take 1 capsule by mouth three times daily. loratadine (CLARITIN) 10 mg tablet Take 1 tablet by mouth once daily as needed for Cold/Allergy Symptoms (for allergy symptoms). MULTIVITAMIN TAB Take one(1) tablet daily. No current facility-administered medications for this visit. ALLERGIES Allergen Reactions Lactose Diarrhea, GI Upset EXAM BP 121/76 Pulse 78 Temp (Src) 97.2 (Temporal) Resp 14 Ht 4' 5 (1.35m) Wt 80 lb (36.3kg) SpO2 100% LMP 04/01/2011 BMI 20.03 kg/(m2). General: Sitting in chair and standing up and ambulating, short stature limited eye contact HEENT:Dysmorphic features with hypotelorism and micrognathia Lungs: Normal work of breathing in room air. Extremities: No edema, cyanosis, or clubbing. Neurological: Awake, limited eye contact, restless, non-verbal and not following commands, moving all extremities spontaneously, purposefully and antigravity, no facial asymmetry noted, gaze midline, no abnormal movement noted, normal tone, did not test sensation to noxious stimuli for patient comfort. Gait appears stable. LABS Cholesterol: No results found for: CHOL No results found for: LDL No results found for: HDL No results found for: TG Diabetes: Hemoglobin A1C (%) Date Value 09/05/2022 5.0 IMAGING No new imaging to r (more content not included)... [facility] 01-05-2023 Miscellaneous Notes MODIFIED LADONNA SCORE POST-DISCHARGE Telephone Visit Patient Name: Cheryl Scruggs Today's date: January 05, 2023 Date of discharge: September 22, 2022 Person giving information: Chart Review Contact information: N/A Contact attempt: #3 Patient discharge location: Acute Rehab Patient current location: Home Presentation to ED or readmission after discharge: Yes Modified [place] Score: 90 days post discharge: 2 = Slight disability. Unable to carry out all previous activities but able to look after own affairs w/o assistance. Mortality: No Signature: Anup Hernandez January 05, 2023 10:27 AM documented in this encounter [facility] 12-27-2022 Note HNO ID: [id number] Author: Denise Lucas MD Service: ? Author Type: Physician Type: Progress Notes Filed: 12/28/2022 12:28 PM Note Text: [facility] Virtual Visit Consultation is requested by: Niya Landaverde [address] [facility] [address] PCP: Eriberto Layne DO [address] [place] [address] CEREBROVASCULAR HISTORY Cheryl Scruggs is a 37 year old female with a 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 Per discharge summary dated 09/22/22: LKW 09/04/2022 evening/night. Mother dropped her off at the detention, and she was able to ambulate on her own.On the morning of 09/05/2022, her LLE was noted to be weak. She was noticed to be limping. Later in the day, her LUE was noted to be weak as well. Taken to [facility] ED and found to have a R sided pontine hypodensity on CTH, concerning of IPH (ICH score 2, infratentorial + GCS). Transferred to [facility] ICU for further care. Mother denies patient had past Hx of known vasculopathy, uncontrolled BP, strokes or seizures. No use of AC or AP.Initial NIHSS was 19 significant for 2 for questions, 2 for commands, 4 for motor LUE, 4 for motor LLE, 2 for motor RLE, 3 for aphasia, 2 for dysarthria...Patient did not require coagulation reversal...Repeat CTH non contrast showed stable hemorrhage and CTA head and neck was done for vessel imaging showed no vascular abnormality to cause hemorrhage. MRI brain w/wo contrast was done under anesthesia and was significant for stable pontine hemorrhage with no underlying enhancing mass/lesion or ischemic stroke noted. Further vessel imaging was done with a cerebral angiogram showing no vascular malformation to explain hemorrhage. Etiology of hemorrhage was felt to be hypertensive vs possible cavernous malformation. Interval history: - Patient was not seen by video today (facility had trouble logging into to video session). I spoke to patient's parents Bobby and Quin. Per parents, Cheryl seems to be doing well overall. Per mom, walking is going well and she still has LUE weakness but seems to be using her hand a lot more. She has less vocalizations than prior. She has episodes of tightening of her lips which she has not had before. Reason for Visit: cerebral hemorrhage Date of Last Event: 09/05/2022 Residual Deficits: Left-sided weakness Current Living Situation: Extended care MEDICATIONS Current Outpatient Medications Medication Sig OLANZapine (ZYPREXA) 15 mg tablet 1 tablet by ORAL/FEEDING TUBE route daily at bedtime. acetaminophen (TYLENOL) 325 mg tablet 2 tablets by ORAL/FEEDING TUBE route every 4 hours as needed for pain. aluminum-magnesium hydroxide-simethicone (MAALOX,MYLANTA,MAG-AL PLUS) 200-200-20 mg/5 mL suspension Take 30 mL by mouth every 6 hours as needed. lisinopril (ZESTRIL, PRINIVIL) 5 mg tablet 1 tablet by ORAL/FEEDING TUBE route once daily. melatonin 3 mg tablet 1 tablet by ORAL/FEEDING TUBE route daily at bedtime. ondansetron, PF, (ZOFRAN) 4 mg/2 mL soln Inject 4 mg intravenously every 6 hours as needed. linaCLOtide (LINZESS) 290 mcg capsule Take by mouth once daily. Sodium Fluoride, Dental Rinse, (PREVIDENT) 0.2 % soln by DENTAL route. Use every Sunday at bedtime. montelukast (SINGULAIR) 10 mg tablet sucralfate (CARAFATE) 100 mg/mL suspension Take 10 mL by mouth three times daily before meals. docusate sodium (COLACE) 100 mg capsule Take 1 capsule by mouth three times daily. loratadine (CLARITIN) 10 mg tablet Take 1 tablet by mouth once daily as needed for Cold/Allergy Symptoms (for allergy symptoms). MULTIVITAMIN TAB Take one(1) tablet daily. No current facility-administered medications for this visit. ALLERGIES Allergen Reactions Lactose Diarrhea, GI Upset EXAM Not obtained. LABS Cholesterol: No results found for: CHOL No results found for: LDL No results found for: HDL No results found for: TG Diabetes: Hemoglobin A1C (%) Date Value 09/05/[address]/CTA and MRI reviewed. MRI 12/12/22 also reviewed. Patient Entered Questionnaires Health Status Change Since Last Visit 12/11/2022 10/02/2022 Change Minimally improved Minimally improved PROMIS/NeuroQoL Score Percentiles Physical Health 12/11/2022 10/02/2022 Physical Function Percentile 0 0 Sleep Percentile 50 34 Fatigue Percentile 31 1 Pain Interference Percentile 50 10 PROMIS SOCIAL ROLE SCORE 12/11/2022 10/02/2022 Social Role Satisfaction Percentile 8 2 Mental Health 12/11/2022 10/02/2022 NeuroQol Cognitive Function Percentile 3 0 General Self-Efficacy Percentile 0 0 PROMIS Global Health Scale 10/02/2022 Physical Health Percentile 2 Mental Health Percentile 3 Percentiles provide an indication of how a patient's score ranks in (more content not included)... 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 Per discharge summary dated 09/22/22: LKW 09/04/2022 evening/night. Mother dropped her off at the detention, and she was able to ambulate on her own.On the morning of 09/05/2022, her LLE was noted to be weak. She was noticed to be limping. Later in the day, her LUE was noted to be weak as well. Taken to [facility] ED and found to have a R sided pontine hypodensity on CTH, concerning of IPH (ICH score 2, infratentorial + GCS). Transferred to [facility] ICU for further care. Mother denies patient had past Hx of known vasculopathy, uncontrolled BP, strokes or seizures. No use of AC or AP.Initial NIHSS was 19 significant for 2 for questions, 2 for commands, 4 for motor LUE, 4 for motor LLE, 2 for motor RLE, 3 for aphasia, 2 for dysarthria...Patient did not require coagulation reversal...Repeat CTH non contrast showed stable hemorrhage and CTA head and neck was done for vessel imaging showed no vascular abnormality to cause hemorrhage. MRI brain w/wo contrast was done under anesthesia and was significant for stable pontine hemorrhage with no underlying enhancing mass/lesion or ischemic stroke noted. Further vessel imaging was done with a cerebral angiogram showing no vascular malformation to explain hemorrhage. Etiology of hemorrhage was felt to be hypertensive vs possible cavernous malformation. Interval history: - Patient was not seen by video today (facility had trouble logging into to video session). I spoke to patient's parents Bobby and Quin. Per parents, Cheryl seems to be doing well overall. Per mom, walking is going well and she still has LUE weakness but seems to be using her hand a lot more. She has less vocalizations than prior. She has episodes of tightening of her lips which she has not had before. Reason for Visit: cerebral hemorrhage Date of Last Event: 09/05/2022 Residual Deficits: Left-sided weakness Current Living Situation: Extended care MEDICATIONS Current Outpatient Medications Medication Sig OLANZapine (ZYPREXA) 15 mg tablet 1 tablet by ORAL/FEEDING TUBE route daily at bedtime. acetaminophen (TYLENOL) 325 mg tablet 2 tablets by ORAL/FEEDING TUBE route every 4 hours as needed for pain. aluminum-magnesium hydroxide-simethicone (MAALOX,MYLANTA,MAG-AL PLUS) 200-200-20 mg/5 mL suspension Take 30 mL by mouth every 6 hours as needed. lisinopril (ZESTRIL, PRINIVIL) 5 mg tablet 1 tablet by ORAL/FEEDING TUBE route once daily. melatonin 3 mg tablet 1 tablet by ORAL/FEEDING TUBE route daily at bedtime. ondansetron, PF, (ZOFRAN) 4 mg/2 mL soln Inject 4 mg intravenously every 6 hours as needed. linaCLOtide (LINZESS) 290 mcg capsule Take by mouth once daily. Sodium Fluoride, Dental Rinse, (PREVIDENT) 0.2 % soln by DENTAL route. Use every Sunday at bedtime. montelukast (SINGULAIR) 10 mg tablet sucralfate (CARAFATE) 100 mg/mL suspension Take 10 mL by mouth three times daily before meals. docusate sodium (COLACE) 100 mg capsule Take 1 capsule by mouth three times daily. loratadine (CLARITIN) 10 mg tablet Take 1 tablet by mouth once daily as needed for Cold/Allergy Symptoms (for allergy symptoms). MULTIVITAMIN TAB Take one(1) tablet daily. No current facility-administered medications for this visit. ALLERGIES Allergen Reactions Lactose Diarrhea, GI Upset EXAM Not obtained. LABS Cholesterol: No results found for: CHOL No results found for: LDL No results found for: HDL No results found for: TG Diabetes: Hemoglobin A1C (%) Date Value 09/05/[address]/CTA and MRI reviewed. MRI 12/12/22 also reviewed. Patient Entered Questionnaires Health Status Change Since Last Visit 12/11/2022 10/02/2022 Change Minimally improved Minimally improved PROMIS/NeuroQoL Score Percentiles Physical Health 12/11/2022 10/02/2022 Physical Function Percentile 0 0 Sleep Percentile 50 34 Fatigue Percentile 31 1 Pain Interference Percentile 50 10 PROMIS SOCIAL ROLE SCORE 12/11/2022 10/02/2022 Social Role Satisfaction Percentile 8 2 Mental Health 12/11/2022 10/02/2022 NeuroQol Cognitive Function Percentile 3 0 General Self-Efficacy Percentile 0 0 PROMIS Global Health Scale 10/02/2022 Physical Health Percentile 2 Mental Health Percentile 3 Percentiles provide an indication of how a patient's score ranks in relation to the [place] general population. > 31st percentile is within normal limits or better * < 31st percentile is at least SD worse than population, which may be clinically relevant < 16th percentile is at least 1 SD worse than population and warrants attention Depression Screening: PHQ-9 12/11/2022 12/11/2022 12/11/2022 Score 1 1 1 Self-Harm Response 0 0 0 PHQ-9 Scores: PHQ-9 Self-Harm (Item 9) Response: 0 - 9 No to Mild depression 0 - Not at all 10 - 14 Moderate depression 1 - Several Days > 15 Severe depression 2 - More than half the days 3 - Nearly every day Sleep Apnea Probability Score 10/02/2022 Sleep Apnea Screen V2 5 (Sleep study not recommended) Stroke Mechanism and Scales Intracranial Hemorrhage: Intraparenchymal Intraparenchymal Hemorrhage: Unknown Stroke Mechanism 09/05/2022 Intracranial Hemorrhage Intraparenchymal Intraparenchymal Hemorrhage Other Level of Certainty Possible IMPRESSION R pontine ICH, unknown etiology Cheryl Scruggs is a 37 year old female with a 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 Possible hypertension is underlying etiology but she was not significantly hypertensive. No underlying vascular malformation seen on CTA/angio and repeat MRI without evidence of underlying mass or enhancement. PLAN Continue blood pressure control and monitoring, continue lisinopril, BP goal <140/90 Parents report patient is on aspirin, I do not see this listed in her medication list, I advised this be discontinued given her hx of ICH, given no clear indication for her to be on it I advised parents to monitor and take video of episodes where she is tightening her lips for evaluation CARDIAC SPECIALIST re-evaluation Follow up in 3 months. Patient was not seen during this virtual visit. I reviewed the MRI and discussed the plan of care with the patient's legal guardians (parents). Discussion, counseling, coordination of care > 50% of 30 minutes. Questions asked/ answered. Follow-up with results/ adherence to plan/ continued education. SIGNATURE JAZMÍN [facility], MSc Staff, Vascular Neurology December 28, 2022 12:25 PM CC Niya Landaverde [address] [facility] [address] [address] [place] [address] documented in this encounter [facility] 12-12-2022 Note HNO ID: [id number] Author: Jorydn Licea APRN.NICKING MACHINE OPERATOR Service: ? Author Type: Nurse Tow Motor Driver Type: Anesthesia Procedure Notes Filed: 12/12/2022 1:42 PM Note Text: ANESTHESIOLOGY PROCEDURE NOTE Airway General Information Procedure Start Time/Medication Administration: 12/12/2022 1:30 PM Patient location during procedure: induction room Consent Obtained: Yes Staffing NICKING MACHINE OPERATOR: Jordyn Licea APRN.NICKING MACHINE OPERATOR Performed by: NICKING MACHINE OPERATOR Indications and Patient Condition Indications for airway management: anesthesia Preoxygenated: yes Final Airway Details Final airway type: supraglottic airway Final Supraglottic Airway: i-gel Size 3 Seal Adequate: yes Airway not difficult SIGNATURE: Jordyn Licea APRN.NICKING MACHINE OPERATOR PATIENT NAME: Cheryl Scruggs DATE: December 12, 2022 TIME: 1:41 PM CSN: [id number] [facility] 12-12-2022 Note HNO ID: [id number] Author: RT Isabel(Gabby) Service: Radiology Author Type: Technologist Type: Progress Notes Filed: 12/12/2022 1:50 PM Note Text: Radiology Service Progress Note PATIENT NAME: Cheryl Scruggs DATE OF SERVICE: December 12, 2022 TIME: 1:49 PM PATIENT IDENTITY VERIFICATION COMPLETED USING TWO (2) IDENTIFIERS: Name and Date of confirmed by patient verbally and Name and Date of confirmed by identification band. FALL SCREENING: Has the patient had 2 falls in the last year or 1 fall with injury or currently using an Ambulatory Assistive Device (Walker, Cane, Wheelchair, Crutches, etc.)? Yes, Patient High Risk for Falls What interventions were put in place to prevent falls during this visit? Non-Skid Socks Used, Yellow Falls Risk Wristband Applied, and Increased Observations by Caregivers PATIENT GENDER DATA: Female. status: : No status: NO. PATIENT RELEVANT IMPLANT DATA REVIEWED: Yes RADIOLOGY DEPARTMENT: MR; Exam(s) Completed: Head: Routine Brain PERIPHERAL IV DATA: Site assessment: Clean,Dry and Intact, Site disposition Discontinued SIGNED BY: RT Isabel(R) December 12, 2022 1:49 PM [facility] 12-12-2022 Note HNO ID: [id number] Author: Ava Wade RN Service: Nursing Author Type: Registered Nurse Type: Progress Notes Filed: 12/12/2022 1:05 PM Note Text: Radiology Service Progress Note DATE OF SERVICE: December 12, 2022 TIME: 1:03 PM PATIENT WEIGHT: 75LBS PATIENT IDENTITY VERIFICATION COMPLETED USING TWO (2) STANDARD IDENTIFIERS: Name and Date of confirmed by patient verbally and Name and Date of confirmed by identification band. FALL SCREENING: Has the patient had 2 falls in the last year or 1 fall with injury or currently using an Ambulatory Assistive Device (Walker, Cane, Wheelchair, Crutches, etc.)? Yes, Patient High Risk for Falls What interventions were put in place to prevent falls during this visit? Non-Skid Socks Used and Yellow Falls Risk Wristband Applied PATIENT GENDER DATA: Female. status: : No status: NO. ALLERGIES: Reviewed and unchanged CONTRAST ALLERGY: No EXAM: MRI - CONTRAST TYPE: GROUP II IV SITE: Ambulatory: A peripheral IV was started in the Right hand with a Angio cath: 22 gauge. and A Saline lock was inserted per protocol IV SITE APPEARANCE: Clean,Dry and Intact Radiology Service Progress Note PATIENT NAME: Cheryl Scruggs DATE OF SERVICE: December 12, 2022 TIME: 1:04 PM PATIENT IDENTITY VERIFICATION COMPLETED USING TWO (2) STANDARD IDENTIFIERS: Name and Date of confirmed by patient verbally and Name and Date of confirmed by identification band. PATIENT GENDER DATA: Female. status: : No status: NO. PATIENT RELEVANT IMPLANT DATA REVIEWED: Yes ALLERGIES: Reviewed and unchanged MEDICATIONS REVIEWED: YES IV SITE: see note PERIPHERAL IV ACCESS: Discontinued ANXIOLYSIS/ANESTHESIA: Please see Outpatient Preoperative Nursing Care Record and Anesthesia Record for further details. PATIENT DISCHARGED TO: Home/Self Care SIGNED BY: Ava Wade RN December 12, 2022 1:04 PM SIGNATURE: Ava Wade RN PATIENT NAME: Cheryl Scruggs DATE: December 12, 2022 TIME: 1:03 PM [facility] 12-12-2022 History of Presen t illness Narrative Radiology Service Progress Note PATIENT NAME: Cheryl Scruggs DATE OF SERVICE: December 12, 2022 TIME: 1:49 PM PATIENT IDENTITY VERIFICATION COMPLETED USING TWO (2) IDENTIFIERS: Name and Date of confirmed by patient verbally and Name and Date of confirmed by identification band. FALL SCREENING: Has the patient had 2 falls in the last year or 1 fall with injury or currently using an Ambulatory Assistive Device (Walker, Cane, Wheelchair, Crutches, etc.)? Yes, Patient High Risk for Falls What interventions were put in place to prevent falls during this visit? Non-Skid Socks Used, Yellow Falls Risk Wristband Applied, and Increased Observations by Caregivers PATIENT GENDER DATA: Female. status: : No status: NO. PATIENT RELEVANT IMPLANT DATA REVIEWED: Yes RADIOLOGY DEPARTMENT: MR; Exam(s) Completed: Head: Routine Brain PERIPHERAL IV DATA: Site assessment: Clean,Dry and Intact, Site disposition Discontinued SIGNED BY: RT Isabel(R) December 12, 2022 1:49 PM documented in this encounter [facility] 12-12-2022 History of Presen t illness Narrative Radiology Service Progress Note DATE OF SERVICE: December 12, 2022 TIME: 1:03 PM PATIENT WEIGHT: 75LBS PATIENT IDENTITY VERIFICATION COMPLETED USING TWO (2) STANDARD IDENTIFIERS: Name and Date of confirmed by patient verbally and Name and Date of confirmed by identification band. FALL SCREENING: Has the patient had 2 falls in the last year or 1 fall with injury or currently using an Ambulatory Assistive Device (Walker, Cane, Wheelchair, Crutches, etc.)? Yes, Patient High Risk for Falls What interventions were put in place to prevent falls during this visit? Non-Skid Socks Used and Yellow Falls Risk Wristband Applied PATIENT GENDER DATA: Female. status: : No status: NO. ALLERGIES: Reviewed and unchanged CONTRAST ALLERGY: No EXAM: MRI - CONTRAST TYPE: GROUP II IV SITE: Ambulatory: A peripheral IV was started in the Right hand with a Angio cath: 22 gauge. and A Saline lock was inserted per protocol IV SITE APPEARANCE: Clean,Dry and Intact Radiology Service Progress Note PATIENT NAME: Cheryl Scruggs DATE OF SERVICE: December 12, 2022 TIME: 1:04 PM PATIENT IDENTITY VERIFICATION COMPLETED USING TWO (2) STANDARD IDENTIFIERS: Name and Date of confirmed by patient verbally and Name and Date of confirmed by identification band. PATIENT GENDER DATA: Female. status: : No status: NO. PATIENT RELEVANT IMPLANT DATA REVIEWED: Yes ALLERGIES: Reviewed and unchanged MEDICATIONS REVIEWED: YES IV SITE: see note PERIPHERAL IV ACCESS: Discontinued ANXIOLYSIS/ANESTHESIA: Please see Outpatient Preoperative Nursing Care Record and Anesthesia Record for further details. PATIENT DISCHARGED TO: Home/Self Care SIGNED BY: Ava Wade RN December 12, 2022 1:04 PM SIGNATURE: Ava Wade RN PATIENT NAME: Cheryl Scruggs DATE: December 12, 2022 TIME: 1:03 PM documented in this encounter [facility] 12-01-2022 Miscellaneous Notes Radiology Service Pre Anesthesia Telephone Call PATIENT NAME: Cheryl Scruggs DATE OF CALL: December 01, 2022 TIME: 11:25 AM PATIENT TYPE: Adult patient 1. Has the patient ever had an MRI scan before? Yes, can't hold still 2. Does the patient have any implanted devices? no If yes, notify patient that additional follow up will be required., It is required that the patient have a current history and physical within 30 days of the scheduled appointment., 3. Has the patient had a history and physical within this 30 day period? Yes. Make sure have copy is faxed [facility] if not [facility] provider., 4. Diet instructions given. Yes. No solids for 8 hours prior to exam. Patient may take medications with sips of water., 5. Has the patient had lab work within the last 6 months? Yes, 6. Is the patient diabetic? No, 7. Is the patient taking pain medication? No, 8. Parking and Check-in instructions given? Yes, 9. Does the patient have a feeder driver to take them home? Yes, 10. Spoke with patient: No, spoke with JUVE Escalante [facility], and All of the patient's questions were addressed and answered. Patient verbalized understanding. Call back number provided for any future questions. Left VM with mom and dad regarding appointment time and location. SIGNED BY: Rayna Weiss RN December 01, 2022 11:25 AM documented in this encounter [facility] 11-28-2022 Note HNO ID: [id number] Author: Keith Mchugh MD Service: ? Author Type: Physician Type: Progress Notes Filed: 11/28/2022 11:27 AM Note Text: VIRTUAL VISIT FOLLOW UP I had a virtual visit with Ms. Scruggs today for follow up of gastrostomy tube UPDATED HISTORY: Cheryl Scruggs is a 37 year old female who presents virtually in conjunction with caregiver. Briefly she is a 37-year-old female with a past medical history of gastroesophageal reflux disease status post Stefanie fundoplication at age 2, and recent hospitalization for acute intraparenchymal hemorrhage of the brain, in the setting of chronic vomiting syndrome. During the course of that admission she had a nasoenteric feeding tube that was placed, this was subsequently converted to a gastrostomy tube using a pull technique. Tube is a 20 Trinidadian bumper externally removable tube which was placed in conjunction with 3 T-fasteners. On chart review the gastrostomy tube was inadvertently pulled out on 10/24, this was replaced with a temporary 10Fr Clark tube, which was subsequently removed on 10/26. Patient has now been without a tube since that point, most recent gastroenterology note documents that she has been eating well. The site has been healing slowly. There was some pink tissue noted then the clark was removed. There is still some drainage, this is described as scant and yellow-clear in color. Some days there is no drainage. PAST MEDICAL HISTORY Diagnosis Date Anemia Cholelithiasis Edwina de Hastings syndrome GERD (gastroesophageal reflux disease) Hypertension Pyloric stenosis Stroke (HCC) PAST SURGICAL HISTORY Procedure Laterality Date ESOPHAGOGASTRIC FUNDOPLASTY FAMILY HISTORY Problem Relation Age of Onset Headache Mother migraine Headache Maternal Aunt migraine Seizures Maternal Uncle Developmental problem Maternal Uncle MRDD Coronary Artery Disease Maternal Grandmother Hypertension Maternal Grandmother Coronary Artery Disease Maternal Uncle Hypertension Maternal Uncle GI Maternal Aunt GERD Social History Tobacco Use Smoking status: Never Smokeless tobacco: Never Vaping Use Vaping Use: Never used Substance Use Topics Alcohol use: Never Drug use: Never I personally reviewed and updated review of systems and history is obtained by others Review of systems is negative apart from those above PHYSICAL FINDINGS OF NOTE: General - Healthy, cooperative, in no acute distress Able to interact verbally by video conference Pulmonary - respiratory effort normal Abdominal - Performed Nondistended, flat, gastrostomy tube site is in the left upper quadrant in a skin crease, there is a small amount of pretreatment pink/red tissue, most likely either ectopic gastric mucosa or granulation tissue , Visible protrusions or hernias: No Incisions/scars: small amount of granulation tissue present , Areas of pain/tenderness: denies Motor - patient seen sitting with Normal appearing strength and coordination Medical Decision Making: Assessment Assessment AND Diagnosis: Cheryl Scruggs is a 37 year old female with a history of Edwina de Hastings syndrome, recent intraparenchymal hemorrhage and gastrostomy tube placement as an inpatient in September 2022. Tube was subsequently removed. The wound has the appearance of either having gastric Koza, or granulation tissue. As the wound continues to heal from the bottom up this likely will resolve itself. Data Reviewed: Tests AND Documents Reviewed/ordered: Review of prior notes from gastroenterology Review of prior operative reports I have independently interpreted: None I have discussed Cheryl Scruggs's treatment plan and/or results with patient. Current caregiver team. Treatment plan: -Continue to dress the site with dry sterile gauze -If bleeding develops, this most likely indicates that his granulation tissue, which can be treated in the office with silver nitrate application. -I would not recommend sutures to close the site, as this will likely to abscess formation. Risk of morbidity, mortality and/or complications of treatment plan: low I spent a total of 15 minutes on the date of the service which included preparing to see the patient, [id number] patient care, completing clinical documentation, obtaining and/or reviewing separately obtained history, performing a medically appropriate examination, counseling and educating the patient/family/caregiver, and communicating results to the patient/family/caregiver. Keith Mchugh MD 11/28/2022 [facility] 11-28-2022 History of Presen t illness Narrative VIRTUAL VISIT FOLLOW UP I had a virtual visit with Ms. Scruggs today for follow up of gastrostomy tube UPDATED HISTORY: Cheryl Scruggs is a 37 year old female who presents virtually in conjunction with caregiver. Briefly she is a 37-year-old female with a past medical history of gastroesophageal reflux disease status post Stefanie fundoplication at age 2, and recent hospitalization for acute intraparenchymal hemorrhage of the brain, in the setting of chronic vomiting syndrome. During the course of that admission she had a nasoenteric feeding tube that was placed, this was subsequently converted to a gastrostomy tube using a pull technique. Tube is a 20 Trin[place] bumper externally removable tube which was placed in conjunction with 3 T-fasteners. On chart review the gastrostomy tube was inadvertently pulled out on 10/24, this was replaced with a temporary 10Fr Clark tube, which was subsequently removed on 10/26. Patient has now been without a tube since that point, most recent gastroenterology note documents that she has been eating well. The site has been healing slowly. There was some pink tissue noted then the clark was removed. There is still some drainage, this is described as scant and yellow-clear in color. Some days there is no drainage. PAST MEDICAL HISTORY Diagnosis Date Anemia Cholelithiasis Edwina de Hastings syndrome GERD (gastroesophageal reflux disease) Hypertension Pyloric stenosis Stroke (HCC) PAST SURGICAL HISTORY Procedure Laterality Date ESOPHAGOGASTRIC FUNDOPLASTY FAMILY HISTORY Problem Relation Age of Onset Headache Mother migraine Headache Maternal Aunt migraine Seizures Maternal Uncle Developmental problem Maternal Uncle MRDD Coronary Artery Disease Maternal Grandmother Hypertension Maternal Grandmother Coronary Artery Disease Maternal Uncle Hypertension Maternal Uncle GI Maternal Aunt GERD Social History Tobacco Use Smoking status: Never Smokeless tobacco: Never Vaping Use Vaping Use: Never used Substance Use Topics Alcohol use: Never Drug use: Never I personally reviewed and updated review of systems and history is obtained by others Review of systems is negative apart from those above PHYSICAL FINDINGS OF NOTE: General - Healthy, cooperative, in no acute distress Able to interact verbally by video conference Pulmonary - respiratory effort normal Abdominal - Performed Nondistended, flat, gastrostomy tube site is in the left upper quadrant in a skin crease, there is a small amount of pretreatment pink/red tissue, most likely either ectopic gastric mucosa or granulation tissue , Visible protrusions or hernias: No Incisions/scars: small amount of granulation tissue present , Areas of pain/tenderness: denies Motor - patient seen sitting with Normal appearing strength and coordination Medical Decision Making: Assessment Assessment & Diagnosis: Cheryl Scruggs is a 37 year old female with a history of Edwina de Hastings syndrome, recent intraparenchymal hemorrhage and gastrostomy tube placement as an inpatient in September 2022. Tube was subsequently removed. The wound has the appearance of either having gastric Koza, or granulation tissue. As the wound continues to heal from the bottom up this likely will resolve itself. Data Reviewed: Tests & Documents Reviewed/ordered: Review of prior notes from gastroenterology Review of prior operative reports I have independently interpreted: None I have discussed Cheryl Scruggs's treatment plan and/or results with patient. Current caregiver team. Treatment plan: -Continue to dress the site with dry sterile gauze -If bleeding develops, this most likely indicates that his granulation tissue, which can be treated in the office with silver nitrate application. -I would not recommend sutures to close the site, as this will likely to abscess formation. Risk of morbidity, mortality and/or complications of treatment plan: low I spent a total of 15 minutes on the date of the service which included preparing to see the patient, [id number] patient care, completing clinical documentation, obtaining and/or reviewing separately obtained history, performing a medically appropriate examination, counseling and educating the patient/family/caregiver, and communicating results to the patient/family/caregiver. Keith Mchugh MD 11/28/2022 documented in this encounter [facility] 11-27-2022 Miscellaneous Notes BMI SPECIALTY CARE COORDINATION TELEPHONE ENCOUNTER Chief complaint & duration :Peg tube pulled out by patient. Sent to local facility to have tube reinserted. Since then patient has pulled out again. Type of procedure: EGD with 20 Fr PEG - inpatient with Dr. Mchugh in September of 2022. Nursing assessment (subjective/objective) Per Ava at [facility] ([phone]). Peg out and site is clean and covered with Telfa. There is a nickel size yellow drainage, but otherwise no signs or symptoms of infection. Patient is eating and drinking fine. Concerned that stoma is not closing/ healing and requesting your opinion. Recommendation: Virtual appointment Levar Varma RN November 27, 2022 2:21 PM documented in this encounter [facility] 11-24-2022 Miscellaneous Notes 11/24/22 @ 1745 Return call back to Nursing staff at [facility] regarding the Anesthesia procedural instructions Jammie Wade RN documented in this encounter [facility] 11-23-2022 Miscellaneous Notes 11/23/22 @ 1625 A message was left on [facility] to return call for procedural instructions, our contact # was provided Jammie Wade RN documented in this encounter [facility] 11-08-2022 Miscellaneous Notes Received request to fa last OV clinical notes to [facility]. Faxed to [phone]. Received confirmation. Ava from [facility] is calling to get the progress noted from the office visit with Dr. Dorman on 10/06/2022. Please fax to Ava FAX # [phone] PHN# [phone] EXT 1200 documented in this encounter [facility] 10-24-2022 Note Q3 Patient Name: Cheryl Scruggs Procedure Date: 10/24/2022 3:21 PM Date of : 1985 Admit Type: Outpatient Age: 37 Gender: Female Note Status: Finalized Attending MD: Rc Garza MD Procedure: Upper GI endoscopy Indications: Dysphagia Providers: Rc Garza MD Patient Profile: This is a 37 year old female. Refer to note in patient chart for documentation of history and physical. Referring Physician: Keith Mchugh (Referring MD) Medicines: Monitored Anesthesia Care Complications: No immediate complications. Requesting Provider: Procedure: Pre-Anesthesia Assessment: - Prior to the procedure, a History and Physical was performed, and patient medications and allergies were reviewed. The patient's tolerance of previous anesthesia was also reviewed. The risks and benefits of the procedure and the sedation options and risks were discussed with the patient. All questions were answered, and informed consent was obtained. Prior Anticoagulants: The patient has taken no anticoagulant or antiplatelet agents. ASA Grade Assessment: III - A patient with severe systemic disease. After reviewing the risks and benefits, the patient was deemed in satisfactory condition to undergo the procedure. After obtaining informed consent, the endoscope was passed under direct vision. Throughout the procedure, the patient's blood pressure, pulse, and oxygen saturations were monitored continuously. The Endoscope was introduced through the mouth, and advanced to the second part of duodenum. The upper GI endoscopy was accomplished without difficulty. The patient tolerated the procedure well. Moderate Sedation: MAC anesthesia was administered by the anesthesia team. Findings: The examined esophagus was normal. A gastric tube was found on the anterior wall of the stomach. The examined duodenum was normal. The PEG required removal because it developed complications. The PEG was removed under endoscopic vision. Removal was easily accomplished. A 20 Fr button gastrostomy tube (MINI ONE Balloon Button 20F x 3 cm) was lubricated. The replacement tube was placed using the existing gastrostomy port and internal balloon was inflated with 10 cc of air. The final position of the gastrostomy tube was confirmed by relook endoscopy. The final tension and compression of the abdominal wall by the PEG tube and external bumper were checked and revealed that the bumper was loose and lightly touching the skin. The tube was capped, and the tube site was cleaned and dressed. Tube was flushed without any difficulty. Impression: - Normal esophagus. - A gastric tube was found in the stomach. - Normal examined duodenum. - Previously placed PEG removed and replaced with low profile MINI ONE Balloon Button 20F x 3 cm. Internal balloon inflated with 10 cc of air. - No specimens collected. Estimated Blood Loss: Estimated blood loss: none. Recommendation: - Discharge patient to home. - Resume previous diet. - Continue present medications. - Patient has a contact number available for emergencies. The signs and symptoms of potential delayed complications were discussed with the patient. Return to normal activities tomorrow. Written discharge instructions were provided to the patient. Procedure Code(s): --- Professional --- 54939, Esophagogastroduodenoscopy, flexible, transoral; with directed placement of percutaneous gastrostomy tube Diagnosis Code(s): --- Professional --- Z93.1, Gastrostomy status K94.20, Gastrostomy complication, unspecified R13.10, Dysphagia, unspecified CPT copyright 2020 [employer]. All rights reserved. Attending Participation: I personally performed the entire procedure. Scope In: 3:35:53 PM Scope Out: 3:44:36 PM Rc Garza MD 10/24/2022 3:53:13 PM Number of Addenda: 0 Note Initiated On: 10/24/2022 3:21 PM [facility] 10-24-2022 Note HNO ID: [id number] Author: Belinda Crespo APRN.PARACHUTE REPAIRER Service: ? Author Type: Nurse Practitioner Type: Progress Notes Filed: 10/24/2022 11:33 AM Note Text: error [facility] 10-24-2022 Nurse Note Patient non verbal with Father by her side answering questions, giving care and consent. PRE OP LEARNING ASSESSMENT PROCEDURE/SURGERY: GI PROCEDURES: EGD READINESS TO LEARN COGNITIVE ABILITY: Developmentally Disabled MOTIVATION TO LEARN: Disinterested / avoidant FAMILY SUPPORT: High - Very involved in pt care PATIENT LEARNS BEST BY: Unable to Assess FACTORS AFFECTING LEARNING: Unable to assess PHYSICAL LIMITATIONS AFFECTING LEARNING: Sensory Deficit Speech: Aphasic Electronically Signed By: Alesia Yu RN In Department: GASTROENTEROLOGY documented in this encounter [facility] 10-24-2022 History of Presen t illness Narrative error documented in this encounter [facility] 10-19-2022 Note HNO ID: [id number] Author: Belinda Crespo APRN.ODALYS Service: ? Author Type: Nurse Practitioner Type: Progress Notes Filed: 10/19/2022 2:46 PM Note Text: Connected Care Unit Discharge Summary SNF Connected Care Program [address], [address] ([address]) [place] [address] -------- CONNECTED CARE DISCHARGE SUMMARY Service Date: 10/19/2022 Admission Date: 09/24/22 Discharge Date: 10/24/22 Facility: [facility] Level of Care: Skilled SNF Attending: Saroj Kohli M.D. 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 Pt. participated in PT/OT without complications. No falls were reported during SNF admission. Tests/Procedures: routine labs Transitions of Care Critical Issues: Imaging follow-up: None Lab Monitoring Needed: None Specialists Follow-Up: None Discharge Physical Exam: Physical Exam Constitutional: General: She is not in acute distress. Appearance: She is not toxic-appearing. HENT: Mouth/Throat: Mouth: Mucous membranes are dry. Eyes: Conjunctiva/sclera: Conjunctivae normal. Cardiovascular: Rate and Rhythm: Normal rate. Pulses: Normal pulses. Heart sounds: Normal heart sounds. Pulmonary: Effort: Pulmonary effort is normal. Breath sounds: Normal breath sounds. Abdominal: General: Bowel sounds are normal. Palpations: Abdomen is soft. Musculoskeletal: Right lower leg: No edema. Left lower leg: No edema. Skin: General: Skin is warm and dry. Capillary Refill: Capillary refill takes less than 2 seconds. Neurological: Mental Status: She is alert. Mental status is at baseline. Motor: Weakness present. Coordination: Coordination abnormal. Gait: Gait abnormal. Discharge Condition: Improved Discharge Disposition: [facility] Discharge Medications: Sennosides (SENNA) 8.6 mg cap Take 1 capsule by mouth as needed. OLANZapine (ZYPREXA) 15 mg tablet 1 tablet by ORAL/FEEDING TUBE route daily at bedtime. acetaminophen (TYLENOL) 325 mg tablet 2 tablets by ORAL/FEEDING TUBE route every 4 hours as needed for pain. aluminum-magnesium hydroxide-simethicone (MAALOX,MYLANTA,MAG-AL PLUS) 200-200-20 mg/5 mL suspension Take 30 mL by mouth every 6 hours as needed. heparin 5,000 unit/mL injection Inject 0.5 mL subcutaneously every 12 hours. lisinopril (ZESTRIL, PRINIVIL) 5 mg tablet 1 tablet by ORAL/FEEDING TUBE route once daily. melatonin 3 mg tablet 1 tablet by ORAL/FEEDING TUBE route daily at bedtime. ondansetron, PF, (ZOFRAN) 4 mg/2 mL soln Inject 4 mg intravenously every 6 hours as needed. linaCLOtide (LINZESS) 290 mcg capsule Take by mouth once daily. Sodium Fluoride, Dental Rinse, (PREVIDENT) 0.2 % soln by DENTAL route. Use every Sunday at bedtime. montelukast (SINGULAIR) 10 mg tablet sucralfate (CARAFATE) 100 mg/mL suspension Take 10 mL by mouth three times daily before meals. docusate sodium (COLACE) 100 mg capsule Take 1 capsule by mouth three times daily. loratadine (CLARITIN) 10 mg tablet Take 1 tablet by mouth once daily as needed for Cold/Allergy Symptoms (for allergy symptoms). MULTIVITAMIN TAB Take one(1) tablet daily. Functional Status: Moderate assist [facility] Scheduled Future Appointments: Future AppointmentsDateRiccardo rtmentCenter:00 [id number] [facility] QMRIQMn Q :00 [id number] [facility] Q (I-STAT/1.5T/3T)MRIQMn Q :40 [id number] [facility] QMRIQMn Q :00 [id number], JESSICA TUCKER Prior to discharge, staff to schedule follow up appointment for patient to see PCP within 7-10 days of discharge. I spent less than 30 minutes in the visit, with more than 50% of the total qjye-lz-yuot time of the visit in counseling / coordination of care. Belinda Crespo APRN.PARACHUTE REPAIRER [facility] 10-17-2022 Note HNO ID: [id number] Author: Belinda Crespo APRN.PARACHUTE REPAIRER Service: ? Author Type: Nurse Practitioner Type: Progress Notes Filed: 10/17/2022 1:42 PM Note Text: Connected Care Unit Progress Note Patient Name: Cheryl Scruggs Patient Facility: [facility] Admit Date 09/24/22 Level of Care: Skilled SNF Attending: Saroj Kohli M.D. 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 symptoms began with lt. leg limp then lt. sided arm weakness, send to ED where CT sudha showed Right-sided nontraumatic intracerebral hemorrhage of brainstem resulting dysphagia present, G-tube placed on 09/20 09/26: Pts. baseline is ambulatory but is confined to a wheelchair at this time but is moving all limbs appropriately, no facial droop, pt. non-verbal which is baseline per family, pureed diet at this time and is tolerating without complications 09/29: No change in condition, pt. laughing and smiling during exam, moving all extremities, no change in neuro exam 10/10-10/12: Pt. ambulating with one person assist, moving all extremities, eating and drinking improved, diet advanced 10/17: No change in condition, pt. continues to show improvement, no acute issues - continue asa 325mg po daily - continue to advance diet - continue nocturnal feeds - continue PT/OT - f/u with neuro as scheduled - f/u with GI as scheduled for DM-DELGADILLO button exchange in 4-6 weeks Appointments for Next 60 Days Date Time Provider Location Dept Phone 12/12/2022 10:00 AM BAY 2 [facility] Q Mn Q Bldg [phone] 12/12/2022 11:00 AM MRI 1 [facility] Q (I-STAT/1.5T/3T) Mn Q Bldg [phone] 12/12/2022 11:40 AM BAY 3 [facility] Q Mn Q 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 LKW 09/04/2022 evening/night. Mother dropped her off at the detention, and she was able to ambulate on her own. On the morning of 09/05/2022, her LLE was noted to be weak. She was noticed to be limping. Later in the day, her LUE was noted to be weak as well. Taken to [facility] ED and found to have a R sided pontine hypodensity on CTH, concerning of IPH (ICH score 2, infratentorial + GCS). Transferred to [facility] ICU for further care. Mother denies patient had past Hx of known vasculopathy, uncontrolled BP, strokes or seizures. Interval HPI: Pt. is alert, calm and cooperative during ROS and physical exam. There are no concerns for bowel or bladder issues. Pt. is eating a pureed diet and drinking fluids appropriately, no complications with nocturnal tube feeds at this time. Pts. baseline is ambulatory but is confined to a wheelchair at this time but is moving all limbs appropriately, no facial droop, pt. non-verbal which is baseline per family All labs and vital signs were reviewed. Pt. is participating in PT/OT without complications. Per nursing staff there are no acute changes to be addressed at this time. 09/29: No change in condition, pt. laughing and smiling during exam, moving all extremities, no change in neuro exam. Abdominal binder applied so pt. does not pull out G-tube. Pt. hemodynamically stable, afebrile, no leukocytosis. Will continue to monitor CBC/BMP and PT/OT. 10/03: Oral thrush present to tongue, eating is decreased either 2/2 oral thrush vs. CVA. Will start nystatin swish and spit QID x 7 days and continue to monitor oral cavity. No acute issues at this time. 10/05: No change in thrush, will continue current treatment. No change in condition. Pt. participating in PT/OT, eating and drinking 75% at this time, receiving tube feeds without complications. No bowel or bladder issues. Labs reviewed, hemodynamically stable. No acute issues at this time. 10/10-10/12: Pt. ambulating with one person assist, moving all extremities, eating and drinking improved, diet advanced. Given ambulatory status, heparin can be discontinued at this time and will start asa 325mg po daily. Pt. seen by neuro on 10/06 and recommended MRI in 2-3 months. Oral thrush has resolved with nystatin. No acute issues at this time. 10/17: No change in condition. Pt. participating in PT/OT with continued improvement, eating and drinking appropriately. No bladder issues, hard stools present, senna BID added to bowel regimen. Labs reviewed, hemodynamically stable. No acute issues at this time. PAST MEDICAL HISTORY Diagnosis Date Anemia Cholelithiasis [place] de Hastings syndrome GERD (gastroesophageal reflux disease) Pyloric stenosis SUBJECTIVE: Review of Systems Unable to per (more content not included)... [facility] 10-17-2022 History of Presen t illness Narrative Images from the original note were not included. Connected Care Unit Progress Note Patient Name: Cheryl Scruggs Patient Facility: [facility] Admit Date 09/24/22 Level of Care: Skilled SNF Attending: Saroj Kohli M.D. 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 symptoms began with lt. leg limp then lt. sided arm weakness, send to ED where CT sudha showed Right-sided nontraumatic intracerebral hemorrhage of brainstem resulting dysphagia present, G-tube placed on 09/20 09/26: Pts. baseline is ambulatory but is confined to a wheelchair at this time but is moving all limbs appropriately, no facial droop, pt. non-verbal which is baseline per family, pureed diet at this time and is tolerating without complications 09/29: No change in condition, pt. laughing and smiling during exam, moving all extremities, no change in neuro exam 10/10-10/12: Pt. ambulating with one person assist, moving all extremities, eating and drinking improved, diet advanced 10/17: No change in condition, pt. continues to show improvement, no acute issues - continue asa 325mg po daily - continue to advance diet - continue nocturnal feeds - continue PT/OT - f/u with neuro as scheduled - f/u with GI as scheduled for [facility] button exchange in 4-6 weeks Appointments for Next 60 Days Date Time Provider Location Dept Phone 12/12/2022 10:00 AM BAY 2 RADIO MAIN Q Mn Q [facility] [phone] 12/12/2022 11:00 AM MRI 1 RADIO MAIN Q (I-STAT/1.5T/3T) Mn Q [facility] [phone] 12/12/2022 11:40 AM BAY 3 RADIO MAIN Q Mn Q [facility] [phone] HPI: (Per Discharge summary) Ms Scruggs is a 37 yo with Norfolk de Hastings syndrome (baseline non-verbal and with developmental delay, otherwise 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 LKW 09/04/2022 evening/night. Mother dropped her off at the detention, and she was able to ambulate on her own. On the morning of 09/05/2022, her LLE was noted to be weak. She was noticed to be limping. Later in the day, her LUE was noted to be weak as well. Taken to [facility] ED and found to have a R sided pontine hypodensity on CTH, concerning of IPH (ICH score 2, infratentorial + GCS). Transferred to [facility] ICU for further care. Mother denies patient had past Hx of known vasculopathy, uncontrolled BP, strokes or seizures. Interval HPI: Pt. is alert, calm and cooperative during ROS and physical exam. There are no concerns for bowel or bladder issues. Pt. is eating a pureed diet and drinking fluids appropriately, no complications with nocturnal tube feeds at this time. Pts. baseline is ambulatory but is confined to a wheelchair at this time but is moving all limbs appropriately, no facial droop, pt. non-verbal which is baseline per family All labs and vital signs were reviewed. Pt. is participating in PT/OT without complications. Per nursing staff there are no acute changes to be addressed at this time. 09/29: No change in condition, pt. laughing and smiling during exam, moving all extremities, no change in neuro exam. Abdominal binder applied so pt. does not pull out G-tube. Pt. hemodynamically stable, afebrile, no leukocytosis. Will continue to monitor CBC/BMP and PT/OT. 10/03: Oral thrush present to tongue, eating is decreased either 2/2 oral thrush vs. CVA. Will start nystatin swish and spit QID x 7 days and continue to monitor oral cavity. No acute issues at this time. 10/05: No change in thrush, will continue current treatment. No change in condition. Pt. participating in PT/OT, eating and drinking 75% at this time, receiving tube feeds without complications. No bowel or bladder issues. Labs reviewed, hemodynamically stable. No acute issues at this time. 10/10-10/12: Pt. ambulating with one person assist, moving all extremities, eating and drinking improved, diet advanced. Given ambulatory status, heparin can be discontinued at this time and will start asa 325mg po daily. Pt. seen by neuro on 10/06 and recommended MRI in 2-3 months. Oral thrush has resolved with nystatin. No acute issues at this time. 10/17: No change in condition. Pt. participating in PT/OT with continued improvement, eating and drinking appropriately. No bladder issues, hard stools present, senna BID added to bowel regimen. Labs reviewed, hemodynamically stable. No acute issues at this time. PAST MEDICAL HISTORY Diagnosis Date Anemia Cholelithiasis [place] de Hastings syndrome GERD (gastroesophageal reflux disease) Pyloric stenosis SUBJECTIVE: Review of Systems Unable to perform ROS: Patient nonverbal No reports of falls/injuries, changes in cognition/behaviors, or any uncontrolled pain exacerbations. Medications: Medications listed in Epic during SNF admission may not be current. Refer to facility record. Patient records, current medications, most recent labs, family/social history (unchanged) Reviewed. Refer to facility records. OBJECTIVE: Labs/diagnostics: reviewed Physical Exam: Physical Exam Constitutional: General: She is not in acute distress. Appearance: She is not toxic-appearing. HENT: Mouth/Throat: Mouth: Mucous membranes are dry. Eyes: Conjunctiva/sclera: Conjunctivae normal. Cardiovascular: Rate and Rhythm: Normal rate. Pulses: Normal pulses. Heart sounds: Normal heart sounds. Pulmonary: Effort: Pulmonary effort is normal. Breath sounds: Normal breath sounds. Abdominal: General: Bowel sounds are normal. Palpations: Abdomen is soft. Musculoskeletal: Right lower leg: No edema. Left lower leg: No edema. Skin: General: Skin is warm and dry. Capillary Refill: Capillary refill takes less than 2 seconds. Neurological: Mental Status: She is alert. Mental status is at baseline. Motor: Weakness present. Coordination: Coordination abnormal. Gait: Gait abnormal. Some elements from the note on 10/12/22 have not changed and have been copied from that note. Any changes in condition have been addressed and charted accordingly. POC discussed with appropriate parties and nursing staff. Electronically signed by Belinda Crespo APRN.PARACHUTE REPAIRER documented in this encounter [facility] 10-12-2022 Note HNO ID: [id number] Author: Belinda Crespo APRN.ODALYS Service: ? Author Type: Nurse Practitioner Type: Progress Notes Filed: 10/12/2022 4:01 PM Note Text: Connected Care Unit Progress Note Patient Name: Cheryl Scruggs Patient Facility: [facility] Admit Date 09/24/22 Level of Care: Skilled SNF Attending: Saroj Kohli M.D. 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 symptoms began with lt. leg limp then lt. sided arm weakness, send to ED where CT sudha showed Right-sided nontraumatic intracerebral hemorrhage of brainstem resulting dysphagia present, G-tube placed on 09/20 09/26: Pts. baseline is ambulatory but is confined to a wheelchair at this time but is moving all limbs appropriately, no facial droop, pt. non-verbal which is baseline per family, pureed diet at this time and is tolerating without complications 09/29: No change in condition, pt. laughing and smiling during exam, moving all extremities, no change in neuro exam 10/10-10/12: Pt. 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 LKW 09/04/2022 evening/night. Mother dropped her off at the detention, and she was able to ambulate on her own. On the morning of 09/05/2022, her LLE was noted to be weak. She was noticed to be limping. Later in the day, her LUE was noted to be weak as well. Taken to [facility] ED and found to have a R sided pontine hypodensity on CTH, concerning of IPH (ICH score 2, infratentorial + GCS). Transferred to [facility] ICU for further care. Mother denies patient had past Hx of known vasculopathy, uncontrolled BP, strokes or seizures. Interval HPI: Pt. is alert, calm and cooperative during ROS and physical exam. There are no concerns for bowel or bladder issues. Pt. is eating a pureed diet and drinking fluids appropriately, no complications with nocturnal tube feeds at this time. Pts. baseline is ambulatory but is confined to a wheelchair at this time but is moving all limbs appropriately, no facial droop, pt. non-verbal which is baseline per family All labs and vital signs were reviewed. Pt. is participating in PT/OT without complications. Per nursing staff there are no acute changes to be addressed at this time. 09/29: No change in condition, pt. laughing and smiling during exam, moving all extremities, no change in neuro exam. Abdominal binder applied so pt. does not pull out G-tube. Pt. hemodynamically stable, afebrile, no leukocytosis. Will continue to monitor CBC/BMP and PT/OT. 10/03: Oral thrush present to tongue, eating is decreased either 2/2 oral thrush vs. CVA. Will start nystatin swish and spit QID x 7 days and continue to monitor oral cavity. No acute issues at this time. 10/05: No change in thrush, will continue current treatment. No change in condition. Pt. participating in PT/OT, eating and drinking 75% at this time, receiving tube feeds without complications. No bowel or bladder issues. Labs reviewed, hemodynamically stable. No acute issues at this time. 10/10-10/12: Pt. ambulating with one person assist, moving all extremities, eating and drinking improved, diet advanced. Given ambulatory status, heparin can be discontinued at this time and will start asa 325mg po daily. Pt. seen by neuro on 10/06 and recommended MRI in 2-3 months. Oral thrush has resolved with nystatin. No acute issues at this time. PAST MEDICAL HISTORY Diagnosis Date Anemia Cholelithiasis [place] de [place] syndrome GERD (gastroesophageal reflux disease) Pyloric stenosis SUBJECTIVE: Review of Systems Unable to perform ROS: Patient nonverbal No reports of falls/injuries, changes in cognition/behaviors, or any uncontrolled pain exacerbations. Medications: Medications listed in Epic during SNF admission may not be current. Refer to facility record. Patient records, current medications, most recent labs, family/social history (unchanged) Reviewed. Refer to facility records. OBJECTIVE: Labs/diagnostics: reviewed Physical Exam: Physical Exam Constitutional: General: She is not in acute distress. Appearance: She is not toxic-appearing. HENT: Mouth/Throat: Mouth: Mucous membranes are dry. Eyes: Conjunctiva/sclera: C (more content not included)... [facility] 10-12-2022 History of Presen t illness Narrative Images from the original note were not included. Connected Care Unit Progress Note Patient Name: Cheryl Scruggs Patient Facility: [facility] Admit Date 09/24/22 Level of Care: Skilled SNF Attending: Saroj Kohli M.D. 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 symptoms began with lt. leg limp then lt. sided arm weakness, send to ED where CT sudha showed Right-sided nontraumatic intracerebral hemorrhage of brainstem resulting dysphagia present, G-tube placed on 09/20 09/26: Pts. baseline is ambulatory but is confined to a wheelchair at this time but is moving all limbs appropriately, no facial droop, pt. non-verbal which is baseline per family, pureed diet at this time and is tolerating without complications 09/29: No change in condition, pt. laughing and smiling during exam, moving all extremities, no change in neuro exam 10/10-10/12: Pt. 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 LKW 09/04/2022 evening/night. Mother dropped her off at the detention, and she was able to ambulate on her own. On the morning of 09/05/2022, her LLE was noted to be weak. She was noticed to be limping. Later in the day, her LUE was noted to be weak as well. Taken to [facility] ED and found to have a R sided pontine hypodensity on CTH, concerning of IPH (ICH score 2, infratentorial + GCS). Transferred to [facility] ICU for further care. Mother denies patient had past Hx of known vasculopathy, uncontrolled BP, strokes or seizures. Interval HPI: Pt. is alert, calm and cooperative during ROS and physical exam. There are no concerns for bowel or bladder issues. Pt. is eating a pureed diet and drinking fluids appropriately, no complications with nocturnal tube feeds at this time. Pts. baseline is ambulatory but is confined to a wheelchair at this time but is moving all limbs appropriately, no facial droop, pt. non-verbal which is baseline per family All labs and vital signs were reviewed. Pt. is participating in PT/OT without complications. Per nursing staff there are no acute changes to be addressed at this time. 09/29: No change in condition, pt. laughing and smiling during exam, moving all extremities, no change in neuro exam. Abdominal binder applied so pt. does not pull out G-tube. Pt. hemodynamically stable, afebrile, no leukocytosis. Will continue to monitor CBC/BMP and PT/OT. 10/03: Oral thrush present to tongue, eating is decreased either 2/2 oral thrush vs. CVA. Will start nystatin swish and spit QID x 7 days and continue to monitor oral cavity. No acute issues at this time. 10/05: No change in thrush, will continue current treatment. No change in condition. Pt. participating in PT/OT, eating and drinking 75% at this time, receiving tube feeds without complications. No bowel or bladder issues. Labs reviewed, hemodynamically stable. No acute issues at this time. 10/10-10/12: Pt. ambulating with one person assist, moving all extremities, eating and drinking improved, diet advanced. Given ambulatory status, heparin can be discontinued at this time and will start asa 325mg po daily. Pt. seen by neuro on 10/06 and recommended MRI in 2-3 months. Oral thrush has resolved with nystatin. No acute issues at this time. PAST MEDICAL HISTORY Diagnosis Date Anemia Cholelithiasis [place] de [place] syndrome GERD (gastroesophageal reflux disease) Pyloric stenosis SUBJECTIVE: Review of Systems Unable to perform ROS: Patient nonverbal No reports of falls/injuries, changes in cognition/behaviors, or any uncontrolled pain exacerbations. Medications: Medications listed in Epic during SNF admission may not be current. Refer to facility record. Patient records, current medications, most recent labs, family/social history (unchanged) Reviewed. Refer to facility records. OBJECTIVE: Labs/diagnostics: reviewed Physical Exam: Physical Exam Constitutional: General: She is not in acute distress. Appearance: She is not toxic-appearing. HENT: Mouth/Throat: Mouth: Mucous membranes are dry. Eyes: Conjunctiva/sclera: Conjunctivae normal. Cardiovascular: Rate and Rhythm: Normal rate. Pulses: Normal pulses. Heart sounds: Normal heart sounds. Pulmonary: Effort: Pulmonary effort is normal. Breath sounds: Normal breath sounds. Abdominal: General: Bowel sounds are normal. Palpations: Abdomen is soft. Musculoskeletal: Right lower leg: No edema. Left lower leg: No edema. Skin: General: Skin is warm and dry. Capillary Refill: Capillary refill takes less than 2 seconds. Neurological: Mental Status: She is alert. Mental status is at baseline. Motor: Weakness present. Coordination: Coordination abnormal. Gait: Gait abnormal. Some elements from the note on 10/10/22 have not changed and have been copied from that note. Any changes in condition have been addressed and charted accordingly. POC discussed with appropriate parties and nursing staff. Electronically signed by Belinda Crespo APRN.PARACHUTE REPAIRER documented in this encounter [facility] 10-10-2022 Note HNO ID: [id number] Author: Belinda Crespo APRN.ODALYS Service: ? Author Type: Nurse Practitioner Type: Progress Notes Filed: 10/10/2022 3:27 PM Note Text: Connected Care Unit Progress Note Patient Name: Cheryl Scruggs Patient Facility: [facility] Admit Date 09/24/22 Level of Care: Skilled SNF Attending: Saroj Kohli M.D. 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 symptoms began with lt. leg limp then lt. sided arm weakness, send to ED where CT sudha showed Right-sided nontraumatic intracerebral hemorrhage of brainstem resulting dysphagia present, G-tube placed on 09/20 09/26: Pts. baseline is ambulatory but is confined to a wheelchair at this time but is moving all limbs appropriately, no facial droop, pt. non-verbal which is baseline per family, pureed diet at this time and is tolerating without complications 09/29: No change in condition, pt. laughing and smiling during exam, moving all extremities, no change in neuro exam 10/10: Pt. 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 LKW 09/04/2022 evening/night. Mother dropped her off at the detention, and she was able to ambulate on her own. On the morning of 09/05/2022, her LLE was noted to be weak. She was noticed to be limping. Later in the day, her LUE was noted to be weak as well. Taken to [facility] ED and found to have a R sided pontine hypodensity on CTH, concerning of IPH (ICH score 2, infratentorial + GCS). Transferred to [facility] ICU for further care. Mother denies patient had past Hx of known vasculopathy, uncontrolled BP, strokes or seizures. Interval HPI: Pt. is alert, calm and cooperative during ROS and physical exam. There are no concerns for bowel or bladder issues. Pt. is eating a pureed diet and drinking fluids appropriately, no complications with nocturnal tube feeds at this time. Pts. baseline is ambulatory but is confined to a wheelchair at this time but is moving all limbs appropriately, no facial droop, pt. non-verbal which is baseline per family All labs and vital signs were reviewed. Pt. is participating in PT/OT without complications. Per nursing staff there are no acute changes to be addressed at this time. 09/29: No change in condition, pt. laughing and smiling during exam, moving all extremities, no change in neuro exam. Abdominal binder applied so pt. does not pull out G-tube. Pt. hemodynamically stable, afebrile, no leukocytosis. Will continue to monitor CBC/BMP and PT/OT. 10/03: Oral thrush present to tongue, eating is decreased either 2/2 oral thrush vs. CVA. Will start nystatin swish and spit QID x 7 days and continue to monitor oral cavity. No acute issues at this time. 10/05: No change in thrush, will continue current treatment. No change in condition. Pt. participating in PT/OT, eating and drinking 75% at this time, receiving tube feeds without complications. No bowel or bladder issues. Labs reviewed, hemodynamically stable. No acute issues at this time. 10/10: Pt. ambulating with one person assist, moving all extremities, eating and drinking improved, diet advanced. Given ambulatory status, heparin can be discontinued at this time and will start asa 325mg po daily. Pt. seen by neuro on 10/06 and recommended MRI in 2-3 months. Oral thrush has resolved with nystatin. No acute issues at this time. PAST MEDICAL HISTORY Diagnosis Date Anemia Cholelithiasis Edwina de Hastings syndrome GERD (gastroesophageal reflux disease) Pyloric stenosis SUBJECTIVE: Review of Systems Unable to perform ROS: Patient nonverbal No reports of falls/injuries, changes in cognition/behaviors, or any uncontrolled pain exacerbations. Medications: Medications listed in Epic during SNF admission may not be current. Refer to facility record. Patient records, current medications, most recent labs, family/social history (unchanged) Reviewed. Refer to facility records. OBJECTIVE: Labs/diagnostics: reviewed Physical Exam: Physical Exam Constitutional: General: She is not in acute distress. Appearance: She is not toxic-appearing. HENT: Mouth/Throat: Mouth: Mucous membranes are dry. Eyes: Conjunctiva/sclera (more content not included)... [facility] 10-10-2022 History of Presen t illness Narrative Images from the original note were not included. Connected Care Unit Progress Note Patient Name: Cheryl Scruggs Patient Facility: [facility] Admit Date 09/24/22 Level of Care: Skilled SNF Attending: Saroj Kohli M.D. 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 symptoms began with lt. leg limp then lt. sided arm weakness, send to ED where CT sudha showed Right-sided nontraumatic intracerebral hemorrhage of brainstem resulting dysphagia present, G-tube placed on 09/20 09/26: Pts. baseline is ambulatory but is confined to a wheelchair at this time but is moving all limbs appropriately, no facial droop, pt. non-verbal which is baseline per family, pureed diet at this time and is tolerating without complications 09/29: No change in condition, pt. laughing and smiling during exam, moving all extremities, no change in neuro exam 10/10: Pt. 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 LKW 09/04/2022 evening/night. Mother dropped her off at the detention, and she was able to ambulate on her own. On the morning of 09/05/2022, her LLE was noted to be weak. She was noticed to be limping. Later in the day, her LUE was noted to be weak as well. Taken to [facility] ED and found to have a R sided pontine hypodensity on CTH, concerning of IPH (ICH score 2, infratentorial + GCS). Transferred to [facility] ICU for further care. Mother denies patient had past Hx of known vasculopathy, uncontrolled BP, strokes or seizures. Interval HPI: Pt. is alert, calm and cooperative during ROS and physical exam. There are no concerns for bowel or bladder issues. Pt. is eating a pureed diet and drinking fluids appropriately, no complications with nocturnal tube feeds at this time. Pts. baseline is ambulatory but is confined to a wheelchair at this time but is moving all limbs appropriately, no facial droop, pt. non-verbal which is baseline per family All labs and vital signs were reviewed. Pt. is participating in PT/OT without complications. Per nursing staff there are no acute changes to be addressed at this time. 09/29: No change in condition, pt. laughing and smiling during exam, moving all extremities, no change in neuro exam. Abdominal binder applied so pt. does not pull out G-tube. Pt. hemodynamically stable, afebrile, no leukocytosis. Will continue to monitor CBC/BMP and PT/OT. 10/03: Oral thrush present to tongue, eating is decreased either 2/2 oral thrush vs. CVA. Will start nystatin swish and spit QID x 7 days and continue to monitor oral cavity. No acute issues at this time. 10/05: No change in thrush, will continue current treatment. No change in condition. Pt. participating in PT/OT, eating and drinking 75% at this time, receiving tube feeds without complications. No bowel or bladder issues. Labs reviewed, hemodynamically stable. No acute issues at this time. 10/10: Pt. ambulating with one person assist, moving all extremities, eating and drinking improved, diet advanced. Given ambulatory status, heparin can be discontinued at this time and will start asa 325mg po daily. Pt. seen by neuro on 10/06 and recommended MRI in 2-3 months. Oral thrush has resolved with nystatin. No acute issues at this time. PAST MEDICAL HISTORY Diagnosis Date Anemia Cholelithiasis Edwina de Hastings syndrome GERD (gastroesophageal reflux disease) Pyloric stenosis SUBJECTIVE: Review of Systems Unable to perform ROS: Patient nonverbal No reports of falls/injuries, changes in cognition/behaviors, or any uncontrolled pain exacerbations. Medications: Medications listed in Epic during SNF admission may not be current. Refer to facility record. Patient records, current medications, most recent labs, family/social history (unchanged) Reviewed. Refer to facility records. OBJECTIVE: Labs/diagnostics: reviewed Physical Exam: Physical Exam Constitutional: General: She is not in acute distress. Appearance: She is not toxic-appearing. HENT: Mouth/Throat: Mouth: Mucous membranes are dry. Eyes: Conjunctiva/sclera: Conjunctivae normal. Cardiovascular: Rate and Rhythm: Normal rate. Pulses: Normal pulses. Heart sounds: Normal heart sounds. Pulmonary: Effort: Pulmonary effort is normal. Breath sounds: Normal breath sounds. Abdominal: General: Bowel sounds are normal. Palpations: Abdomen is soft. Musculoskeletal: Right lower leg: No edema. Left lower leg: No edema. Skin: General: Skin is warm and dry. Capillary Refill: Capillary refill takes less than 2 seconds. Neurological: Mental Status: She is alert. Mental status is at baseline. Motor: Weakness present. Coordination: Coordination abnormal. Gait: Gait abnormal. Some elements from the note on 10/05/22 have not changed and have been copied from that note. Any changes in condition have been addressed and charted accordingly. POC discussed with appropriate parties and nursing staff. Electronically signed by Belinda Crespo APRN.PARACHUTE REPAIRER documented in this encounter [facility] 10-06-2022 Note HNO ID: [id number] Author: Susan Chavarria APRN.ODALYS Service: ? Author Type: Nurse Practitioner Type: Progress Notes Filed: 10/06/2022 3:06 PM Note Text: CEREBROVASCULAR CENTER Virtual Visit CEREBROVASCULAR HISTORY Cheryl Scruggs is a 37 year old female who presents for a neurological evaluation following a hospitalization. Admitted to [facility] 09/05/22-09/22/22 Ms Scruggs is a 37 yo with [place] de Hastings syndrome (baseline non-verbal and with developmental delay, otherwise 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 Neurosurgery was consulted. Repeat CTH non contrast showed stable hemorrhage and CTA head and neck was done for vessel imaging showed no vascular abnormality to cause hemorrhage. MRI brain w/wo contrast was done under anesthesia and was significant for stable pontine hemorrhage with no underlying enhancing mass/lesion or ischemic stroke noted. Further vessel imaging was done with a cerebral angiogram showing no vascular malformation to explain hemorrhage. Etiology of hemorrhage was felt to be hypertensive vs possible cavernous malformation Patient does not have a history of uncontrolled hypertension and no hypertensive changes noted on MRI. She was started on Lisinopril 5 mg daily, blood pressure running 96-121/63-72 on discharge. Other possibilities thought to be cavernous malformation that is not seen on cerebral angiogram. Would recommend repeating MRI with and without in 2-3 months for further confirmation Virtual Visit 10/06/22 Patient presents for hospital discharge follow up. The patient's father is on to help facilitate our meeting today. Patient denies any new or worsening signs or symptoms of stroke. Patient denies any one sided weakness, facial droop, changes in speech or vision. Patient is taking all medications as prescribed. Blood pressure has been controlled. Running systolic 116-120 G-tube placed at admission, plant to switch to DM-DELGADILLO button. Endoscopy referral is active and pending review for scheduling. Tolerated fitmob tube feeds currently Eating some oral, appetite not resolved yet. Continued overnight feedings. Discharged to [facility] with plans to return to [facility] where she was living prior to her admission Patient is working with Physical/Occupational/Speech therapy with mild improvement. Continued left side weakness, has improve greatly. Not back to baseline yet. The patient understands the discussed etiology of stroke with further risk factor management for secondary stroke prevention. Patient's father brought up concerns of the patient being on control leading up to admission. We discussed concerns for control are with ischemic infarcts or clotting. Will be able to rule out possibility of hemorrhagic transformation of ischemic infarct with repeat MRI. Reason for Visit: cerebral hemorrhage Date of Last Event: 09/05/2022 Residual Deficits: Left-sided weakness Initial Discharge Disposition: SNF Current Living Situation: Extended care Current use of a mobility aid for walking/getting around: N/A (patient bedbound) PAST MEDICAL HISTORY Diagnosis Date Anemia Cholelithiasis [place] de Hastings syndrome GERD (gastroesophageal reflux disease) Pyloric stenosis PAST SURGICAL HISTORY Procedure Laterality Date ESOPHAGOGASTRIC FUNDOPLASTY FAMILY HISTORY Problem Relation Age of Onset Headache Mother migraine Headache Maternal Aunt migraine Seizures Maternal Uncle Developmental problem Maternal Uncle MRDD Coronary Artery Disease Maternal Grandmother Hypertension Maternal Grandmother Coronary Artery Disease Maternal Uncle Hypertension Maternal Uncle GI Maternal Aunt GERD Social History Tobacco Use Smoking status: Never Smokeless tobacco: Never Substance Use Topics Alcohol use: Never Drug use: Never MEDICATIONS Current Outpatient Medications Medication Sig OLANZapine (ZYPREXA) 15 mg tablet 1 tablet by ORAL/FEEDING TUBE route daily at bedtime. acetaminophen (TYLENOL) 325 mg tablet 2 tablets by ORAL/FEEDING TUBE route every 4 hours as needed for pain. aluminum-magnesium hydroxide-simethicone (MAALOX,MYLANTA,MAG-AL PLUS) 200-200-20 mg/5 mL suspension Take 30 mL by mouth every 6 hours as needed. heparin 5,000 unit/mL injection Inject 0.5 mL subcutaneously every 12 hours. lisinopril (ZESTRIL, PRINIVIL) 5 mg tablet 1 tablet by ORAL/FEEDING TUBE route once daily. melatonin 3 mg tablet 1 tablet by ORAL/FEEDING TUBE route daily at bedtime. ondansetron, PF, (ZOFRAN) 4 mg/2 mL soln Inject 4 mg intravenously every 6 hours as needed. linaCLOtide (LINZESS) 290 mcg capsule Take by mouth once daily. Sodium Fluoride, Dental Rinse, (PREVIDENT) 0.2 % soln by DENTAL route. Use every Sunday at bedtime. montelukast (SINGULAIR) 10 mg tablet sucralfate (CARAFATE) 100 m (more content not included)... [facility] 10-06-2022 Note HNO ID: [id number] Author: Antionette Dorman MD, PhD Service: ? Author Type: Physician Type: Progress Notes Filed: 10/30/2022 7:57 PM Note Text: EST PT OFFICE VISIT Patient's mom, Quin states, having pain with constipation. Hard stools.occasional Slight bleeding.Currently on colace TID. Observed increase agitation. Went to ED for Dx:stroke on 09/05/22. Had new tube placed x3 weeks ago. CC: Patient presents with: Established Patient Follow-Up: 1 year f/u Slow transit constipation Ms. Scruggs is here today for follow-up of: She was in hospital with stroke She had peg tube put in She is finally beginning to eat with right hand Left side was effected Two of buttons came off They are doing iGoOn s.r.l. at night Up to ? 55 cc 12 hours Gets flush Is constipated Having large calibur stools Have a inverter and clipper? With the cva Lives in flat rafyk Was on clinic medications Was hitting self and she was hitting herself There is discussion of nieves One time saw food coming out Not drinking Would see her every week Cheryl could drink three quarts of liquids Had a decent bm Overall the constpation is he rissues Not drinking Yesterday she was She was tried on miralax due to gas VITALS: Last menstrual period 04/01/2011. ALLERGIES: Patient has no known allergies. MEDICATIONS: Current Outpatient Medications Medication Sig Dispense Refill OLANZapine (ZYPREXA) 15 mg tablet 1 tablet by ORAL/FEEDING TUBE route daily at bedtime. acetaminophen (TYLENOL) 325 mg tablet 2 tablets by ORAL/FEEDING TUBE route every 4 hours as needed for pain. ondansetron, PF, (ZOFRAN) 4 mg/2 mL soln Inject 4 mg intravenously every 6 hours as needed. linaCLOtide (LINZESS) 290 mcg capsule Take by mouth once daily. Sodium Fluoride, Dental Rinse, (PREVIDENT) 0.2 % soln by DENTAL route. Use every Sunday at bedtime. montelukast (SINGULAIR) 10 mg tablet docusate sodium (COLACE) 100 mg capsule Take 1 capsule by mouth three times daily. loratadine (CLARITIN) 10 mg tablet Take 1 tablet by mouth once daily as needed for Cold/Allergy Symptoms (for allergy symptoms). 0 MULTIVITAMIN TAB Take one(1) tablet daily. 0 Sennosides (SENNA) 8.6 mg cap Take 1 capsule by mouth as needed. aluminum-magnesium hydroxide-simethicone (MAALOX,MYLANTA,MAG-AL PLUS) 200-200-20 mg/5 mL suspension Take 30 mL by mouth every 6 hours as needed. heparin 5,000 unit/mL injection Inject 0.5 mL subcutaneously every 12 hours. lisinopril (ZESTRIL, PRINIVIL) 5 mg tablet 1 tablet by ORAL/FEEDING TUBE route once daily. melatonin 3 mg tablet 1 tablet by ORAL/FEEDING TUBE route daily at bedtime. sucralfate (CARAFATE) 100 mg/mL suspension Take 10 mL by mouth three times daily before meals. 900 mL 11 No current facility-administered medications for this visit. Social History: Social History Tobacco Use Smoking status: Never Smokeless tobacco: Never Vaping Use Vaping Use: Never used Substance Use Topics Alcohol use: Never Drug use: Never Medical History: No changes since last visit. REVIEW OF SYSTEMS: GENERAL: weight stable, no fevers. CARDIOVASCULAR: No chest pain, no edema RESPIRATORY: No dyspnea The remainder of the review of systems are negative. Reviewed with patient during visit today. PHYSICAL EXAMINATION: GENERAL APPEARANCE: Well developed and well nourished. SKIN: Skin color, texture, turgor normal. No rashes or lesions. EYES: Conjunctiva normal without icterus. OROPHARYNX: lips, mucosa, and tongue normal, teeth and gums normal NECK: Supple, full range of motion, no lymphadenopathy, normal thyroid, LUNGS: Normal breath sounds, Clear to auscultation, No wheezes, No crackles. HEART:Normal PMI, Regular rate and rhythm, Normal heart sounds, S1 and S2 and No murmurs. NEURO: Alert and oriented in no acute distress. ABDOMEN: Normal bowel sounds, abdomen flat with no distention, Soft, non-tender, no hepatomegaly. no palpable masses, no abdominal bruits, no rebound and no rigidity. Peg in place EXTREMITIES: ASSESSMENT/PLAN: (K59.01) Slow transit constipation (primary encounter diagnosis) (E44.1) Malnutrition of mild degree (HCC) (I69.191) Dysphagia following nontraumatic intracerebral hemorrhage (Z93.1) S/P percutaneous endoscopic gastrostomy (PEG) tube placement (HCC) 34 yo with Edwina San, She has history of stefanie and pyloroplasty for pyloric stenosis as with constipation and some feeding difficulties This year in September she had CVA. At that time peg was placed. She is having some constipation but may be related to water intake to some part-she should take her senna as needed and continue linzess Her nutritional and free water needs should be reassessed by inverter and clipper. If there is one associated with current care facility that would be great. I can refer is not. In regards to peg, usually the team that placed would replace the first one. There was (more content not included)... [facility] 10-05-2022 Note HNO ID: [id number] Author: Belinda Crespo APRN.ODALYS Service: ? Author Type: Nurse Practitioner Type: Progress Notes Filed: 10/05/2022 10:46 AM Note Text: Connected Care Unit Progress Note Patient Name: Cheryl Scruggs Patient Facility: [facility] Admit Date 09/24/22 Level of Care: Skilled SNF Attending: Saroj Kohli M.D. Service Date: 10/05/2022 Code Status: Chief Complaint: Evaluation regarding oral thrush ASSESSMENT AND PLAN Oral thrush (primary encounter diagnosis) Oral thrush present to tongue, eating is decreased either 2/2 oral thrush vs. CVA 10/05: No change in thrush, will continue current treatment - continue nystatin swish and spit QID x 7 days - continue to monitor oral cavity Appointments for Next 60 Days Date Time Provider Location Dept Phone 10/06/2022 10:40 AM LAKIAROMAANTIONETTE Gabby SHAUN [phone] 10/06/2022 2:35 PM ROSALINASUSAN S 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 LKW 09/04/2022 evening/night. Mother dropped her off at the detention, and she was able to ambulate on her own. On the morning of 09/05/2022, her LLE was noted to be weak. She was noticed to be limping. Later in the day, her LUE was noted to be weak as well. Taken to [facility] ED and found to have a R sided pontine hypodensity on CTH, concerning of IPH (ICH score 2, infratentorial + GCS). Transferred to [facility] ICU for further care. Mother denies patient had past Hx of known vasculopathy, uncontrolled BP, strokes or seizures. Interval HPI: Pt. is alert, calm and cooperative during ROS and physical exam. There are no concerns for bowel or bladder issues. Pt. is eating a pureed diet and drinking fluids appropriately, no complications with nocturnal tube feeds at this time. Pts. baseline is ambulatory but is confined to a wheelchair at this time but is moving all limbs appropriately, no facial droop, pt. non-verbal which is baseline per family All labs and vital signs were reviewed. Pt. is participating in PT/OT without complications. Per nursing staff there are no acute changes to be addressed at this time. 09/29: No change in condition, pt. laughing and smiling during exam, moving all extremities, no change in neuro exam. Abdominal binder applied so pt. does not pull out G-tube. Pt. hemodynamically stable, afebrile, no leukocytosis. Will continue to monitor CBC/BMP and PT/OT. 10/03: Oral thrush present to tongue, eating is decreased either 2/2 oral thrush vs. CVA. Will start nystatin swish and spit QID x 7 days and continue to monitor oral cavity. No acute issues at this time. 10/05: No change in thrush, will continue current treatment. No change in condition. Pt. participating in PT/OT, eating and drinking 75% at this time, receiving tube feeds without complications. No bowel or bladder issues. Labs reviewed, hemodynamically stable. No acute issues at this time. PAST MEDICAL HISTORY Diagnosis Date Anemia Cholelithiasis [place] de Hastings syndrome GERD (gastroesophageal reflux disease) Pyloric stenosis SUBJECTIVE: Review of Systems Unable to perform ROS: Patient nonverbal No reports of falls/injuries, changes in cognition/behaviors, or any uncontrolled pain exacerbations. Medications: Medications listed in Epic during SNF admission may not be current. Refer to facility record. Patient records, current medications, most recent labs, family/social history (unchanged) Reviewed. Refer to facility records. OBJECTIVE: Labs/diagnostics: reviewed Physical Exam: Physical Exam Constitutional: General: She is not in acute distress. Appearance: She is not toxic-appearing. HENT: Mouth/Throat: Mouth: Mucous membranes are dry. Comments: oral thrush present Eyes: Conjunctiva/sclera: Conjunctivae normal. Cardiovascular: Rate and Rhythm: Normal rate. Pulses: Normal pulses. Heart sounds: Normal heart sounds. Pulmonary: Effort: Pulmonary effort is normal. Breath sounds: Normal breath sounds. Abdominal: General: Bowel sounds are normal. Palpations: Abdomen is soft. Musculoskeletal: Right lower leg: No edema. Left lower leg: No edema. Skin: General: Skin is warm and dry. Capillary Refill: Capillary refill takes less than 2 seconds. Neurological: Mental Status: She is alert. Mental status is at baseline. Motor: Weakness present. Coordination: Coordination abnormal. Gait: Gait abnormal. Some elements from the note on 10/03/22 have not changed and have been copied from that note. Any changes in condition have been addressed and charted accordingly. POC discussed with appropriate parties and nursing staff. Electronically signed by Belinda Crespo APRN.C (more content not included)... [facility] 10-03-2022 Note HNO ID: [id number] Author: Belinda Crespo APRN.CNP Service: ? Author Type: Nurse Practitioner Type: Progress Notes Filed: 10/03/2022 2:33 PM Note Text: Connected Care Unit Progress Note Patient Name: Cheryl Scruggs Patient Facility: [facility] Admit Date 09/24/22 Level of Care: Skilled SNF Attending: Saroj Kohli M.D. Service Date: 10/03/2022 Code Status: Chief Complaint: Evaluation regarding oral thrush ASSESSMENT AND PLAN Oral thrush (primary encounter diagnosis) Oral thrush present to tongue, eating is decreased either 2/2 oral thrush vs. CVA - start nystatin swish and spit QID x 7 days - continue to monitor oral cavity Appointments for Next 60 Days Date Time Provider Location Dept Phone 10/06/2022 10:40 AM ANTIONETTE DORMAN [phone] 10/06/2022 2:35 PM SUSAN CHAVARRIA S 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 LKW 09/04/2022 evening/night. Mother dropped her off at the detention, and she was able to ambulate on her own. On the morning of 09/05/2022, her LLE was noted to be weak. She was noticed to be limping. Later in the day, her LUE was noted to be weak as well. Taken to [facility] ED and found to have a R sided pontine hypodensity on CTH, concerning of IPH (ICH score 2, infratentorial + GCS). Transferred to [facility] ICU for further care. Mother denies patient had past Hx of known vasculopathy, uncontrolled BP, strokes or seizures. Interval HPI: Pt. is alert, calm and cooperative during ROS and physical exam. There are no concerns for bowel or bladder issues. Pt. is eating a pureed diet and drinking fluids appropriately, no complications with nocturnal tube feeds at this time. Pts. baseline is ambulatory but is confined to a wheelchair at this time but is moving all limbs appropriately, no facial droop, pt. non-verbal which is baseline per family All labs and vital signs were reviewed. Pt. is participating in PT/OT without complications. Per nursing staff there are no acute changes to be addressed at this time. 09/29: No change in condition, pt. laughing and smiling during exam, moving all extremities, no change in neuro exam. Abdominal binder applied so pt. does not pull out G-tube. Pt. hemodynamically stable, afebrile, no leukocytosis. Will continue to monitor CBC/BMP and PT/OT. 10/03: Oral thrush present to tongue, eating is decreased either 2/2 oral thrush vs. CVA. Will start nystatin swish and spit QID x 7 days and continue to monitor oral cavity. No acute issues at this time. PAST MEDICAL HISTORY Diagnosis Date Anemia Cholelithiasis [place] de Hastings syndrome GERD (gastroesophageal reflux disease) Pyloric stenosis SUBJECTIVE: Review of Systems Unable to perform ROS: Patient nonverbal No reports of falls/injuries, changes in cognition/behaviors, or any uncontrolled pain exacerbations. Medications: Medications listed in Epic during SNF admission may not be current. Refer to facility record. Patient records, current medications, most recent labs, family/social history (unchanged) Reviewed. Refer to facility records. OBJECTIVE: Labs/diagnostics: reviewed Physical Exam: Physical Exam Constitutional: General: She is not in acute distress. Appearance: She is not toxic-appearing. HENT: Mouth/Throat: Mouth: Mucous membranes are dry. Comments: oral thrush present Eyes: Conjunctiva/sclera: Conjunctivae normal. Cardiovascular: Rate and Rhythm: Normal rate. Pulses: Normal pulses. Heart sounds: Normal heart sounds. Pulmonary: Effort: Pulmonary effort is normal. Breath sounds: Normal breath sounds. Abdominal: General: Bowel sounds are normal. Palpations: Abdomen is soft. Musculoskeletal: Right lower leg: No edema. Left lower leg: No edema. Skin: General: Skin is warm and dry. Capillary Refill: Capillary refill takes less than 2 seconds. Neurological: Mental Status: She is alert. Mental status is at baseline. Motor: Weakness present. Coordination: Coordination abnormal. Gait: Gait abnormal. Some elements from the note on 09/29/22 have not changed and have been copied from that note. Any changes in condition have been addressed and charted accordingly. POC discussed with appropriate parties and nursing staff. Electronically signed by Belinda Crespo APRN.ODALYS [facility] 10-03-2022 History of Presen t illness Narrative Images from the original note were not included. Connected Care Unit Progress Note Patient Name: Cheryl Scruggs Patient Facility: [facility] Admit Date 09/24/22 Level of Care: Skilled SNF Attending: Saroj Kohli M.D. Service Date: 10/03/2022 Code Status: Chief Complaint: Evaluation regarding oral thrush ASSESSMENT AND PLAN Oral thrush (primary encounter diagnosis) Oral thrush present to tongue, eating is decreased either 2/2 oral thrush vs. CVA - start nystatin swish and spit QID x 7 days - continue to monitor oral cavity Appointments for Next 60 Days Date Time Provider Location Dept Phone 10/06/2022 10:40 AM ANTIONETTE DORMAN [phone] 10/06/2022 2:35 PM SUSAN CHAVARRIA S 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 LKW 09/04/2022 evening/night. Mother dropped her off at the detention, and she was able to ambulate on her own. On the morning of 09/05/2022, her LLE was noted to be weak. She was noticed to be limping. Later in the day, her LUE was noted to be weak as well. Taken to [facility] ED and found to have a R sided pontine hypodensity on CTH, concerning of IPH (ICH score 2, infratentorial + GCS). Transferred to [facility] ICU for further care. Mother denies patient had past Hx of known vasculopathy, uncontrolled BP, strokes or seizures. Interval HPI: Pt. is alert, calm and cooperative during ROS and physical exam. There are no concerns for bowel or bladder issues. Pt. is eating a pureed diet and drinking fluids appropriately, no complications with nocturnal tube feeds at this time. Pts. baseline is ambulatory but is confined to a wheelchair at this time but is moving all limbs appropriately, no facial droop, pt. non-verbal which is baseline per family All labs and vital signs were reviewed. Pt. is participating in PT/OT without complications. Per nursing staff there are no acute changes to be addressed at this time. 09/29: No change in condition, pt. laughing and smiling during exam, moving all extremities, no change in neuro exam. Abdominal binder applied so pt. does not pull out G-tube. Pt. hemodynamically stable, afebrile, no leukocytosis. Will continue to monitor CBC/BMP and PT/OT. 10/03: Oral thrush present to tongue, eating is decreased either 2/2 oral thrush vs. CVA. Will start nystatin swish and spit QID x 7 days and continue to monitor oral cavity. No acute issues at this time. PAST MEDICAL HISTORY Diagnosis Date Anemia Cholelithiasis Edwina de Hastings syndrome GERD (gastroesophageal reflux disease) Pyloric stenosis SUBJECTIVE: Review of Systems Unable to perform ROS: Patient nonverbal No reports of falls/injuries, changes in cognition/behaviors, or any uncontrolled pain exacerbations. Medications: Medications listed in Epic during SNF admission may not be current. Refer to facility record. Patient records, current medications, most recent labs, family/social history (unchanged) Reviewed. Refer to facility records. OBJECTIVE: Labs/diagnostics: reviewed Physical Exam: Physical Exam Constitutional: General: She is not in acute distress. Appearance: She is not toxic-appearing. HENT: Mouth/Throat: Mouth: Mucous membranes are dry. Comments: oral thrush present Eyes: Conjunctiva/sclera: Conjunctivae normal. Cardiovascular: Rate and Rhythm: Normal rate. Pulses: Normal pulses. Heart sounds: Normal heart sounds. Pulmonary: Effort: Pulmonary effort is normal. Breath sounds: Normal breath sounds. Abdominal: General: Bowel sounds are normal. Palpations: Abdomen is soft. Musculoskeletal: Right lower leg: No edema. Left lower leg: No edema. Skin: General: Skin is warm and dry. Capillary Refill: Capillary refill takes less than 2 seconds. Neurological: Mental Status: She is alert. Mental status is at baseline. Motor: Weakness present. Coordination: Coordination abnormal. Gait: Gait abnormal. Some elements from the note on 09/29/22 have not changed and have been copied from that note. Any changes in condition have been addressed and charted accordingly. POC discussed with appropriate parties and nursing staff. Electronically signed by Belinda Crespo APRN.PARACHUTE REPAIRER documented in this encounter [facility] 09-29-2022 Note HNO ID: [id number] Author: Belinda Crespo APRN.ODALYS Service: ? Author Type: Nurse Practitioner Type: Progress Notes Filed: 09/29/2022 2:42 PM Note Text: Connected Care Unit Progress Note Patient Name: Cheryl Scruggs Patient Facility: [facility] Admit Date 09/24/22 Level of Care: Skilled SNF Attending: Saroj Kohli M.D. 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 symptoms began with lt. leg limp then lt. sided arm weakness, send to ED where CT sudha showed Right-sided nontraumatic intracerebral hemorrhage of brainstem resulting dysphagia present, G-tube placed on 09/20 09/26: Pts. baseline is ambulatory but is confined to a wheelchair at this time but is moving all limbs appropriately, no facial droop, pt. non-verbal which is baseline per family, pureed diet at this time and is tolerating without complications 09/29: No change in condition, pt. laughing and smiling during exam, moving all extremities, no change in neuro exam - continue heparin for DVT prophylaxis - continue to advance diet - continue nocturnal feeds - continue PT/OT - f/u with neuro as scheduled - f/u with GI as scheduled for DM-DELGAD[place]O button exchange in 4-6 weeks Appointments for Next 60 Days Date Time Provider Location Dept Phone 10/06/2022 10:40 AM ANTIONETTE DORMAN [phone] 10/06/2022 11:35 AM SUSAN CHAVARRIA S [facility] [phone] HPI: (Per Discharge summary) Ms Scruggs is a 37 yo with [place] de Hastings syndrome (baseline non-verbal and with developmental delay, otherwise 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 LKW 09/04/2022 evening/night. Mother dropped her off at the detention, and she was able to ambulate on her own. On the morning of 09/05/2022, her LLE was noted to be weak. She was noticed to be limping. Later in the day, her LUE was noted to be weak as well. Taken to [facility] ED and found to have a R sided pontine hypodensity on CTH, concerning of IPH (ICH score 2, infratentorial + GCS). Transferred to [facility] ICU for further care. Mother denies patient had past Hx of known vasculopathy, uncontrolled BP, strokes or seizures. Interval HPI: Pt. is alert, calm and cooperative during ROS and physical exam. There are no concerns for bowel or bladder issues. Pt. is eating a pureed diet and drinking fluids appropriately, no complications with nocturnal tube feeds at this time. Pts. baseline is ambulatory but is confined to a wheelchair at this time but is moving all limbs appropriately, no facial droop, pt. non-verbal which is baseline per family All labs and vital signs were reviewed. Pt. is participating in PT/OT without complications. Per nursing staff there are no acute changes to be addressed at this time. 09/29: No change in condition, pt. laughing and smiling during exam, moving all extremities, no change in neuro exam. Abdominal binder applied so pt. does not pull out G-tube. Pt. hemodynamically stable, afebrile, no leukocytosis. Will continue to monitor CBC/BMP and PT/OT. PAST MEDICAL HISTORY Diagnosis Date Anemia Cholelithiasis Edwina de Hastings syndrome GERD (gastroesophageal reflux disease) Pyloric stenosis SUBJECTIVE: Review of Systems Unable to perform ROS: Patient nonverbal No reports of falls/injuries, changes in cognition/behaviors, or any uncontrolled pain exacerbations. Medications: Medications listed in Epic during SNF admission may not be current. Refer to facility record. Patient records, current medications, most recent labs, family/social history (unchanged) Reviewed. Refer to facility records. OBJECTIVE: Labs/diagnostics: reviewed Physical Exam: Physical Exam Constitutional: General: She is not in acute distress. Appearance: She is not toxic-appearing. HENT: Mouth/Throat: Mouth: Mucous membranes are moist. Pharynx: Oropharynx is clear. Eyes: Conjunctiva/sclera: Conjunctivae normal. Cardiovascular: Rate and Rhythm: Normal rate. Pulses: Normal pulses. Heart sounds: Normal heart sounds. Pulmonary: Effort: Pulmonary effort is normal. Breath sounds: Normal breath sounds. Abdominal: General: Bowel sounds are normal. Palpations: Abdomen is soft. Musculoskeletal: Right lower leg: No edema. Left lower leg: No edema. Skin: General: Skin is warm and dry. Capillary Refill: Capillary refill takes less than 2 seconds. Neurological: Mental Status: She is alert. Mental status is at baseline. Motor: Weakness present. Coordination: Coordination abnormal. Gait: Gait abnormal. Some elements from the note on 09/26/22 have not changed and have been copied from that note. A (more content not included)... [facility] 09-29-2022 History of Presen t illness Narrative Images from the original note were not included. Connected Care Unit Progress Note Patient Name: Cheryl Scruggs Patient Facility: [facility] Admit Date 09/24/22 Level of Care: Skilled SNF Attending: Saroj Kohli M.D. 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 symptoms began with lt. leg limp then lt. sided arm weakness, send to ED where CT sudha showed Right-sided nontraumatic intracerebral hemorrhage of brainstem resulting dysphagia present, G-tube placed on 09/20 09/26: Pts. baseline is ambulatory but is confined to a wheelchair at this time but is moving all limbs appropriately, no facial droop, pt. non-verbal which is baseline per family, pureed diet at this time and is tolerating without complications 09/29: No change in condition, pt. laughing and smiling during exam, moving all extremities, no change in neuro exam - continue heparin for DVT prophylaxis - continue to advance diet - continue nocturnal feeds - continue PT/OT - f/u with neuro as scheduled - f/u with GI as scheduled for DM-DELGAD[place]O button exchange in 4-6 weeks Appointments for Next 60 Days Date Time Provider Location Dept Phone 10/06/2022 10:40 AM LAKIA ANTIONETTEEMRE DUNN [phone] 10/06/2022 11:35 AM SUSAN CHAVARRIA Trevon S 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 LKW 09/04/2022 evening/night. Mother dropped her off at the detention, and she was able to ambulate on her own. On the morning of 09/05/2022, her LLE was noted to be weak. She was noticed to be limping. Later in the day, her LUE was noted to be weak as well. Taken to [facility] ED and found to have a R sided pontine hypodensity on CTH, concerning of IPH (ICH score 2, infratentorial + GCS). Transferred to [facility] ICU for further care. Mother denies patient had past Hx of known vasculopathy, uncontrolled BP, strokes or seizures. Interval HPI: Pt. is alert, calm and cooperative during ROS and physical exam. There are no concerns for bowel or bladder issues. Pt. is eating a pureed diet and drinking fluids appropriately, no complications with nocturnal tube feeds at this time. Pts. baseline is ambulatory but is confined to a wheelchair at this time but is moving all limbs appropriately, no facial droop, pt. non-verbal which is baseline per family All labs and vital signs were reviewed. Pt. is participating in PT/OT without complications. Per nursing staff there are no acute changes to be addressed at this time. 09/29: No change in condition, pt. laughing and smiling during exam, moving all extremities, no change in neuro exam. Abdominal binder applied so pt. does not pull out G-tube. Pt. hemodynamically stable, afebrile, no leukocytosis. Will continue to monitor CBC/BMP and PT/OT. PAST MEDICAL HISTORY Diagnosis Date Anemia Cholelithiasis [place] de Hastings syndrome GERD (gastroesophageal reflux disease) Pyloric stenosis SUBJECTIVE: Review of Systems Unable to perform ROS: Patient nonverbal No reports of falls/injuries, changes in cognition/behaviors, or any uncontrolled pain exacerbations. Medications: Medications listed in [facility] during SNF admission may not be current. Refer to facility record. Patient records, current medications, most recent labs, family/social history (unchanged) Reviewed. Refer to facility records. OBJECTIVE: Labs/diagnostics: reviewed Physical Exam: Physical Exam Constitutional: General: She is not in acute distress. Appearance: She is not toxic-appearing. HENT: Mouth/Throat: Mouth: Mucous membranes are moist. Pharynx: Oropharynx is clear. Eyes: Conjunctiva/sclera: Conjunctivae normal. Cardiovascular: Rate and Rhythm: Normal rate. Pulses: Normal pulses. Heart sounds: Normal heart sounds. Pulmonary: Effort: Pulmonary effort is normal. Breath sounds: Normal breath sounds. Abdominal: General: Bowel sounds are normal. Palpations: Abdomen is soft. Musculoskeletal: Right lower leg: No edema. Left lower leg: No edema. Skin: General: Skin is warm and dry. Capillary Refill: Capillary refill takes less than 2 seconds. Neurological: Mental Status: She is alert. Mental status is at baseline. Motor: Weakness present. Coordination: Coordination abnormal. Gait: Gait abnormal. Some elements from the note on 09/26/22 have not changed and have been copied from that note. Any changes in condition have been addressed and charted accordingly. POC discussed with appropriate parties and nursing staff. Electronically signed by Belinda Crespo APRN.PARACHUTE REPAIRER documented in this encounter [facility] 09-26-2022 Note HNO ID: [id number] Author: Belinda Crespo APRN.ODALYS Service: ? Author Type: Nurse Practitioner Type: Progress Notes Filed: 09/26/2022 12:45 PM Note Text: Connected Care Unit Progress Note Patient Name: Cheryl Scruggs Patient Facility: [facility] Admit Date 09/24/22 Level of Care: Skilled SNF Attending: Saroj Kohli M.D. 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 symptoms began with lt. leg limp then lt. sided arm weakness, send to ED where CT sudha showed Right-sided nontraumatic intracerebral hemorrhage of brainstem resulting dysphagia present, G-tube placed on 09/20 09/26: Pts. baseline is ambulatory but is confined to a wheelchair at this time but is moving all limbs appropriately, no facial droop, pt. 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 LKW 09/04/2022 evening/night. Mother dropped her off at the detention, and she was able to ambulate on her own. On the morning of 09/05/2022, her LLE was noted to be weak. She was noticed to be limping. Later in the day, her LUE was noted to be weak as well. Taken to [facility] ED and found to have a R sided pontine hypodensity on CTH, concerning of IPH (ICH score 2, infratentorial + GCS). Transferred to [facility] ICU for further care. Mother denies patient had past Hx of known vasculopathy, uncontrolled BP, strokes or seizures. Interval HPI: Pt. is alert, calm and cooperative during ROS and physical exam. There are no concerns for bowel or bladder issues. Pt. is eating a pureed diet and drinking fluids appropriately, no complications with nocturnal tube feeds at this time. Pts. baseline is ambulatory but is confined to a wheelchair at this time but is moving all limbs appropriately, no facial droop, pt. non-verbal which is baseline per family All labs and vital signs were reviewed. Pt. is participating in PT/OT without complications. Per nursing staff there are no acute changes to be addressed at this time. PAST MEDICAL HISTORY Diagnosis Date Anemia Cholelithiasis Edwina de Hastings syndrome GERD (gastroesophageal reflux disease) Pyloric stenosis SUBJECTIVE: Review of Systems Unable to perform ROS: Patient nonverbal No reports of falls/injuries, changes in cognition/behaviors, or any uncontrolled pain exacerbations. Medications: Medications listed in [facility] during SNF admission may not be current. Refer to facility record. Patient records, current medications, most recent labs, family/social history (unchanged) Reviewed. Refer to facility records. OBJECTIVE: Labs/diagnostics: reviewed Physical Exam: Physical Exam Constitutional: General: She is not in acute distress. Appearance: She is not toxic-appearing. HENT: Mouth/Throat: Mouth: Mucous membranes are moist. Pharynx: Oropharynx is clear. Eyes: Conjunctiva/sclera: Conjunctivae normal. Cardiovascular: Rate and Rhythm: Normal rate. Pulses: Normal pulses. Heart sounds: Normal heart sounds. Pulmonary: Effort: Pulmonary effort is normal. Breath sounds: Normal breath sounds. Abdominal: General: Bowel sounds are normal. Palpations: Abdomen is soft. Musculoskeletal: Right lower leg: No edema. Left lower leg: No edema. Skin: General: Skin is warm and dry. Capillary Refill: Capillary refill takes less than 2 seconds. Neurological: Mental Status: She is alert. Mental status is at baseline. Motor: Weakness present. Coordination: Coordination abnormal. Gait: Gait abnormal. POC discussed with appropriate pa (more content not included)... [facility] 09-26-2022 History of Presen t illness Narrative Images from the original note were not included. Connected Care Unit Progress Note Patient Name: Cheryl Scruggs Patient Facility: [facility] Admit Date 09/24/22 Level of Care: Skilled SNF Attending: Saroj Kohli M.D. 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 symptoms began with lt. leg limp then lt. sided arm weakness, send to ED where CT sudha showed Right-sided nontraumatic intracerebral hemorrhage of brainstem resulting dysphagia present, G-tube placed on 09/20 09/26: Pts. baseline is ambulatory but is confined to a wheelchair at this time but is moving all limbs appropriately, no facial droop, pt. non-verbal which is baseline per family, pureed diet at this time and is tolerating without complications - continue heparin for DVT prophylaxis - continue to advance diet - continue nocturnal feeds - continue PT/OT - f/u with neuro as scheduled - f/u with GI as scheduled for DM-DELGAD[place]O button exchange in 4-6 weeks (Q87.19) [place] de Hastings syndrome Baseline is ambulatory with aphasia, however per family pt. 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 LKW 09/04/2022 evening/night. Mother dropped her off at the detention, and she was able to ambulate on her own. On the morning of 09/05/2022, her LLE was noted to be weak. She was noticed to be limping. Later in the day, her LUE was noted to be weak as well. Taken to [facility] ED and found to have a R sided pontine hypodensity on CTH, concerning of IPH (ICH score 2, infratentorial + GCS). Transferred to [facility] ICU for further care. Mother denies patient had past Hx of known vasculopathy, uncontrolled BP, strokes or seizures. Interval HPI: Pt. is alert, calm and cooperative during ROS and physical exam. There are no concerns for bowel or bladder issues. Pt. is eating a pureed diet and drinking fluids appropriately, no complications with nocturnal tube feeds at this time. Pts. baseline is ambulatory but is confined to a wheelchair at this time but is moving all limbs appropriately, no facial droop, pt. non-verbal which is baseline per family All labs and vital signs were reviewed. Pt. is participating in PT/OT without complications. Per nursing staff there are no acute changes to be addressed at this time. PAST MEDICAL HISTORY Diagnosis Date Anemia Cholelithiasis Edwina de Hastings syndrome GERD (gastroesophageal reflux disease) Pyloric stenosis SUBJECTIVE: Review of Systems Unable to perform ROS: Patient nonverbal No reports of falls/injuries, changes in cognition/behaviors, or any uncontrolled pain exacerbations. Medications: Medications listed in [facility] during SNF admission may not be current. Refer to facility record. Patient records, current medications, most recent labs, family/social history (unchanged) Reviewed. Refer to facility records. OBJECTIVE: Labs/diagnostics: reviewed Physical Exam: Physical Exam Constitutional: General: She is not in acute distress. Appearance: She is not toxic-appearing. HENT: Mouth/Throat: Mouth: Mucous membranes are moist. Pharynx: Oropharynx is clear. Eyes: Conjunctiva/sclera: Conjunctivae normal. Cardiovascular: Rate and Rhythm: Normal rate. Pulses: Normal pulses. Heart sounds: Normal heart sounds. Pulmonary: Effort: Pulmonary effort is normal. Breath sounds: Normal breath sounds. Abdominal: General: Bowel sounds are normal. Palpations: Abdomen is soft. Musculoskeletal: Right lower leg: No edema. Left lower leg: No edema. Skin: General: Skin is warm and dry. Capillary Refill: Capillary refill takes less than 2 seconds. Neurological: Mental Status: She is alert. Mental status is at baseline. Motor: Weakness present. Coordination: Coordination abnormal. Gait: Gait abnormal. POC discussed with appropriate parties and nursing staff. Electronically signed by Belinda Crespo APRN.PARACHUTE REPAIRER documented in this encounter [facility] 09-25-2022 History of Presen t illness Narrative [facility] NOTE NAME: CHERYL SCRUGGS NO.: [id number] DATE OF SERVICE: 09/25/2022 [facility] DATE OF : 1985 New Patient History and Physical HISTORY OF PRESENT ILLNESS: The patient is a 37-year-old female who was admitted to us from [facility] with a diagnosis of acute right-sided brain stem intracerebral hemorrhage with left-sided weakness, dysphagia with status post placement of gastrostomy feeding tube, Edwina de Hastings syndrome, remote status post recent Stefanie fundoplication, electrolyte imbalance with hypokalemia and hypomagnesemia, thrombocytopenia, GERD, cholelithiasis, chronic anemia, remote history of pyloric stenosis, and generalized weakness. She was initially admitted to the hospital after developing left-sided weakness. CT scan at an outside hospital revealed an acute right amaris intracranial hemorrhage. She was transferred to the [facility], where she had repeat scans and MRI, which confirmed the presence of the acute intraparenchymal bleed. Further evaluation, including cerebral angiogram revealed no evidence of underlying pathology or vascular malformation. Due to dysphagia and concerns for malnutrition, she initially had a [facility] followed by placement of gastrostomy feeding tube. She was given appropriate supplementation for hypomagnesemia and hypokalemia. She was followed closely by the neurosurgery service. Her condition was stabilized and improved and she is now admitted to our facility for continued therapy. REVIEW OF SYSTEMS: She is currently sitting up in bed. She is awake and looking around. She is nonverbal at baseline. She does not appear to be in any distress. Her father is present and is able to provide reliable history and information. Once again the patient does have history of Norfolk de Hastings syndrome and is nonverbal with mild delay as a baseline. Other than dental extraction and status post Stefanie fundoplication for pyloric stenosis, she has had no prior surgeries. No past history of prior strokes or seizures. She is not a diabetic. She has no underlying cardiac history. No history of hypertension. No prior bleeding problems or blood clots. No thyroid problems. Prior to her current illness, she was eating and swallowing normally. However, the patient apparently has been refusing to eat or swallow over the weekend. FAMILY HISTORY: Significant for hypertension. SOCIAL/FUNCTIONAL HISTORY: She does not smoke or abuse alcohol. She had been living in a detention. MEDICATIONS: Colace 3 times a day, heparin 2500 units subcu b.i.d., linaclotide 290 mcg daily, lisinopril 5 mg daily for secondary hypertension, melatonin at h.s., multivitamin daily, olanzapine 15 mg daily, Singulair 10 mg daily, sucralfate 1 g before meals/3 times a day. ALLERGIES: No known drug allergies. EXAMINATION: Afebrile, vital signs stable. She is in no distress. The patient is sitting up in bed. She is nonverbal. HEENT: Extraocular movements appeared to be intact, sclerae nonicteric. Ears intact. Lungs: With mild upper rhonchi. Heart: Regular. Abdomen: Soft, nontender. Gastrostomy feeding tube present. Extremities: No edema. She does have left-sided weakness along with generalized weakness. IMPRESSION: 1. Acute right intraparenchymal hemorrhage to the amaris - evaluation in the hospital did not reveal any underlying etiology/vascular malformation. Monitor neurologic status closely for signs of recurrence or extension. She will follow up with neurosurgery as an outpatient. She is to undergo follow up MRI in several months. 2. Dysphagia with poor oral intake - she is status post placement of gastrostomy feeding tube. Once again, she has been refusing to eat or drink over the weekend. We will maintain nutrition and hydration via her gastrostomy feeding tube. 3. Hypertension - no past history of hypertension. Maintain current antihypertensive regimen, monitor blood pressure closely and make adjustments as needed. 4. Norfolk de Hastings syndrome - she is nonverbal with developmental delay as a baseline. Continue with current supportive care. 5. Functional assessment - she does have generalized weakness. Once again she will be receiving rehab services for overall strengthening and conditioning. Overall condition and prognosis is quite guarded. We will obtain followup labs including CBC and CMP. The goal is for her to return back to her detention if at all possible. Situation discussed at great length with the father. DICTATED BY: MD LINNETTE Smith/Cliff JOB# [id number] cc:Anne-Marie Amador documented in this encounter [facility] 09-12-2022 History of Past i llness Narrative Problem Noted Date Resolved Date Thrombocytopenia 09/12/2022 09/18/2022 Constipation 08/10/2009 02/15/2010 [place]stone 08/10/2009 04/01/2010 Abdominal pain 07/01/2009 10/03/2021 documented as of this encounter (statuses as of 09/21/2022) [facility]11-08[facility]2022 History of Past illness Narrative* Problem Noted Date Resolved Date Thrombocytopenia 09/12/2022 09/18/2022 Constipation 08/10/2009 02/15/2010 Gallstone 08/10/2009 04/01/2010 Abdominal pain 07/01/2009 10/03/2021 documented as of this encounter (statuses as of 09/26/2022) [facility] History of Past illness Narrative* Problem Noted Date Resolved Date Thrombocytopenia 09/12/2022 09/18/2022 Constipation 08/10/2009 02/15/2010 Gallstone 08/10/2009 04/01/2010 Abdominal pain 07/01/2009 10/03/2021 documented as of this encounter (statuses as of 09/26/2022) [facility] History of Past illness Narrative* Problem Noted Date Resolved Date Thrombocytopenia 09/12/2022 09/18/2022 Constipation 08/10/2009 02/15/2010 Gallstone 08/10/2009 04/01/2010 Abdominal pain 07/01/2009 10/03/2021 documented as of this encounter (statuses as of 09/29/2022) [address]08-2022 History of Past illness Narrative* Problem Noted Date Resolved Date Thrombocytopenia 09/12/2022 09/18/2022 Constipation 08/10/2009 02/15/2010 Gallstone 08/10/2009 04/01/2010 Abdominal pain 07/01/2009 10/03/2021 documented as of this encounter (statuses as of 10/03/2022) [address]08-2022 History of Past illness Narrative* Problem Noted Date Resolved Date Thrombocytopenia 09/12/2022 09/18/2022 Constipation 08/10/2009 02/15/2010 Gallstone 08/10/2009 04/01/2010 Abdominal pain 07/01/2009 10/03/2021 documented as of this encounter (statuses as of 10/10/2022) [address]08-2022 History of Past illness Narrative* Problem Noted Date Resolved Date Thrombocytopenia 09/12/2022 09/18/2022 Constipation 08/10/2009 02/15/2010 Gallstone 08/10/2009 04/01/2010 Abdominal pain 07/01/2009 10/03/2021 documented as of this encounter (statuses as of 10/12/2022) [address]08-2022 History of Past illness Narrative* Problem Noted Date Resolved Date Thrombocytopenia 09/12/2022 09/18/2022 Constipation 08/10/2009 02/15/2010 Gallstone 08/10/2009 04/01/2010 Abdominal pain 07/01/2009 10/03/2021 documented as of this encounter (statuses as of 10/17/2022) [address]08-2022 History of Past illness Narrative* Problem Noted Date Resolved Date Thrombocytopenia 09/12/2022 09/18/2022 Constipation 08/10/2009 02/15/2010 Gallstone 08/10/2009 04/01/2010 Abdominal pain 07/01/2009 10/03/2021 documented as of this encounter (statuses as of 10/24/2022) [address]08-2022 History of Past illness Narrative* Problem Noted Date Resolved Date Thrombocytopenia 09/12/2022 09/18/2022 Constipation 08/10/2009 02/15/2010 Gallstone 08/10/2009 04/01/2010 Abdominal pain 07/01/2009 10/03/2021 documented as of this encounter (statuses as of 10/25/2022) [address]08-2022 History of Past illness Narrative* Problem Noted Date Resolved Date Thrombocytopenia 09/12/2022 09/18/2022 Constipation 08/10/2009 02/15/2010 Gallstone 08/10/2009 04/01/2010 Abdominal pain 07/01/2009 10/03/2021 documented as of this encounter (statuses as of 11/10/2022) [address]08-2022 History of Past illness Narrative* Problem Noted Date Resolved Date Thrombocytopenia 09/12/2022 09/18/2022 Constipation 08/10/2009 02/15/2010 Gallstone 08/10/2009 04/01/2010 Abdominal pain 07/01/2009 10/03/2021 documented as of this encounter (statuses as of 11/23/2022) [address]08-2022 History of Past illness Narrative* Problem Noted Date Resolved Date Thrombocytopenia 09/12/2022 09/18/2022 Constipation 08/10/2009 02/15/2010 Gallstone 08/10/2009 04/01/2010 Abdominal pain 07/01/2009 10/03/2021 documented as of this encounter (statuses as of 11/24/2022) [address]08-2022 History of Past illness Narrative* Problem Noted Date Resolved Date Thrombocytopenia 09/12/2022 09/18/2022 Constipation 08/10/2009 02/15/2010 Gallstone 08/10/2009 04/01/2010 Abdominal pain 07/01/2009 10/03/2021 documented as of this encounter (statuses as of 11/27/2022) [address]08-2022 History of Past illness Narrative* Problem Noted Date Resolved Date Thrombocytopenia 09/12/2022 09/18/2022 Constipation 08/10/2009 02/15/2010 Gallstone 08/10/2009 04/01/2010 Abdominal pain 07/01/2009 10/03/2021 documented as of this encounter (statuses as of 11/28/2022) [address]08-2022 History of Past illness Narrative* Problem Noted Date Resolved Date Thrombocytopenia 09/12/2022 09/18/2022 Constipation 08/10/2009 02/15/2010 Gallstone 08/10/2009 04/01/2010 Abdominal pain 07/01/2009 10/03/2021 documented as of this encounter (statuses as of 12/01/2022) [address]08-2022 History of Past illness Narrative* Problem Noted Date Resolved Date Thrombocytopenia 09/12/2022 09/18/2022 Constipation 08/10/2009 02/15/2010 Gallstone 08/10/2009 04/01/2010 Abdominal pain 07/01/2009 10/03/2021 documented as of this encounter (statuses as of 12/13/2022) [address]08-2022 History of Past illness Narrative* Problem Noted Date Resolved Date Thrombocytopenia 09/12/2022 09/18/2022 Constipation 08/10/2009 02/15/2010 Gallstone 08/10/2009 04/01/2010 Abdominal pain 07/01/2009 10/03/2021 documented as of this encounter (statuses as of 12/13/2022) [address]08-2022 History of Past illness Narrative* Problem Noted Date Resolved Date Thrombocytopenia 09/12/2022 09/18/2022 Constipation 08/10/2009 02/15/2010 Gallstone 08/10/2009 04/01/2010 Abdominal pain 07/01/2009 10/03/2021 documented as of this encounter (statuses as of 12/13/2022) [address]08-2022 History of Past illness Narrative* Problem Noted Date Resolved Date Thrombocytopenia 09/12/2022 09/18/2022 Constipation 08/10/2009 02/15/2010 Gallstone 08/10/2009 04/01/2010 Abdominal pain 07/01/2009 10/03/2021 documented as of this encounter (statuses as of 12/25/2022) [address]08-2022 History of Past illness Narrative* Problem Noted Date Resolved Date Thrombocytopenia 09/12/2022 09/18/2022 Constipation 08/10/2009 02/15/2010 Gallstone 08/10/2009 04/01/2010 Abdominal pain 07/01/2009 10/03/2021 documented as of this encounter (statuses as of 12/28/2022) [place] [address] History of Past illness Narrative* Problem Noted Date Resolved Date Thrombocytopenia 09/12/2022 09/18/2022 Constipation 08/10/2009 02/15/2010 Gallstone 08/10/2009 04/01/2010 Abdominal pain 07/01/2009 10/03/2021 documented as of this encounter (statuses as of 01/05/2023) [facility] History of Past illness Narrative* Problem Noted Date Resolved Date Thrombocytopenia 09/12/2022 09/18/2022 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 09/06/2022 03/28/2023 Constipation 08/10/2009 02/15/2010 Gallstone 08/10/2009 04/01/2010 Abdominal pain 07/01/2009 10/03/2021 documented as of this encounter (statuses as of 04/05/2023) [facility] History of Past illness Narrative* Problem Noted Date Resolved Date Thrombocytopenia 09/12/2022 09/18/2022 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 09/06/2022 03/28/2023 Constipation 08/10/2009 02/15/2010 Gallstone 08/10/2009 04/01/2010 Abdominal pain 07/01/2009 10/03/2021 documented as of this encounter (statuses as of 04/06/2023) [facility] History of Past illness Narrative* Problem Noted Date Resolved Date Thrombocytopenia 09/12/2022 09/18/2022 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 09/06/2022 03/28/2023 Constipation 08/10/2009 02/15/2010 Gallstone 08/10/2009 04/01/2010 Abdominal pain 07/01/2009 10/03/2021 documented as of this encounter (statuses as of 04/19/2023) [facility] History of Past illness Narrative* Problem Noted Date Resolved Date Thrombocytopenia 09/12/2022 09/18/2022 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 09/06/2022 03/28/2023 Constipation 08/10/2009 02/15/2010 Gallstone 08/10/2009 04/01/2010 Abdominal pain 07/01/2009 10/03/2021 documented as of this encounter (statuses as of 04/27/2023) [facility] History of Past illness Narrative* Problem Noted Date Diagnosed Date Resolved Date Thrombocytopenia 09/12/2022 09/18/2022 Flaccid hemiplegia affecting left nondominant side 09/06/2022 03/28/2023 Constipation 08/10/2009 02/15/2010 Gallstone 08/10/2009 04/01/2010 Abdominal pain 07/01/2009 10/03/2021 documented as of this encounter (statuses as of 05/23/2023) [facility] History of Past illness Narrative* Problem Noted Date Diagnosed Date Resolved Date Thrombocytopenia 09/12/2022 09/18/2022 Flaccid hemiplegia affecting left nondominant side 09/06/2022 03/28/2023 Constipation 08/10/2009 02/15/2010 Gallstone 08/10/2009 04/01/2010 Abdominal pain 07/01/2009 10/03/2021 documented as of this encounter (statuses as of 09/24/2023) [facility] History of Past illness Narrative* Problem Noted Date Diagnosed Date Resolved Date Thrombocytopenia 09/12/2022 09/18/2022 Flaccid hemiplegia affecting left nondominant side 09/06/2022 03/28/2023 Constipation 08/10/2009 02/15/2010 Gallstone 08/10/2009 04/01/2010 Abdominal pain 07/01/2009 10/03/2021 documented as of this encounter (statuses as of 09/24/2023) [facility]10-14-2022 NoteSurgical Attestation: I have reviewed the patient's History and Physical Examination. I have personally seen and evaluated the patient, repeating delgadillo portions. There is no significant interval change. Surgery is still indicated. Yes Consent reviewed and signed by patient/family: Yes Operative site verified and marked: site verified but not marked as not anatomically possible Suri Reynolds DDS 08/18/2022 12:17 [facility] [id number] History of Present illness Narrative* Nilda Davenport DDS - 08/18/2022 7:19 AM EDT Surgical Case Number Data Unavailable Operating Room Data Unavailable Preoperative Diagnosis(es): Caries [K02.9] Gingivitis K05.0 Edwina de Hastings Syndrome Q87.19 Profound Intellectual Disability F 79 Postoperative Diagnosis(es): Edwina de Hastings Syndrome Q87.19 Profound Intellectual Disability F 79 @ENCORD@ Surgeon: Nilda Alvarado DDS Machine Packaging Technician Surgeon: Suri Reynolds DDS Anesthesia: General- Nasal ETT Estimated Blood Loss: 5 cc IV Fluids: 300 cc Urine Output: Not measured. Findings: The patient was brought to the operating room and placed in the supine position on the operating room table. Following satisfactory induction of GA. The patient was intubated with a nasal endotracheal tube. She was then prepped and drapped in the usual sterile fashion for dental procedures. Full mouth series were then taken and an oral examination was completed. A moistened throat pack was then placed. Full mouth scaling and root planing was then performed. The radiographs were examined by the attending and the resident and used in conjunction with th oral exam to formulate a treatment plan. The restorative aspect of the treatment plan included the following: Composite Restorations: #6 FD,11 FD, 23 FD, 10 FD, 26 FD. Amalgam Restorations: #2 B5, 18 OB, 12 O. These restorations were placed following excavation of the carious lesions on each tooth. The surgical aspect of the treatment plan included the following extraction(s) and/or root removal:Teeth # 5 and #K. Gel foam and 3.0 chromic gut sutures were placed in all extraction sites. NOTE: Decay on #5 was very deep, pulp exposed, ext was recommended. The remaining dentition was then polished with prophy paste. The oral cavity was irrigated and suctioned then the throat pack was removed. Fluoride treament was placed on the remaining dentition. Thepatient tolerated the procedure well was extubated in the operating room, and taken to the PACU in stable condition. Complications: None Status at end of surgery: Stable Medications: Medications Taking Outpatient Medications Marked as Taking for the 08/18/22 encounter (Hospital Encounter) Medication Sig Dispense Refill * omeprazole (PRILOSEC) 20 MG capsule * sucralfate (CARAFATE) 1 GM/10ML oral suspension TAKE 2 TEASPOONSFUL (1GM) BY MOUTH 3 TIMES DAILY BEFORE MEALS CARAFATE * Nortrel 1/35, 28, 1-35 MG-MCG tablet TAKE ONE TABLET BY MOUTH ONCE DAILY FOR 21 DAYS, SKIP SUGAR PILLS. TAKE SUGAR PILLS EVERY THIRD PACK * OLANZapine (ZyPREXA) 10 MG tablet Take 10 mg by mouth daily. * sucralfate (CARAFATE) 1 GM tablet Take 1 g by mouth 3 times daily. * ranitidine (ZANTAC) 75 MG tablet Take 75 mg by mouth 2 times daily. Dictated by: Suri Reynolds DDS: Nilda Alvarado DDS was present for the critical portions of the procedure. Suri Reynolds DDS 08/18/2022 2:36 PM documented in this [id number] NotePatient is vaccinated for COVID-19. Vaccinations are documented in Epic. Vaccination record scanned into ISORG. Patient does not require pre-op COVID testing per current guidelines.[facility] [id number] Telephone encounter Note* Telephone Encounter - Milena Daly RN - 08/11/2022 11:13 AM EDT Patient is vaccinated for COVID-19. Vaccinations are documented in Epic. Vaccination record scannedinto ISORG. Patient does not require pre-op COVID testing per current guidelines. [id number] Miscellaneous Notes* Telephone Encounter - Milena Daly RN - 08/11/2022 11:13 AM EDT Patient is vaccinated for COVID-19. Vaccinations are documented in Epic. Vaccination record scannedinto ISORG. Patient does not require pre-op COVID testing per current guidelines. 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 [place] de Hastings syndrome Other specified congenital anomalies Secondary hypertension Other secondary hypertension, unspecified Status post Stefanie fundoplication [facility] 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 [facility]* Diagnosis Oral thrush- Primary Candidiasis of mouth [facility]* 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 [facility]* 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 [facility]* Diagnosis OPENED IN ERROR- Primary To allow closing an encounter opened in error (used in SmartSet) 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 Secondary hypertension Other secondary hypertension, unspecified [facility]* 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 [facility] noteNo assessment information availableMansfield Hospital Work Phone: Evaluation note* Diagnosis Skin breakdown at gastrostomy tube site (HCC)- Primary Gastrostomy complication, unspecified S/P Stefanie fundoplication (with gastrostomy tube placement) (HCC) 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) [facility]* Diagnosis 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) [facility]* 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 [facility]* Diagnosis Slow transit constipation- Primary Dehydration Malnutrition of mild degree (HCC) Malnutrition of mild degree [facility]* Diagnosis Gastroesophageal reflux disease without esophagitis- Primary Esophageal reflux Slow transit constipation 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, late effect of cerebrovascular disease [facility]* Diagnosis Encounter for breast and pelvic examination- Primary [facility] No data available for this section [facility] HospitalInstructionsNot on filedocumented in this encounter [facility] No data available for this section [facility] HospitalReason for referral (narrative)* Outpatient Procedure (Routine) - Pending Review Specialty Diagnoses / Procedures Referred By Ivory rodriguez Referred To Contact [facility] Diagnoses Edwina de Hastings syndrome Procedures EGD - THERAPEUTIC, EUS, OR TUBE INTERVENTIONS CHANGE GASTRONOMY TUBE Keith Mchugh MD [address] [place] [address] [address] Referral ID Status Reason Start Date Expiration Date Visits Requested Visits Authorized [id number] Pending Review Auto-Generat ed Referral 09/20/2023 1 1 [facility] for referral (narrative)* Outpatient Procedure (Routine) - Closed Specialty Diagnoses / Procedures Referred By Ivory rodriguez Referred To Contact [facility] Diagnoses Norfolk de Hastings syndrome Procedures EGD - THERAPEUTIC, EUS, OR TUBE INTERVENTIONS CHANGE GASTRONOMY TUBE Keith Mchugh MD [address] [place] [address] [place] [address] [place] [address] Referral ID Status Reason Start Date Expiration Date V isits Requested Visits Authorized [id number] Closed Auto-Generate d Referral 10/20/2022 09/20/2023 1 1 [facility] for visit Narrative* Outpatient Procedure (Routine) - Closed Specialty Diagnoses / Procedures Referred By Ivory rodriguez Referred To Contact [facility] Diagnoses Edwina de Hastings syndrome Procedures EGD - THERAPEUTIC, EUS, OR TUBE INTERVENTIONS CHANGE GASTRONOMY TUBE Keith Mchugh MD [address] [place] [address] [facility] [address] [place] [address] Referral ID Status Reason Start Date Expiration Date V isits Requested Visits Authorized [id number] Closed Auto-Generate d Referral 10/20/2022 09/20/2023 1 1 [facility] Reason for Referral Specialty Diagnoses / Procedures Referred By Contac t Referred To Contact [facility] Diagnoses 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) Procedures MRI BRAIN WO/W IVCON MRI BRAIN BRAIN STEM W/O W/CONTRAST MATERIAL AnajesusSusan, GOLD MARKER.[employer]ACH[employer] REPA[employer] [address] [place] [address] Mr Imaging Referral ID Status Reason Start Date Expiration Date V isits Requested Visits Authorized [id number] Closed Auto-Generate d Referral 10/11/2022 11/10/2023 1 1 Summary Purpose Family History No Family History Records FoundNo Family History Records FoundNo Family History Records Found No data available for this section No Family History Records FoundNo Family History Records FoundNo Family History Records Found Advance Directives No Advanced Directives Records Found Advance Directive Response Recorded Date/ Time Advance Directives No November 23, 2022 3:27pm Additional Source Comments Source Comments (unrecognize d section and content) In the event this informatio n is protected by the Federal Confidentiality of Alcohol and Drug Abuse Patient Records regulations: The Federal rules restrict any use of the information to criminally investigate or prosecute any alcohol or drug abuse patient.[facility] Rehabilitation[facility] the event this information is protected by the Federal Confidentiality of Alcohol and Drug Abuse Patient Records regulations: The Federal rules restrict any use of the information to criminally investigate or prosecute any alcohol or drug abuse patient.[facility] RehabilitationIn the event this information is protected by the Federal Confidentiality of Alcohol and Drug Abuse Patient Records regulations: The Federal rules restrict any use of the information to criminally investigate or prosecute any alcohol or drug abuse patient.[facility] RehabilitationIn the event this information is protected by the Federal Confidentiality of Alcohol and Drug Abuse Patient Records regulations: The Federal rules restrict any use of the information to criminally investigate or prosecute any alcohol or drug abuse patient.[facility] RehabilitationIn the event this information is protected by the Federal Confidentiality of Alcohol and Drug Abuse Patient Records regulations: The Federal rules restrict any use of the information to criminally investigate or prosecute any alcohol or drug abuse patient.[facility] RehabilitationIn the event this information is protected by the Federal Confidentiality of Alcohol and Drug Abuse Patient Records regulations: The Federal rules restrict any use of the information to criminally investigate or prosecute any alcohol or drug abuse patient.[facility] RehabilitationIn the event this information is protected by the Federal Confidentiality of Alcohol and Drug Abuse Patient Records regulations: The Federal rules restrict any use of the information to criminally investigate or prosecute any alcohol or drug abuse patient.[facility] RehabilitationIn the event this information is protected by the Federal Confidentiality of Alcohol and Drug Abuse Patient Records regulations: The Federal rules restrict any use of the information to criminally investigate or prosecute any alcohol or drug abuse patient.[facility] RehabilitationIn the event this information is protected by the Federal Confidentiality of Alcohol and Drug Abuse Patient Records regulations: The Federal rules restrict any use of the information to criminally investigate or prosecute any alcohol or drug abuse patient.[facility] RehabilitationIn the event this information is protected by the Federal Confidentiality of Alcohol and Drug Abuse Patient Records regulations: The Federal rules restrict any use of the information to criminally investigate or prosecute any alcohol or drug abuse patient.[facility] RehabilitationIn the event this information is protected by the Federal Confidentiality of Alcohol and Drug Abuse Patient Records regulations: The Federal rules restrict any use of the information to criminally investigate or prosecute any alcohol or drug abuse patient.[facility] RehabilitationIn the event this information is protected by the Federal Confidentiality of Alcohol and Drug Abuse Patient Records regulations: The Federal rules restrict any use of the information to criminally investigate or prosecute any alcohol or drug abuse patient.[facility] RehabilitationIn the event this information is protected by the Federal Confidentiality of Alcohol and Drug Abuse Patient Records regulations: The Federal rules restrict any use of the information to criminally investigate or prosecute any alcohol or drug abuse patient.[facility] RehabilitationIn the event this information is protected by the Federal Confidentiality of Alcohol and Drug Abuse Patient Records regulations: The Federal rules restrict any use of the information to criminally investigate or prosecute any alcohol or drug abuse patient.[facility] RehabilitationIn the event this information is protected by the Federal Confidentiality of Alcohol and Drug Abuse Patient Records regulations: The Federal rules restrict any use of the information to criminally investigate or prosecute any alcohol or drug abuse patient.[facility] RehabilitationIn the event this information is protected by the Federal Confidentiality of Alcohol and Drug Abuse Patient Records regulations: The Federal rules restrict any use of the information to criminally investigate or prosecute any alcohol or drug abuse patient.[facility] RehabilitationIn the event this information is protected by the Federal Confidentiality of Alcohol and Drug Abuse Patient Records regulations: The Federal rules restrict any use of the information to criminally investigate or prosecute any alcohol or drug abuse patient.[facility] RehabilitationIn the event this information is protected by the Federal Confidentiality of Alcohol and Drug Abuse Patient Records regulations: The Federal rules restrict any use of the information to criminally investigate or prosecute any alcohol or drug abuse patient.[facility] RehabilitationIn the event this information is protected by the Federal Confidentiality of Alcohol and Drug Abuse Patient Records regulations: The Federal rules restrict any use of the information to criminally investigate or prosecute any alcohol or drug abuse patient.[facility] RehabilitationIn the event this information is protected by the Federal Confidentiality of Alcohol and Drug Abuse Patient Records regulations: The Federal rules restrict any use of the information to criminally investigate or prosecute any alcohol or drug abuse patient.[facility] RehabilitationIn the event this information is protected by the Federal Confidentiality of Alcohol and Drug Abuse Patient Records regulations: The Federal rules restrict any use of the information to criminally investigate or prosecute any alcohol or drug abuse patient.[facility] RehabilitationIn the event this information is protected by the Federal Confidentiality of Alcohol and Drug Abuse Patient Records regulations: The Federal rules restrict any use of the information to criminally investigate or prosecute any alcohol or drug abuse patient.[facility] RehabilitationIn the event this information is protected by the Federal Confidentiality of Alcohol and Drug Abuse Patient Records regulations: The Federal rules restrict any use of the information to criminally investigate or prosecute any alcohol or drug abuse patient.[facility] RehabilitationIn the event this information is protected by the Federal Confidentiality of Alcohol and Drug Abuse Patient Records regulations: The Federal rules restrict any use of the information to criminally investigate or prosecute any alcohol or drug abuse patient.[facility] RehabilitationIn the event this information is protected by the Federal Confidentiality of Alcohol and Drug Abuse Patient Records regulations: The Federal rules restrict any use of the information to criminally investigate or prosecute any alcohol or drug abuse patient.[facility] RehabilitationIn the event this information is protected by the Federal Confidentiality of Alcohol and Drug Abuse Patient Records regulations: The Federal rules restrict any use of the information to criminally investigate or prosecute any alcohol or drug abuse patient.[facility] RehabilitationIn the event this information is protected by the Federal Confidentiality of Alcohol and Drug Abuse Patient Records regulations: The Federal rules restrict any use of the information to criminally investigate or prosecute any alcohol or drug abuse patient.[facility] RehabilitationIn the event this information is protected by the Federal Confidentiality of Alcohol and Drug Abuse Patient Records regulations: The Federal rules restrict any use of the information to criminally investigate or prosecute any alcohol or drug abuse patient.[facility] RehabilitationIn the event this information is protected by the Federal Confidentiality of Alcohol and Drug Abuse Patient Records regulations: The Federal rules restrict any use of the information to criminally investigate or prosecute any alcohol or drug abuse patient.[facility] Teams (unrecognized sec tion and content) Bull Riveter Relationship Specialty Start Date End Date LayneEriberto mejia PCP - General 07/01/15 Bull Riveter Relationship Specialty Start Date End Date Roverto Eriberto Parker PCP - General 07/01/15 [employer]eter Relationship Specialty Start Date End Date Layne Eriberto Parker PCP - General 07/01/15 [employer]eter Relationship Specialty Start Date End Date LayneEriberto mejia PCP - General 07/01/15 [employer]eter Relationship Specialty Start Date End Date LayneEriberto mejia PCP - General 07/01/15 [employer]eter Relationship Specialty Start Date End Date LayneEriberto mejia PCP - General 07/01/15 [employer] Riveter Relationship Specialty Start Date End Date LayneEriberto mejia PCP - General 07/01/15 Team Status: Inactive Member Role Status Dates Stephane House MD Attending Provider Active Bull Riveter Relationship Specialty Start Date End Date Eriberto Layne PCP - General 07/01/15 [employer] Riveter Relationship Specialty Start Date End Date Eriberto Layne PCP - General 07/01/15 Bull Riveter Relationship Specialty Start Date End Date Eriberto Layne PCP - General 07/01/15 [employer] Riveter Relationship Specialty Start Date End Date Eriberto Layne PCP - General 07/01/15 Bull Riveter Relationship Specialty Start Date End Date Eriberto Layne PCP - General 07/01/15 Bull Riveter Relationship Specialty Start Date End Date Eriberto Layne PCP - General 07/01/15 Bull Riveter Relationship Specialty Start Date End Date Eriberto Layne PCP - General 07/01/15 Team Status: Inactive Member Role Status Dates April Garnica PA-C Attending Provider Active Bull Riveter Relationship Specialty Start Date End Date Eriberto Layne PCP - General 07/01/15 [employer] Riveter Relationship Specialty Start Date End Date Eriberto Layne PCP - General 07/01/15 Bull Riveter Relationship Specialty Start Date End Date Roverto Eriberto DO Keith PCP - General 07/01/15 Bull Riveter Relationship Specialty Start Date End Date RovertoEriberto DO Keith PCP - General 07/01/15 Reason for Visit (unrecogniz ed section and content) Reason Onset Date Comments Pre-surgical Evaluation 08/11/2022 Pre-op C OVID testing not needed Reason Comments Electronic Communication Reason Comments Radiology Pre Procedure Instructions Reason Comments Returning Patient's Call Reason Comments abdominal wall wound Reason Comments Radiology MRI Specialty Diagnoses / Procedures Referred By Contac t Referred To Contact MR IMAGING Diagnoses 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) Procedures MRI BRAIN WO/W IVCON MRI BRAIN BRAIN STEM W/O W/CONTRAST MATERIAL Susan Chavarria APRN.[employer] [address] [place] [address] Mr Imaging Referral ID Status Reason Start Date Expiration Date V isits Requested Visits Authorized [id number] Closed Auto-Generate d Referral 10/11/2022 11/10/2023 1 1 Specialty Diagnoses / Procedures Referred By Contac t Referred To Contact MR IMAGING Diagnoses 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) Procedures MRI BRAIN WO/W IVCON MRI BRAIN BRAIN STEM W/O W/CONTRAST MATERIAL Susan Chavarria, SARAN.[employer] RE[employer] [address] [place] [address] Mr Imaging Reason Comments Radiology MRI Reason Comments Follow Up Reason Onset Date Comments Outcomes 01/05/2023 90 day mRS Reason Comments Appointment Reason Comments Established Patient Follow-Up F/u Slow t ransit constipation Reason Comments Patient Update Reason Comments Patient Update Received Outside Medical Records Reason Comments Dysphagia Reason Comments Gynecologic Exam Goals (unrecognized section and content) Goals may be documented in a n alternate sectionGoals may be documented in an alternate section No data available for this section No data available for this sectionNot on filedocumented as of this encounter INFORMATION SOURCE (unrecogn ized section and content) DATE CREATED AUTHOR 01/24/2023 [facility] DATE CREATED AUTHOR AUTHOR'S ORGANIZ ATION 04/14/2023 [facility] DATE CREATED AUTHOR AUTHOR'S ORGANIZ ATION 05/10/2023 [facility] DATE CREATED AUTHOR AUTHOR'S ORGANIZ ATION 09/21/2023 [place] DATE CREATED AUTHOR AUTHOR'S ORGANIZ ATION 09/25/2023 [facility] DATE CREATED AUTHOR AUTHOR'S ORGANIZ ATION 12/22/2023 [facility] FOR RECORDS PERTAINING TO PATIENTS WHO ARE OR HAVE BEEN ENROLLED IN A CHEMICAL DEPENDENCY/SUBSTANCEABUSE PROGRAM, SOME INFORMATION MAY BE OMITTED. This clinical summary was aggregated from multiple sources. Caution should be exercised in using it in the provision of clinical care. This summary normalizes information from multiple sources, and as a consequence, information in this document may materially change the coding, format and clinical context of patient data. In addition, data may be omitted in some cases. CLINICAL DECISIONS SHOULD BE BASED ON THE PRIMARY CLINICAL RECORDS. [facility] [employer] [facility]. provides no warranty or guarantee of the accuracy or completeness of information in this document.
[2024-01-16 05:08] LABS: HBsAg Screen Negative (Negative); HCV Ab Non Reactive (Non Reactive); Hep A Ab, IgM Negative (Negative); Hep B Core Ab, IgM Negative (Negative)
== END 2024-01-15 06:30 | disposition home or self-care (01) ==
LOC: LAB 06:30
PROVIDERS: PCP Family Medicine; Visit Provider Family Medicine
DX: T74.21XA Adult sexual abuse, confirmed, initial encounter (principal)
CPT/HCPCS: 36415; 80074